=== PATIENT | male | born 1965 | race African-American/Black ===

== ENCOUNTER 2017-07-17 14:55 | Observation (INO) ==
[2017-07-17] MEDS ORDERED: SODIUM CHLORIDE 0.9% 500 ML IV STA (16:18)
--- NOTE | 2017-07-17 16:21 | EKG Report ---
Stationary ECG Study [facility] ER Test Date: 07/17/2017 4:03:47 PM Pat Name: JOSE MANUEL Department: Room: Gender: M Director Presales: : 1965 Requested by: Asa Barth Order Number: [id number] Sean MD: ERASMO HOUSTON Intervals [place] Rate: 116 P: 53 [place]: 154 QRS: 53 QRSD: 82 T: -61 QT: 296 QTc: 365 Interpretive Statements SINUS TACHYCARDIA LEFT ATRIAL ABNORMALITY LEFT VENTRICULAR HYPERTROPHY AND ST-T CHANGE Electronically Signed On 07-19-17 18:07:32 CDT by ERASMO HOUSTON [email or web address]
[2017-07-17 16:26] LABS: Basophils % 0.1 % (0.0-0.8); Eosinophils # 0.1 10*3/uL (0.0-0.87); Hematocrit 23.1 VOL% (42.0-52.0); Hemoglobin 6.9 GM/DL (14.0-18.0); Immature Granulocytes % 0.4 %; Immature Granulocytes Absolute 0.03 #; Lymphocytes # 1.6 10*3/uL (1.4-4.0); Lymphocytes % 20.2 % (21.2-54.2); Mean Corpuscular HGB Conc 29.9 GM/DL (32-36); Mean Corpuscular Hemoglobin 29 PG (27-34); Mean Corpuscular Volume 98.3 FL (87-102); Mean Platelet Volume 9.9 FL (9.6-12.0); Monocytes # 0.5 10*3/uL (0.11-0.8); Monocytes % 5.8 % (1.7-12.7); NRBC # 0.02 10*3/uL; Neutrophils # 5.9 10*3/uL (1.4-7.4); Neutrophils % 72.5 % (38.7-73.9); Platelet Count 436 T/CUMM (130-400); Red Blood Count 2.35 MC/CUMM (3.8-5.5); Red Cell Distribution Width 17.1 % (9.3-17.3); White Blood Count 8.1 T/CUMM (4-12)
--- NOTE | 2017-07-17 16:33 | Emergency Department Note ---
Ezio Caballero Manpreet, am scribing for, and in the presence of, Asa Contreras MD 16:19. Ben Caballero Charles R, MD, personally performed the services described in this documentation, ascribed by Mo Holguin in my presence, and it is both accurate and complete 632 . Arrival - Arrival Chief Complaint: Non-Specific Stated Complaint: Anemia ED Nursing Triage Note: Pt transferred from [facility] due to Low H&H that was drawn on 07-11-17. Significant HX. Mode of Arrival: Stretcher Limitations: Altered Mental Status Source: EMS - History of Present Illness HPI Narrative: Pt is a 52 y/o male who is transferred from [facility] with CC of low H&H that was drawn on 07-11-17. Pt has a PMHx of CVA, HTN, CAD and does not communicate. Pt also has large cubicle ulcers on his back. No other pains/ complaints reported to the ED. Onset (ago): hour(s) Consistency: constant Allergies/Adverse Reactions: Allergies Allergy/AdvReac Type Severity Reaction Status Date / Time No Known Allergies Allergy Verified 07/17/17 15:06 Review of System - Review of System ROS unobtainable: due to mental status (Secondary previous CVA) Medical,Surgical,& Family Hx - Medical History Cardio: History of: Cerebrovascular Disease, CAD, Hypertension Neurology: History of: Cerebrovascular Accident, Seizures Hematology: History of: Anemia - Surgical History Abdominal Surgeries: Surgical HX of: Abdominal Surgery (PEG) - Social History Smoking Status: Unknown if ever smoked Frequency of Alcohol Use: Unknown Type of Drug Use: Unknown Exam Vital Signs: Vital Signs Temperature 98.1 F 07/17/17 15:02 Pulse Rate 116 H 07/17/17 15:02 Respiratory Rate 22 07/17/17 15:31 Blood Pressure 140/87 07/17/17 15:02 O2 Sat by Pulse Oximetry 99 07/17/17 15:02 - General Exam limited due to: ALOC General appearance: other (Blank stare to right) - Eye Eye exam: Present: other (Sunken and pale conjictiva) - Neck Neck exam: Present: other (Torticollis of neck) - Respiratory Respiratory exam: Present: rales, rhonchi - Cardiovascular Cardiovascular exam: Present: normal rhythm, tachycardia - Rectal Exam Rectal exam: Present: heme (+) stool - Extremities Exam Extremities exam: Present: other (Atrophy of muscles) - Back Exam Back exam: Present: other (Large stage 4 cubicle ulcer on lower back) Course - Consultations Consultation #1: Hospitalist will admit patient Time: 16:58 Results - Labs CBC & BMP: 07/17/17 15:57 07/17/17 15:57 Lab Results: I have reviewed the patients labs Labs: Laboratory Tests 07/17/17 07/17/17 07/17/17 15:57 15:57 15:57 WBC 8.1 RBC 2.35 L Hgb 6.9 L Hct 23.1 L MCV 98.3 MCHC 29.9 L Plt Count 436 H Lymph % (Auto) 20.2 L INR 1.1 PT Patient/Control Mix 12.1 Sodium 140 Potassium 4.4 Chloride 105 Carbon Dioxide 28 Anion Gap 11.4 BUN 20 H Creatinine 0.90 GFR Calculation 108 BUN/Creatinine Ratio 22.00 H Glucose 110 H AST 67 H ALT 122 H Albumin 1.6 L Globulin 6.3 H Albumin/Globulin Ratio 0.2 L Disposition Clinical Impression: Debility, unspecified, History of CVA (cerebrovascular accident), Lower extremity weakness, Anemia, Hypoalbuminemia due to protein-calorie malnutrition , Failure to thrive, Sacral decubitus ulcer, stage IV, Chronic anticoagulation Case discussed with: patient Disposition: Still a Patient Condition: Stable Time of Disposition: 17:00
[2017-07-17 16:39] LABS: INR 1.1; PT Patient Result 12.1 SECS
[2017-07-17 16:50] LABS: Alanine Aminotransferase 122 U/L (16-61); Albumin 1.6 G/DL (3.4-5.0); Alkaline Phosphatase 91 U/L (45-117); Aspartate Amino Transferase 67 U/L (0-37); Bilirubin,Total < 0.39 MG/DL (0.2-1.0); Blood Urea Nitrogen 20 MG/DL (7-18); Calcium 8.8 MG/DL (8.5-10.1); Glucose 110 MG/DL (74-106); Magnesium 2.1 MG/DL (1.8-2.4); Osmolality,Calculated 282.4 MOS/KG (273-304); Potassium 4.4 MMOL/L (3.5-5.1); Sodium 140 MMOL/L (136-145); Total Protein 7.9 G/DL (6.4-8.3)
--- NOTE | 2017-07-17 17:01 | XRay Report ---
Single view the chest. Indication: Generalized weakness. The heart is normal in size. There is uncoiling of the thoracic aorta which often indicates chronic hypertension. There is a linear area of atelectasis in the right midlung field. There is mild hypoaeration at the left lung base. No consolidation, pneumothorax, or pleural effusion. Degenerative changes of the spinal column and shoulders. Impression: Right midlung atelectasis. Left basilar hypoaeration. PROCEDURE INTERPRETED AT [facility] DEPARTMENT OF RADIOLOGY Final Report Signed by: Dr. Janey Montenegro
[2017-07-17 17:21] LABS: Troponin I Only < 0.015 NG/ML (0.00-0.045)
[2017-07-17 17:53] LABS: Apearance,Urine CLEAR (Clear); Bilirubin,Urine Negative (Negative); Blood, Urine Negative (Negative); Glucose,Urine (UA) Negative (Negative); Ketones,Urine Negative (Negative); Nitrite,Urine Negative (Negative); Protein,Urine 30 MG/DL; RBC,Urine 1 /HPF (0-4); Squamous Epithelial Cell,Urine Occasional /HPF (0-10); Urine Color Yellow (Yellow); Urine Specific Gravity 1.013 (1.001-1.035); Urine Urobilinogen < 2.0 EU/DL (0.2-1.0); WBC,Urine 1 /HPF (0-6)
--- NOTE | 2017-07-17 18:10 | Hospitalist History & Physical ---
Assessment and Plan (1) Anemia Status: Acute Assessment and plan: The patient is admitted to the hospital for transfusion. We will continue his usual home medications and PEG tube feedings. Current Visit: Yes (2) Chronic anticoagulation Status: Acute Current Visit: Yes (3) History of CVA (cerebrovascular accident) Status: Acute Current Visit: Yes (4) Lower extremity weakness Status: Acute Current Visit: Yes (5) Sacral decubitus ulcer, stage IV Status: Acute Current Visit: Yes History of Present Illness Chief complaint: Anemia History of present illness: Mr. Edge is a 52 year old male who is a resident at [facility]. The patient had recently transferred from [facility] in [place]. The patient has apparently previous neurologic injury perhaps brain hemorrhage. The patient is awake and alert with right gaze preference. The patient has quadriplegia. The patient is noncommunicative. The patient does not appear to be in discomfort. The patient has large decubitus wounds on the sacrum. The patient was sent from [facility] after he was treated for osteomyelitis of the spine on account of the decubitus. The patient was found to be anemic at [facility] and referred to [facility] for transfusion. Home Medications Medication Instructions Recorded Confirmed Type Albuterol/Ipratropium Neb [Duoneb] 3 ml RESP TX RT Q6H 07/17/17 07/17/17 History Atorvastatin [Lipitor] 20 mg PEG DAILY@0900 07/17/17 07/17/17 History Baclofen Tab [Lioresal] 10 mg PEG TID@0900,1300,1700 07/17/17 07/17/17 History Carvedilol [Coreg] 25 mg PEG BID@0900,1700 07/17/17 07/17/17 History Diltiazem Tab [Cardizem Tab] 60 mg PEG QID@09,13,17,21 07/17/17 07/17/17 History Doxycycline Hyclate Cap 100 mg PEG BID@0900,2100 07/17/17 07/17/17 History [Vibramycin Cap] Fluticasone 50 Mcg Nasal [place] 1 spray BOTH NARES BID 07/17/17 07/17/17 History [Flonase Nasal [place]] Pantoprazole Tab [Protonix Tab] 40 mg PEG 0900 07/17/17 07/17/17 History Sennosides [Senna] 17.6 mg PO BEDTIME 07/17/17 07/17/17 History Warfarin [Coumadin] 7.5 mg PEG DAILY@2100 07/17/17 07/17/17 History hydrALAZINE TAB [Apresoline Tab] 100 mg PEG TID 07/17/17 07/17/17 History levETIRAcetam TAB [Keppra Tab] 500 mg PEG BID 07/17/17 07/17/17 History Allergies Allergy/AdvReac Type Severity Reaction Status Date / Time No Known Allergies Allergy Verified 07/17/17 15:06 Medical,Surgical,& Family Hx - Medical History Cardio: History of: Cerebrovascular Disease, CAD, Hypertension Neurology: History of: Cerebrovascular Accident, Seizures Hematology: History of: Anemia - Surgical History Abdominal Surgeries: Surgical HX of: Abdominal Surgery (PEG) - Family History Family History: Reports;: Family Hypertension - Social History Smoking Status: Former smoker Frequency of Alcohol Use: Unknown Type of Drug Use: Unknown Marital Status: Single Lives With:: shelter Functional capacity: bed bound ROS unobtainable: other (Records were reviewed. Patient is noncommunicative due to neurologic injury) Exam - Constitutional Vitals: Period Temp Pulse Resp BP Sys/Mckoy Pulse Ox Last 24 Hr 98.1 F-98.1 F 114-120 18-23 130-140/87-94 97-100 Exam: Constitutional System: No distress. No tremulousness. The patient has right gaze preference and is not communicative. The patient does not move extremities. The patient has muscular wasting of the lower extremities. Head: Normocephalic, atraumatic. Ears, Nose and Throat System: No evidence of Otitis or Mastoiditis. No epistaxis or discharge Eyes System: Pupils equal, round, and reactive. Extraocular muscles intact. Neck: Supple, without adenopathy, No jugular venous distention. No thyromegaly , neck mass, or prior surgery apparent. Respiratory System: Chest clear to auscultation. Cardiovascular System: Heart with regular rate and rhythm. No murmur. GI System: Abdomen soft, nontender. Normo active bowel sounds present. Musculoskeletal System: limbs with 1+ pedal edema. Full distal pulses. Neurological System: Unresponsive and quadriplegic Psychiatric System: Patient is mute Results - Labs CBC & BMP: 07/17/17 15:57 07/17/17 15:57 Lab Results: I have reviewed the past 24 hour labs
[2017-07-17] MEDS ORDERED: ONDANSETRON 4 MG/2 ML VIAL IV PRN (20:08)
[2017-07-17] MEDS ORDERED: SODIUM CHLORIDE 0.9% 250 ML IV PRN (20:08)
[2017-07-17] MEDS ORDERED: GLUCAGON 1 MG VIAL IM PRN (20:08)
[2017-07-17] MEDS ORDERED: MORPHINE 2 MG/1 ML SYRINGE IV PRN (20:08)
[2017-07-17] MEDS ORDERED: DEXTROSE 50% 25 GM/50 ML SYRINGE IV PRN (20:08)
[2017-07-17] MEDS ORDERED: ENOXAPARIN 40 MG/0.4 ML SYRINGE SUBCUT SCH (20:30)
[2017-07-17] MEDS: ALBUTEROL/IPRATROPIUM 3 ML NEB RESP TX SCH (20:39)
[2017-07-17] MEDS ORDERED: WARFARIN 7.5 MG TABLET PEG SCH (21:00)
[2017-07-17] MEDS ORDERED: SENNA 8.6 MG TABLET PO SCH (21:00)
[2017-07-17] MEDS: INSULIN LISPRO 100 UNIT/ML SUBCUT SCH (23:22)
[2017-07-17] MEDS: DILTIAZEM 60 MG TABLET PO SCH (23:31)
[2017-07-18] MEDS: ALBUTEROL/IPRATROPIUM 3 ML NEB RESP TX SCH ×2 (00:07→07:39)
[2017-07-18] MEDS: levETIRAcetam 500 MG TABLET PEG SCH ×2 (00:33→09:56)
[2017-07-18] MEDS: FLUTICASONE 50 MCG NASAL SPRAY 16 GM BOTTLE BOTH NARES SCH ×2 (00:33→10:01)
[2017-07-18] MEDS: DOXYCYCLINE HYCLATE 100 MG CAPSULE PEG SCH ×2 (00:33→09:56)
[2017-07-18] MEDS: INSULIN LISPRO 100 UNIT/ML SUBCUT SCH ×3 (00:37→13:00)
[2017-07-18] MEDS: ACETAMINOPHEN 325 MG TABLET PO PRN ×2 (01:09→09:55)
[2017-07-18] MEDS: SODIUM CHLORIDE 0.9% 1,000 ML IV SCH ×2 (05:31→12:59)
[2017-07-18] MEDS ORDERED: ATORVASTATIN 20 MG TABLET PEG SCH (09:00)
[2017-07-18] MEDS ORDERED: PANTOPRAZOLE 40 MG TABLET PO SCH ×2 (09:00)
[2017-07-18] MEDS ORDERED: CARVEDILOL 25 MG TABLET PEG SCH (09:00)
[2017-07-18] MEDS: DILTIAZEM 60 MG TABLET PO SCH ×2 (09:56→14:38)
[2017-07-18] MEDS: BACLOFEN 10 MG TABLET PEG SCH ×2 (09:56→14:38)
[2017-07-18] MEDS ORDERED: SODIUM HYPOCHLORITE 0.25% IRRIG 473 ML BOTTLE TOP SCH (10:00)
--- NOTE | 2017-07-18 10:15 | Discharge Summary ---
<Jeanette Middleton - Last Filed: 07/18/17 09:47> Hospital Course - Hospital Course Hospital Course: 52-year-old -[place] male who is a resident at [facility] recently transferred from [facility]. He apparently had previous neurologic injury with brain hemorrhage and quadriplegia. Patient is noncommunicative but does not appear appear to be in discomfort. He does have a large decubitus wound on the sacrum that is clean with wound care orders written. Patient was found to be severely anemic and admitted by the hospitalist on 07/17/2017 for blood transfusion. Patient received 3 units of blood and his posttransfusion H&H is improved. He will be transferred back to [facility] today. Care coordination, chart review, and completed discharge paperwork took approximately 30 minutes. - Time spent with patient Time with patient DS: Greater than 30 minutes Diagnosis - Discharge Diagnosis (1) History of CVA (cerebrovascular accident) Status: Chronic (2) Anemia Status: Chronic (3) Sacral decubitus ulcer, stage IV Status: Chronic Specialty Discharge - Follow Up or Referrals Follow up with: your,pcp [Other] - 1 Month Discharge Plan - Discharge Data Disposition: Disch/Xfer to Snf Condition at Discharge: Stable Discharge Diet: advance to your usual diet Activity: resume usual activities as tolerated - Discharge Medications Continue Albuterol/Ipratropium Neb [Duoneb] 3 ml RESP TX RT Q6H Warfarin [Coumadin] 7.5 mg PEG DAILY@2100 levETIRAcetam TAB [Keppra Tab] 500 mg PEG BID Pantoprazole Tab [Protonix Tab] 40 mg PEG 0900 hydrALAZINE TAB [Apresoline Tab] 100 mg PEG TID Fluticasone 50 Mcg Nasal [place] [Flonase Nasal [place]] 1 spray BOTH NARES BID Doxycycline Hyclate Cap [Vibramycin Cap] 100 mg PEG BID@0900,2100 Diltiazem Tab [Cardizem Tab] 60 mg PEG QID@09,13,17,21 Baclofen Tab [Lioresal] 10 mg PEG TID@0900,1300,1700 Atorvastatin [Lipitor] 20 mg PEG DAILY@0900 Sennosides [Senna] 17.6 mg PO BEDTIME Carvedilol [Coreg] 25 mg PEG BID@0900,1700 - Follow Up or Referral Follow Up: your,pcp [Other] - 1 Month - Forms/Instructions Exam - Constitutional Vitals: Period Temp Pulse Resp BP Sys/Mckoy Pulse Ox Last 24 Hr 97.5 F-101.1 F 104-123 16-23 99-141/53-94 95-100 Exam: 52-year-old -[place] male, no acute distress, right gaze preference, not communicative. Chest clear CV regular rate and rhythm Abdomen soft nontender Extremities with 1+ pedal edema Discharge Results Procedures and tests throughout hospitalization: Pending Orders 07/17/17 Blood Culture Stat 07/18/17 11:10 Basic Metabolic Panel w/Mg IN AM Labs on day of discharge: Labs from last 24 hours 07/18/17 07/18/17 07/17/17 11:40 05:38 23:35 WBC RBC Hgb Hct MCV MCH MCHC RDW Plt Count MPV Neut % (Auto) Lymph % (Auto) [place] % (Auto) Eos % (Auto) Baso % (Auto) Neut # (Auto) Lymph # (Auto) [place] # (Auto) Eos # (Auto) Baso # (Auto) Immature Gran % Nucleated RBC % Immature Gran # Nucleated RBCs # Immature Plt Fraction INR PT Patient/Control Mix Sodium Potassium Chloride Carbon Dioxide Anion Gap BUN Creatinine GFR Calculation BUN/Creatinine Ratio Glucose POC Glucose 132 H 131 H 140 H Calculated Osmolality Lactic Acid Calcium Magnesium Total Bilirubin AST ALT Alkaline Phosphatase Total Creatine Kinase CK-MB (CK-2) Troponin I Total Protein Albumin Globulin Albumin/Globulin Ratio Urine Color Urine Appearance Urine pH Ur Specific [place] Urine Protein Urine Glucose (UA) Urine Ketones Urine Blood Urine Nitrate Urine Bilirubin Urine Urobilinogen Urine Leukocytes Urine RBC Urine WBC Ur Squamous Epith Cells Ur Culture Indicated? Blood Type Antibody Screen Crossmatch Blood Bank Comment 07/17/17 07/17/17 07/17/17 22:11 17:50 15:57 WBC RBC Hgb Hct MCV MCH MCHC RDW Plt Count MPV Neut % (Auto) Lymph % (Auto) [place] % (Auto) Eos % (Auto) Baso % (Auto) Neut # (Auto) Lymph # (Auto) [place] # (Auto) Eos # (Auto) Baso # (Auto) Immature Gran % Nucleated RBC % Immature Gran # Nucleated RBCs # Immature Plt Fraction INR PT Patient/Control Mix Sodium Potassium Chloride Carbon Dioxide Anion Gap BUN Creatinine GFR Calculation BUN/Creatinine Ratio Glucose POC Glucose 115 H Calculated Osmolality Lactic Acid Calcium Magnesium Total Bilirubin AST ALT Alkaline Phosphatase Total Creatine Kinase CK-MB (CK-2) Troponin I Total Protein Albumin Globulin Albumin/Globulin Ratio Urine Color Yellow Urine Appearance Clear Urine pH 6.0 Ur Specific [place] 1.013 Urine Protein 30 Urine Glucose (UA) Negative Urine Ketones Negative Urine Blood Negative Urine Nitrate Negative Urine Bilirubin Negative Urine Urobilinogen < 2.0 H Urine Leukocytes Negative Urine RBC 1 Urine WBC 1 Ur Squamous Epith Cells Occasional Ur Culture Indicated? Not indicated Blood Type O POSITIVE Antibody Screen Cancelled Crossmatch See Detail Blood Bank Comment Cancelled 07/17/17 07/17/17 07/17/17 15:57 15:57 15:57 WBC RBC Hgb Hct MCV MCH MCHC RDW Plt Count MPV Neut % (Auto) Lymph % (Auto) [place] % (Auto) Eos % (Auto) Baso % (Auto) Neut # (Auto) Lymph # (Auto) [place] # (Auto) Eos # (Auto) Baso # (Auto) Immature Gran % Nucleated RBC % Immature Gran # Nucleated RBCs # Immature Plt Fraction INR PT Patient/Control Mix Sodium Potassium Chloride Carbon Dioxide Anion Gap BUN Creatinine GFR Calculation BUN/Creatinine Ratio Glucose POC Glucose Calculated Osmolality Lactic Acid 1.3 Calcium Magnesium Total Bilirubin AST ALT Alkaline Phosphatase Total Creatine Kinase 113 CK-MB (CK-2) 1.3 Troponin I < 0.015 Total Protein Albumin Globulin Albumin/Globulin Ratio Urine Color Urine Appearance Urine pH Ur Specific [place] Urine Protein Urine Glucose (UA) Urine Ketones Urine Blood Urine Nitrate Urine Bilirubin Urine Urobilinogen Urine Leukocytes Urine RBC Urine WBC Ur Squamous Epith Cells Ur Culture Indicated? Blood Type O POSITIVE Antibody Screen Negative Crossmatch Blood Bank Comment 07/17/17 07/17/17 07/17/17 15:57 15:57 15:57 WBC 8.1 RBC 2.35 L Hgb 6.9 L Hct 23.1 L MCV 98.3 MCH 29 MCHC 29.9 L RDW 17.1 Plt Count 436 H MPV 9.9 Neut % (Auto) 72.5 Lymph % (Auto) 20.2 L [place] % (Auto) 5.8 Eos % (Auto) 1.0 Baso % (Auto) 0.1 Neut # (Auto) 5.9 Lymph # (Auto) 1.6 [place] # (Auto) 0.5 Eos # (Auto) 0.1 Baso # (Auto) 0.0 Immature Gran % 0.4 Nucleated RBC % 0.2 Immature Gran # 0.03 Nucleated RBCs # 0.02 Immature Plt Fraction 0.0 INR 1.1 PT Patient/Control Mix 12.1 Sodium 140 Potassium 4.4 Chloride 105 Carbon Dioxide 28 Anion Gap 11.4 BUN 20 H Creatinine 0.90 GFR Calculation 108 BUN/Creatinine Ratio 22.00 H Glucose 110 H POC Glucose Calculated Osmolality 282.4 Lactic Acid Calcium 8.8 Magnesium 2.1 Total Bilirubin < 0.39 AST 67 H ALT 122 H Alkaline Phosphatase 91 Total Creatine Kinase CK-MB (CK-2) Troponin I Total Protein 7.9 Albumin 1.6 L Globulin 6.3 H Albumin/Globulin Ratio 0.2 L Urine Color Urine Appearance Urine pH Ur Specific [place] Urine Protein Urine Glucose (UA) Urine Ketones Urine Blood Urine Nitrate Urine Bilirubin Urine Urobilinogen Urine Leukocytes Urine RBC Urine WBC Ur Squamous Epith Cells Ur Culture Indicated? Blood Type Antibody Screen Crossmatch Blood Bank Comment DS: Provider Date of admission: 07/17/17 17:04 Primary care physician: . No PCP Attending physician on admission: Santhosh Mills MD Discharging clinician: DAVID Heath Expected date of discharge: 07/18/17 <Layla Seaman - Last Filed: 07/18/17 11:53> Diagnosis - Discharge Diagnosis (1) Debility, unspecified Status: Acute (2) History of CVA (cerebrovascular accident) Status: Chronic (3) Anemia Status: Chronic (4) Sacral decubitus ulcer, stage IV Status: Chronic Exam - Constitutional General appearance: no acute distress - Respiratory Respiratory exam: Present: clear to auscultation bilaterally - Cardiovascular Cardiovascular exam: Present: regular rate and rhythm - GI/Abdominal GI/Abdominal exam: Present: normal bowel sounds - Extremities Exam Extremities exam: Present: other (decubitus ulcer)
[2017-07-18 11:04] VITALS: BP 117/56
[2017-07-18 12:00] LABS: Calcium 8.4 MG/DL (8.5-10.1); Osmolality,Calculated 284.3 MOS/KG (273-304); Potassium 4.3 MMOL/L (3.5-5.1)
== END 2017-07-18 16:13 ==
LOC: N.ED 14:55 → N.EDINP 14:55 → SUATTDRO 17:04 → N.3E 19:04
PROVIDERS: ADMIT Family Medicine; ATTEND Internal Medicine

== ENCOUNTER 2017-08-25 08:19 | Inpatient (IN) ==
[2017-08-25] MEDS ORDERED: SODIUM CHLORIDE 0.9% 1,650 ML IV ONE (08:29)
[2017-08-25] MEDS ORDERED: SODIUM CHLORIDE 0.9% 1,000 ML IV SCH (08:30)
[2017-08-25] MEDS ORDERED: ETOMIDATE 20 MG/10 ML VIAL IV ONE ×2 (08:30→08:31)
[2017-08-25] MEDS ORDERED: VECURONIUM 10 MG VIAL IV ONE (08:31)
[2017-08-25] MEDS ORDERED: VECURONIUM 10 MG VIAL IV STA (08:56)
[2017-08-25] MEDS ORDERED: PROPOFOL 1,000 MG/100 ML BOTTLE IV ONE (08:56)
[2017-08-25] MEDS ORDERED: PIPERACILLIN/TAZOBACTAM 3,375 MG VIAL IV ONE (08:56)
[2017-08-25] MEDS: PROPOFOL 1,000 MG/100 ML BOTTLE IV SCH ×2 (09:02→20:48)
[2017-08-25 09:09] LABS: Partial Thromboplastin Time 39.4 SECS (0-40)
[2017-08-25 09:11] LABS: Apearance,Urine CLOUDY (Clear); Bacteria,Urine Many /HPF (Few); Bilirubin,Urine Negative (Negative); Blood, Urine Moderate mg/dL (Negative); Glucose,Urine (UA) Negative (Negative); Ketones,Urine Negative (Negative); Mucus,Urine Occasional /LPF (Occasional); Nitrite,Urine Positive (Negative); Protein,Urine 100 MG/DL; RBC,Urine 41 /HPF (0-4); Urine Color Yellow (Yellow); Urine Specific Gravity 1.017 (1.001-1.035); Urine Urobilinogen < 2.0 EU/DL (0.2-1.0); WBC,Urine 130 /HPF (0-6)
[2017-08-25] MEDS: PIPERACILLIN/TAZOBACTAM 3,375 MG in SODIUM CHLORIDE 0.9% 100 ML IV SCH ×2 (09:11→16:28)
[2017-08-25 09:14] LABS: INR 2.5
[2017-08-25 09:15] LABS: PT Patient Result 25.3 SECS
[2017-08-25 09:20] LABS: ABG Base Excess 0.3 MMOL/L (-2.5-2.5); ABG HCO3 24.7 MMOL/L (20-26); ABG Oxygen Saturation 95.6 % (95-100); ABG PCO2 45.2 MM HG (35-48); ABG PH 7.367 (7.35-7.45); ABG PO2 86.8 MM HG (80-95); ABG TCO2 23.6 MMOL/L (23-27)
[2017-08-25 09:22] LABS: Basophils % 0.1 % (0.0-0.8); Eosinophils # 0.1 10*3/uL (0.0-0.87); Eosinophils % 0.6 % (0.00-10.9); Hematocrit 42.4 VOL% (42.0-52.0); Immature Granulocytes % 0.2 %; Immature Granulocytes Absolute 0.02 #; Lymphocytes # 1.8 10*3/uL (1.4-4.0); Lymphocytes % 22.2 % (21.2-54.2); Mean Corpuscular HGB Conc 27.6 GM/DL (32-36); Mean Corpuscular Hemoglobin 30 PG (27-34); Mean Corpuscular Volume 108.4 FL (87-102); Monocytes # 0.2 10*3/uL (0.11-0.8); Monocytes % 2.7 % (1.7-12.7); NRBC # 0.05 10*3/uL; Neutrophils % 74.2 % (38.7-73.9); Platelet Count 284 T/CUMM (130-400); Red Blood Count 3.91 MC/CUMM (3.8-5.5); Red Cell Distribution Width 21.2 % (9.3-17.3); White Blood Count 8.1 T/CUMM (4-12)
[2017-08-25 09:28] LABS: Hemoglobin 11.7 GM/DL (14.0-18.0)
[2017-08-25] MEDS ORDERED: MIDAZOLAM 2 MG/2 ML VIAL ONE (09:28)
[2017-08-25] MEDS ORDERED: MIDAZOLAM 2 MG/2 ML VIAL IV STA (09:30)
[2017-08-25 09:37] LABS: Alanine Aminotransferase 53 U/L (16-61); Albumin 2.1 G/DL (3.4-5.0); Alkaline Phosphatase 116 U/L (45-117); Aspartate Amino Transferase 30 U/L (0-37); Bilirubin,Total < 0.39 MG/DL (0.2-1.0); Blood Urea Nitrogen 66 MG/DL (7-18); Calcium 9.2 MG/DL (8.5-10.1); Glucose 128 MG/DL (74-106); Osmolality,Calculated 351.5 MOS/KG (273-304); Potassium 4.4 MMOL/L (3.5-5.1); Total Protein 9.2 G/DL (6.4-8.3)
[2017-08-25 09:40] LABS: Sodium 168 MMOL/L (136-145)
[2017-08-25 09:50] LABS: Band Neutrophils 4 % (0-10); Giant Platelets Few; Hypochromasia 1+; Lymphocytes 30 % (20-55); Platelet Estimate Adequate; Segmented Neutrophils 65 % (50-85); Total Cells Counted 100
[2017-08-25] MEDS ORDERED: PIPERACILLIN/TAZOBACTAM 3,375 MG in SODIUM CHLORIDE 0.9% 100 ML IV SCH (11:00)
[2017-08-25] MEDS ORDERED: DEXTROSE 5% 1,000 ML IV SCH (11:00)
[2017-08-25] MEDS: SODIUM CHLORIDE 0.45% 1,000 ML IV SCH ×2 (11:34→17:20)
[2017-08-25] MEDS: MIDAZOLAM 100 MG in SODIUM CHLORIDE 0.9% 80 ML IV SCH (11:37)
[2017-08-25] MEDS: PHENYLEPHRINE DRIP 40 MG/250 ML PREMIX IV SCH ×5 (14:35→23:46)
[2017-08-25] MEDS: ACETAMINOPHEN 325 MG TABLET PO PRN ×2 (15:00→23:47)
[2017-08-25 15:51] LABS: ABG Base Excess -0.4 MMOL/L (-2.5-2.5); ABG HCO3 24.1 MMOL/L (20-26); ABG PCO2 30.4 MM HG (35-48); ABG PH 7.478 (7.35-7.45); ABG TCO2 20.8 MMOL/L (23-27); Glucose Heart Surgery 101 MG/DL (74-106); Hematocrit Heart Surgery 27.3 PERCENT (42-52); Hemoglobin Heart Surgery 8.8 G/DL (14.0-18.0); Potassium Heart/CVR 4.3 MMOL/L (3.5-5.1)
[2017-08-25 16:30] LABS: ABG Base Excess -0.2 MMOL/L (-2.5-2.5); ABG HCO3 22.1 MMOL/L (20-26); ABG Oxygen Saturation 98.7 % (95-100); ABG PCO2 28.1 MM HG (35-48); ABG PH 7.514 (7.35-7.45); ABG PO2 153.1 MM HG (80-95)
[2017-08-25] MEDS: levETIRAcetam 500 MG TABLET PEG SCH (20:52)
[2017-08-26 00:15] LABS: Basophils % 0.2 % (0.0-0.8); Hemoglobin 8.4 GM/DL (14.0-18.0); Immature Granulocytes % 1.1 %; Immature Granulocytes Absolute 0.13 #; Lymphocytes # 2.3 10*3/uL (1.4-4.0); Mean Corpuscular HGB Conc 28.1 GM/DL (32-36); Mean Corpuscular Hemoglobin 31 PG (27-34); Mean Corpuscular Volume 108.7 FL (87-102); Mean Platelet Volume 12.7 FL (9.6-12.0); Monocytes # 0.5 10*3/uL (0.11-0.8); Monocytes % 4.3 % (1.7-12.7); NRBC # 0.02 10*3/uL; Neutrophils # 8.7 10*3/uL (1.4-7.4); Neutrophils % 74.4 % (38.7-73.9); Platelet Count 235 T/CUMM (130-400); Red Blood Count 2.75 MC/CUMM (3.8-5.5); Red Cell Distribution Width 20.6 % (9.3-17.3); White Blood Count 11.7 T/CUMM (4-12)
[2017-08-26 00:20] LABS: Hematocrit 29.8 VOL% (42.0-52.0)
[2017-08-26] MEDS: SODIUM CHLORIDE 0.45% 1,000 ML IV SCH ×4 (01:03→22:53)
[2017-08-26] MEDS: PIPERACILLIN/TAZOBACTAM 3,375 MG in SODIUM CHLORIDE 0.9% 100 ML IV SCH ×3 (01:04→16:30)
[2017-08-26 02:05] LABS: INR 3.1
[2017-08-26 02:06] LABS: PT Patient Result 31.8 SECS
[2017-08-26] MEDS: PHENYLEPHRINE DRIP 40 MG/250 ML PREMIX IV SCH ×2 (02:22→10:00)
[2017-08-26 03:00] LABS: Albumin 1.6 G/DL (3.4-5.0); Bilirubin,Total 0.5 MG/DL (0.2-1.0); Calcium 7.4 MG/DL (8.5-10.1); Osmolality,Calculated 341.5 MOS/KG (273-304); Potassium 4.5 MMOL/L (3.5-5.1); Total Protein 6.3 G/DL (6.4-8.3)
[2017-08-26 03:37] LABS: Anisocytosis 1+; Hypochromasia 1+; Platelet Estimate Normal
[2017-08-26 03:45] LABS: ABG HCO3 21.9 MMOL/L (20-26); ABG Oxygen Saturation 99.9 % (95-100); ABG PCO2 33.1 MM HG (35-48); ABG PH 7.413 (7.35-7.45); Allen Test Positive; Pt O2 Delivery Device Ventilator
[2017-08-26] MEDS: levETIRAcetam 500 MG TABLET PEG SCH ×2 (09:00→20:04)
[2017-08-26] MEDS: MIDAZOLAM 100 MG in SODIUM CHLORIDE 0.9% 80 ML IV SCH (09:30)
[2017-08-26] MEDS: MUPIROCIN 2% OINT 22 GM TUBE TOP SCH ×2 (12:05→20:07)
[2017-08-26] MEDS: PROPOFOL 1,000 MG/100 ML BOTTLE IV SCH (16:30)
[2017-08-27] MEDS: PHENYLEPHRINE DRIP 40 MG/250 ML PREMIX IV SCH ×2 (00:07→14:23)
[2017-08-27] MEDS: PIPERACILLIN/TAZOBACTAM 3,375 MG in SODIUM CHLORIDE 0.9% 100 ML IV SCH ×2 (01:09→08:15)
[2017-08-27 03:23] LABS: ABG Base Excess -5.2 MMOL/L (-2.5-2.5); ABG HCO3 20.1 MMOL/L (20-26); ABG Oxygen Saturation 99.9 % (95-100); ABG PCO2 29.3 MM HG (35-48); ABG PH 7.417 (7.35-7.45); ABG TCO2 18.1 MMOL/L (23-27); Allen Test Positive; Pt O2 Delivery Device Ventilator
[2017-08-27] MEDS: SODIUM CHLORIDE 0.45% 1,000 ML IV SCH ×5 (05:53→23:31)
[2017-08-27 06:44] LABS: Basophils % 0.1 % (0.0-0.8); Eosinophils # 0.2 10*3/uL (0.0-0.87); Eosinophils % 2.4 % (0.00-10.9); Hematocrit 22.8 VOL% (42.0-52.0); Immature Granulocytes Absolute 0.07 #; Lymphocytes # 1.2 10*3/uL (1.4-4.0); Lymphocytes % 17.5 % (21.2-54.2); Mean Corpuscular HGB Conc 28.5 GM/DL (32-36); Mean Corpuscular Hemoglobin 30 PG (27-34); Mean Platelet Volume 12.6 FL (9.6-12.0); Monocytes # 0.3 10*3/uL (0.11-0.8); Monocytes % 4.3 % (1.7-12.7); Neutrophils # 5.2 10*3/uL (1.4-7.4); Neutrophils % 74.7 % (38.7-73.9); Red Cell Distribution Width 19.6 % (9.3-17.3)
[2017-08-27 07:42] LABS: Red Blood Count 2.15 MC/CUMM (3.8-5.5)
[2017-08-27 07:43] LABS: Hemoglobin 6.5 GM/DL (14.0-18.0); Platelet Count 170 T/CUMM (130-400)
[2017-08-27 07:54] LABS: Calcium 8.4 MG/DL (8.5-10.1)
[2017-08-27 07:55] LABS: Osmolality,Calculated 321.3 MOS/KG (273-304); Potassium 3.8 MMOL/L (3.5-5.1)
[2017-08-27 07:56] LABS: Band Neutrophils 3 % (0-10); Eosinophils 1 % (0-10); Hypochromasia 1+; Lymphocytes 9 % (20-55); Platelet Estimate Normal; Segmented Neutrophils 85 % (50-85); Total Cells Counted 100
[2017-08-27 07:57] LABS: Giant Platelets Few; Ovalocytes Slight
[2017-08-27] MEDS: PROPOFOL 1,000 MG/100 ML BOTTLE IV SCH ×2 (08:08→16:40)
[2017-08-27] MEDS: levETIRAcetam 500 MG TABLET PEG SCH ×2 (08:15→21:05)
[2017-08-27] MEDS: MIDAZOLAM 100 MG in SODIUM CHLORIDE 0.9% 80 ML IV SCH (08:42)
[2017-08-27] MEDS: MUPIROCIN 2% OINT 22 GM TUBE TOP SCH ×2 (09:01→21:05)
[2017-08-27 09:17] LABS: INR 3.6
[2017-08-27 09:25] LABS: PT Patient Result 36.1 SECS
[2017-08-27] MEDS ORDERED: SODIUM CHLORIDE 0.9% 250 ML IV PRN (10:00)
[2017-08-27 10:34] LABS: % Iron Saturation 35.8 % (18-50)
[2017-08-27] MEDS ORDERED: GLUCAGON 1 MG VIAL IM PRN (13:24)
[2017-08-27] MEDS: MEROPENEM 500 MG in SODIUM CHLORIDE 0.9% 50 ML IV SCH ×2 (14:28→21:05)
[2017-08-27] MEDS: INSULIN REGULAR 100 UNIT/ML SUBCUT SCH (17:48)
[2017-08-27 19:05] LABS: Hematocrit 28.9 VOL% (42.0-52.0)
[2017-08-27 19:08] LABS: Hemoglobin 9.1 GM/DL (14.0-18.0)
[2017-08-28] MEDS: INSULIN REGULAR 100 UNIT/ML SUBCUT SCH ×4 (01:03→18:29)
[2017-08-28] MEDS: SODIUM CHLORIDE 0.45% 1,000 ML IV SCH ×6 (01:03→20:17)
[2017-08-28 02:33] LABS: ABG Base Excess -4.1 MMOL/L (-2.5-2.5); ABG PCO2 28.8 MM HG (35-48); ABG PH 7.433 (7.35-7.45); ABG TCO2 17.6 MMOL/L (23-27)
[2017-08-28] MEDS: MEROPENEM 500 MG in SODIUM CHLORIDE 0.9% 50 ML IV SCH ×3 (05:49→20:45)
[2017-08-28 06:31] LABS: Basophils % 0.2 % (0.0-0.8); Eosinophils # 0.2 10*3/uL (0.0-0.87); Eosinophils % 2.7 % (0.00-10.9); Hematocrit 28.5 VOL% (42.0-52.0); Hemoglobin 8.6 GM/DL (14.0-18.0); Immature Granulocytes % 0.3 %; Immature Granulocytes Absolute 0.02 #; Lymphocytes # 1.1 10*3/uL (1.4-4.0); Mean Corpuscular HGB Conc 30.2 GM/DL (32-36); Mean Corpuscular Hemoglobin 30 PG (27-34); Mean Corpuscular Volume 98.6 FL (87-102); Monocytes # 0.3 10*3/uL (0.11-0.8); Monocytes % 4.4 % (1.7-12.7); Neutrophils # 4.4 10*3/uL (1.4-7.4); Neutrophils % 73.4 % (38.7-73.9); Platelet Count 182 T/CUMM (130-400); Red Blood Count 2.89 MC/CUMM (3.8-5.5); Red Cell Distribution Width 20.2 % (9.3-17.3)
[2017-08-28 06:37] LABS: INR 3.2
[2017-08-28 06:42] LABS: PT Patient Result 32.8 SECS
[2017-08-28 07:09] LABS: Magnesium 2.4 MG/DL (1.8-2.4); Prealbumin 11.5 MG/DL (20-40)
[2017-08-28 07:18] LABS: Eosinophils 3 % (0-10); Giant Platelets Few; Hypochromasia 1+; Lymphocytes 12 % (20-55); Ovalocytes Slight; Platelet Estimate Normal; Segmented Neutrophils 80 % (50-85); Total Cells Counted 100
[2017-08-28 07:40] LABS: Albumin 1.4 G/DL (3.4-5.0); Bilirubin,Total 0.4 MG/DL (0.2-1.0); Osmolality,Calculated 316.6 MOS/KG (273-304); Potassium 3.6 MMOL/L (3.5-5.1); Total Protein 5.8 G/DL (6.4-8.3)
[2017-08-28] MEDS: levETIRAcetam 500 MG TABLET PEG SCH ×2 (10:11→21:16)
[2017-08-28] MEDS: MUPIROCIN 2% OINT 22 GM TUBE TOP SCH ×2 (10:11→21:16)
[2017-08-28] MEDS: PROPOFOL 1,000 MG/100 ML BOTTLE IV SCH (10:13)
[2017-08-28] MEDS: hydrALAZINE 20 MG/1 ML VIAL IV PRN (18:35)
[2017-08-29] MEDS: INSULIN REGULAR 100 UNIT/ML SUBCUT SCH ×4 (00:16→18:15)
[2017-08-29 03:57] LABS: ABG Base Excess -1.7 MMOL/L (-2.5-2.5); ABG Oxygen Saturation 99.8 % (95-100); ABG PCO2 34.9 MM HG (35-48); ABG PH 7.417 (7.35-7.45); Allen Test Positive; Pt O2 Delivery Device Ventilator
[2017-08-29] MEDS: SODIUM CHLORIDE 0.45% 1,000 ML IV SCH ×2 (05:09→09:39)
[2017-08-29] MEDS: MEROPENEM 500 MG in SODIUM CHLORIDE 0.9% 50 ML IV SCH (05:32)
[2017-08-29 05:39] LABS: Basophils % 0.2 % (0.0-0.8); Eosinophils # 0.1 10*3/uL (0.0-0.87); Eosinophils % 2.3 % (0.00-10.9); Hematocrit 26.4 VOL% (42.0-52.0); Hemoglobin 8.1 GM/DL (14.0-18.0); Immature Granulocytes % 0.4 %; Immature Granulocytes Absolute 0.02 #; Lymphocytes # 1.2 10*3/uL (1.4-4.0); Lymphocytes % 23.2 % (21.2-54.2); Mean Corpuscular HGB Conc 30.7 GM/DL (32-36); Mean Corpuscular Hemoglobin 30 PG (27-34); Mean Corpuscular Volume 98.5 FL (87-102); Mean Platelet Volume 12.5 FL (9.6-12.0); Monocytes # 0.2 10*3/uL (0.11-0.8); Monocytes % 4.4 % (1.7-12.7); NRBC # 0.02 10*3/uL; Neutrophils # 3.6 10*3/uL (1.4-7.4); Neutrophils % 69.5 % (38.7-73.9); Platelet Count 173 T/CUMM (130-400); Red Blood Count 2.68 MC/CUMM (3.8-5.5); Red Cell Distribution Width 19.6 % (9.3-17.3); White Blood Count 5.2 T/CUMM (4-12)
[2017-08-29 05:46] LABS: INR 1.5; PT Patient Result 16.1 SECS
[2017-08-29 06:04] LABS: Band Neutrophils 1 % (0-10); Eosinophils 2 % (0-10); Giant Platelets Few; Hypochromasia 1+; Lymphocytes 22 % (20-55); Ovalocytes Slight; Platelet Estimate Normal; Segmented Neutrophils 73 % (50-85); Total Cells Counted 100
[2017-08-29 06:16] LABS: Calcium 7.8 MG/DL (8.5-10.1); Osmolality,Calculated 312.4 MOS/KG (273-304); Potassium 3.5 MMOL/L (3.5-5.1)
[2017-08-29] MEDS ORDERED: DEXTROSE 5% 1,000 ML IV SCH (08:30)
[2017-08-29] MEDS: SODIUM CHLORIDE 23.4% CONC INJ 38.5 MEQ in STERILE WATER INJ 1,000 ML IV SCH ×3 (09:29→23:54)
[2017-08-29] MEDS: levETIRAcetam 500 MG TABLET PEG SCH ×2 (09:32→22:03)
[2017-08-29] MEDS: MUPIROCIN 2% OINT 22 GM TUBE TOP SCH ×2 (09:32→22:03)
[2017-08-29] MEDS: PHENYLEPHRINE DRIP 40 MG/250 ML PREMIX IV SCH (09:39)
[2017-08-29] MEDS: hydrALAZINE 20 MG/1 ML VIAL IV PRN (09:47)
[2017-08-29] MEDS: cefTRIAXone 1,000 MG in SYRINGE 1 EACH IV SCH (10:11)
[2017-08-29] MEDS: MEROPENEM 500 MG in SYRINGE 1 EACH IV SCH ×2 (13:30→22:00)
[2017-08-29] MEDS: PROPOFOL 1,000 MG/100 ML BOTTLE IV SCH (18:15)
[2017-08-30] MEDS: INSULIN REGULAR 100 UNIT/ML SUBCUT SCH ×4 (01:11→17:30)
[2017-08-30] MEDS: hydrALAZINE 20 MG/1 ML VIAL IV PRN ×2 (01:40→20:21)
[2017-08-30 04:32] LABS: Pt O2 Delivery Device Ventilator
[2017-08-30 04:33] LABS: ABG Base Excess 0.5 MMOL/L (-2.5-2.5); ABG HCO3 24.9 MMOL/L (20-26); ABG PCO2 31.2 MM HG (35-48); ABG PH 7.484 (7.35-7.45); ABG TCO2 21.8 MMOL/L (23-27)
[2017-08-30] MEDS: SODIUM CHLORIDE 23.4% CONC INJ 38.5 MEQ in STERILE WATER INJ 1,000 ML IV SCH ×3 (05:08→15:34)
[2017-08-30 06:02] LABS: INR 1.1; PT Patient Result 11.9 SECS
[2017-08-30] MEDS: MEROPENEM 500 MG in SYRINGE 1 EACH IV SCH ×3 (06:10→20:30)
[2017-08-30] MEDS: MUPIROCIN 2% OINT 22 GM TUBE TOP SCH ×2 (09:29→20:21)
[2017-08-30] MEDS: levETIRAcetam 500 MG TABLET PEG SCH ×2 (09:29→20:21)
[2017-08-30] MEDS: PROPOFOL 1,000 MG/100 ML BOTTLE IV SCH ×2 (09:30→20:35)
[2017-08-30 10:05] LABS: Basophils % 0.2 % (0.0-0.8); Eosinophils # 0.1 10*3/uL (0.0-0.87); Eosinophils % 2.2 % (0.00-10.9); Hematocrit 25.5 VOL% (42.0-52.0); Immature Granulocytes % 0.7 %; Immature Granulocytes Absolute 0.04 #; Lymphocytes # 1.3 10*3/uL (1.4-4.0); Lymphocytes % 24.3 % (21.2-54.2); Mean Corpuscular HGB Conc 31.4 GM/DL (32-36); Mean Corpuscular Hemoglobin 31 PG (27-34); Mean Corpuscular Volume 97.7 FL (87-102); Monocytes # 0.4 10*3/uL (0.11-0.8); Monocytes % 6.5 % (1.7-12.7); Neutrophils # 3.6 10*3/uL (1.4-7.4); Neutrophils % 66.1 % (38.7-73.9); Platelet Count 166 T/CUMM (130-400); Red Blood Count 2.61 MC/CUMM (3.8-5.5); Red Cell Distribution Width 18.9 % (9.3-17.3); White Blood Count 5.4 T/CUMM (4-12)
[2017-08-30 10:26] LABS: Albumin 1.3 G/DL (3.4-5.0); Bilirubin,Total 0.4 MG/DL (0.2-1.0); Calcium 7.7 MG/DL (8.5-10.1); Osmolality,Calculated 295.6 MOS/KG (273-304); Potassium 3.7 MMOL/L (3.5-5.1); Total Protein 5.7 G/DL (6.4-8.3)
[2017-08-30] MEDS: cefTRIAXone 1,000 MG in SYRINGE 1 EACH IV SCH (11:10)
[2017-08-31] MEDS: INSULIN REGULAR 100 UNIT/ML SUBCUT SCH ×4 (00:32→18:03)
[2017-08-31] MEDS: SODIUM CHLORIDE 23.4% CONC INJ 38.5 MEQ in STERILE WATER INJ 1,000 ML IV SCH ×2 (01:41→02:08)
[2017-08-31 03:39] LABS: ABG Base Excess 1.3 MMOL/L (-2.5-2.5); ABG HCO3 25.6 MMOL/L (20-26); ABG Oxygen Saturation 99.7 % (95-100); ABG PCO2 37.2 MM HG (35-48); ABG PH 7.441 (7.35-7.45); ABG TCO2 23.4 MMOL/L (23-27); Pt O2 Delivery Device Ventilator
[2017-08-31 04:23] LABS: Basophils % 0.2 % (0.0-0.8); Eosinophils # 0.2 10*3/uL (0.0-0.87); Eosinophils % 3.6 % (0.00-10.9); Hemoglobin 8.3 GM/DL (14.0-18.0); Immature Granulocytes % 0.5 %; Immature Granulocytes Absolute 0.02 #; Lymphocytes # 1.3 10*3/uL (1.4-4.0); Lymphocytes % 30.2 % (21.2-54.2); Mean Corpuscular HGB Conc 31.9 GM/DL (32-36); Mean Corpuscular Hemoglobin 31 PG (27-34); Mean Corpuscular Volume 96.7 FL (87-102); Mean Platelet Volume 12.6 FL (9.6-12.0); Monocytes # 0.3 10*3/uL (0.11-0.8); Monocytes % 6.8 % (1.7-12.7); Neutrophils # 2.6 10*3/uL (1.4-7.4); Neutrophils % 58.7 % (38.7-73.9); Platelet Count 174 T/CUMM (130-400); Red Blood Count 2.69 MC/CUMM (3.8-5.5); Red Cell Distribution Width 18.6 % (9.3-17.3); White Blood Count 4.4 T/CUMM (4-12)
[2017-08-31 04:28] LABS: PT Patient Result 10.9 SECS
[2017-08-31 04:53] LABS: Albumin 1.4 G/DL (3.4-5.0); Bilirubin,Total 0.8 MG/DL (0.2-1.0); Calcium 8.1 MG/DL (8.5-10.1); Osmolality,Calculated 298.3 MOS/KG (273-304); Potassium 3.8 MMOL/L (3.5-5.1); Total Protein 6.1 G/DL (6.4-8.3)
[2017-08-31] MEDS: MEROPENEM 500 MG in SYRINGE 1 EACH IV SCH (06:00)
[2017-08-31] MEDS: LINEZOLID INJ 600 MG in PREMIX 1 EACH IV SCH ×2 (07:34→19:45)
[2017-08-31] MEDS: PROPOFOL 1,000 MG/100 ML BOTTLE IV SCH ×2 (07:35→17:36)
[2017-08-31] MEDS: DEXTROSE 5% 1,000 ML IV SCH ×3 (09:17→22:12)
[2017-08-31] MEDS: GENTAMICIN INJ 120 MG in PREMIX 1 EACH IV SCH ×2 (09:17→21:51)
[2017-08-31] MEDS: levETIRAcetam 500 MG TABLET PEG SCH ×2 (09:17→21:51)
[2017-08-31] MEDS: MUPIROCIN 2% OINT 22 GM TUBE TOP SCH ×2 (09:18→21:52)
[2017-09-01] MEDS: PROPOFOL 1,000 MG/100 ML BOTTLE IV SCH ×3 (03:37→21:29)
[2017-09-01 03:45] LABS: ABG Base Excess 3.7 MMOL/L (-2.5-2.5); ABG HCO3 27.4 MMOL/L (20-26); ABG Oxygen Saturation 98.9 % (95-100); ABG PCO2 37.6 MM HG (35-48); ABG PO2 210.2 MM HG (80-95); ABG TCO2 28.5 MMOL/L (23-27)
[2017-09-01 04:03] LABS: Eosinophils # 0.1 10*3/uL (0.0-0.87); Eosinophils % 2.3 % (0.00-10.9); Hematocrit 25.4 VOL% (42.0-52.0); Hemoglobin 7.9 GM/DL (14.0-18.0); Immature Granulocytes % 0.5 %; Immature Granulocytes Absolute 0.02 #; Lymphocytes # 1.3 10*3/uL (1.4-4.0); Lymphocytes % 31.5 % (21.2-54.2); Mean Corpuscular HGB Conc 31.1 GM/DL (32-36); Mean Corpuscular Hemoglobin 31 PG (27-34); Mean Corpuscular Volume 98.1 FL (87-102); Mean Platelet Volume 12.7 FL (9.6-12.0); Monocytes # 0.3 10*3/uL (0.11-0.8); Monocytes % 7.3 % (1.7-12.7); Neutrophils # 2.3 10*3/uL (1.4-7.4); Neutrophils % 58.4 % (38.7-73.9); Platelet Count 211 T/CUMM (130-400); Red Blood Count 2.59 MC/CUMM (3.8-5.5); Red Cell Distribution Width 17.8 % (9.3-17.3)
[2017-09-01 04:15] LABS: PT Patient Result 10.8 SECS
[2017-09-01] MEDS: DEXTROSE 5% 1,000 ML IV SCH ×3 (04:30→14:11)
[2017-09-01 04:44] LABS: Hypochromasia 1+
[2017-09-01 04:45] LABS: Microcytosis 1+; Platelet Estimate Normal
[2017-09-01 04:46] LABS: Albumin 1.4 G/DL (3.4-5.0); Bilirubin,Total 0.9 MG/DL (0.2-1.0); Calcium 8.1 MG/DL (8.5-10.1); Osmolality,Calculated 298.3 MOS/KG (273-304); Potassium 4.1 MMOL/L (3.5-5.1); Total Protein 5.9 G/DL (6.4-8.3)
[2017-09-01] MEDS: INSULIN REGULAR 100 UNIT/ML SUBCUT SCH ×4 (05:55→18:01)
[2017-09-01] MEDS: LINEZOLID INJ 600 MG in PREMIX 1 EACH IV SCH ×2 (08:04→22:17)
[2017-09-01] MEDS ORDERED: GENTAMICIN INJ 280 MG in SODIUM CHLORIDE 0.9% 100 ML IV SCH (09:00)
[2017-09-01] MEDS: levETIRAcetam 500 MG TABLET PEG SCH ×2 (09:08→22:16)
[2017-09-01] MEDS: MUPIROCIN 2% OINT 22 GM TUBE TOP SCH ×2 (09:09→22:17)
[2017-09-02] MEDS: INSULIN REGULAR 100 UNIT/ML SUBCUT SCH ×4 (01:02→19:30)
[2017-09-02] MEDS: DEXTROSE 5% 1,000 ML IV SCH ×3 (01:03→12:14)
[2017-09-02] MEDS: LINEZOLID INJ 600 MG in PREMIX 1 EACH IV SCH (08:05)
[2017-09-02] MEDS: PROPOFOL 1,000 MG/100 ML BOTTLE IV SCH (09:05)
[2017-09-02] MEDS: MUPIROCIN 2% OINT 22 GM TUBE TOP SCH ×2 (09:30→22:50)
[2017-09-02] MEDS: levETIRAcetam 500 MG TABLET PEG SCH ×2 (09:30→22:00)
[2017-09-02 09:55] LABS: Calcium 8.1 MG/DL (8.5-10.1); Magnesium 1.9 MG/DL (1.8-2.4); Osmolality,Calculated 295.4 MOS/KG (273-304); Prealbumin 19.5 MG/DL (20-40)
[2017-09-02 10:02] LABS: Basophils % 0.2 % (0.0-0.8); Eosinophils # 0.1 10*3/uL (0.0-0.87); Eosinophils % 1.5 % (0.00-10.9); Hematocrit 28.8 VOL% (42.0-52.0); Hemoglobin 8.8 GM/DL (14.0-18.0); Immature Granulocytes % 0.7 %; Immature Granulocytes Absolute 0.03 #; Lymphocytes % 24.8 % (21.2-54.2); Mean Corpuscular HGB Conc 30.6 GM/DL (32-36); Mean Corpuscular Hemoglobin 30 PG (27-34); Mean Platelet Volume 12.4 FL (9.6-12.0); Monocytes # 0.3 10*3/uL (0.11-0.8); Monocytes % 6.7 % (1.7-12.7); NRBC # 0.02 10*3/uL; Neutrophils # 2.7 10*3/uL (1.4-7.4); Neutrophils % 66.1 % (38.7-73.9); Platelet Count 179 T/CUMM (130-400); Red Blood Count 2.94 MC/CUMM (3.8-5.5); Red Cell Distribution Width 18.2 % (9.3-17.3)
[2017-09-02] MEDS: DEXTROSE 5% IV SCH (10:02)
[2017-09-02] MEDS: GENTAMICIN IV SCH (10:02)
[2017-09-02 10:15] LABS: PT Patient Result 10.9 SECS
[2017-09-02 10:24] LABS: ABG Base Excess 3.8 MMOL/L (-2.5-2.5); ABG HCO3 27.8 MMOL/L (20-26); ABG Oxygen Saturation 99.8 % (95-100); ABG PCO2 41.8 MM HG (35-48); ABG PH 7.438 (7.35-7.45); ABG TCO2 26.7 MMOL/L (23-27)
[2017-09-02] MEDS: LINEZOLID 600 MG TABLET PO SCH (22:00)
[2017-09-03] MEDS: PROPOFOL 1,000 MG/100 ML BOTTLE IV SCH ×2 (01:33→09:08)
[2017-09-03] MEDS: INSULIN REGULAR 100 UNIT/ML SUBCUT SCH ×4 (01:37→18:22)
[2017-09-03] MEDS: DEXTROSE 5% 1,000 ML IV SCH ×4 (01:38→18:21)
[2017-09-03 03:34] LABS: Allen Test Positive; Pt O2 Delivery Device Ventilator
[2017-09-03 03:36] LABS: ABG Base Excess 2.9 MMOL/L (-2.5-2.5); ABG Oxygen Saturation 97.4 % (95-100); ABG PCO2 39.9 MM HG (35-48); ABG PH 7.441 (7.35-7.45); ABG PO2 86.8 MM HG (80-95); ABG TCO2 25.5 MMOL/L (23-27)
[2017-09-03 03:52] LABS: Basophils % 0.2 % (0.0-0.8); Eosinophils # 0.1 10*3/uL (0.0-0.87); Eosinophils % 2.5 % (0.00-10.9); Hematocrit 26.9 VOL% (42.0-52.0); Hemoglobin 8.2 GM/DL (14.0-18.0); Immature Granulocytes % 0.4 %; Immature Granulocytes Absolute 0.02 #; Lymphocytes # 1.8 10*3/uL (1.4-4.0); Mean Corpuscular HGB Conc 30.5 GM/DL (32-36); Mean Corpuscular Hemoglobin 31 PG (27-34); Mean Platelet Volume 11.6 FL (9.6-12.0); Monocytes # 0.3 10*3/uL (0.11-0.8); Monocytes % 6.5 % (1.7-12.7); Neutrophils # 2.9 10*3/uL (1.4-7.4); Neutrophils % 55.4 % (38.7-73.9); Platelet Count 267 T/CUMM (130-400); Red Blood Count 2.69 MC/CUMM (3.8-5.5); Red Cell Distribution Width 18.7 % (9.3-17.3); White Blood Count 5.2 T/CUMM (4-12)
[2017-09-03 04:12] LABS: PT Patient Result 10.9 SECS
[2017-09-03 04:20] LABS: Calcium 7.7 MG/DL (8.5-10.1); Magnesium 1.8 MG/DL (1.8-2.4); Osmolality,Calculated 292.1 MOS/KG (273-304); Potassium 4.1 MMOL/L (3.5-5.1)
[2017-09-03] MEDS: levETIRAcetam 500 MG TABLET PEG SCH ×2 (09:26→20:35)
[2017-09-03] MEDS: DEXTROSE 5% IV SCH (09:26)
[2017-09-03] MEDS: LINEZOLID 600 MG TABLET PO SCH ×2 (09:26→20:35)
[2017-09-03] MEDS: GENTAMICIN IV SCH (09:26)
[2017-09-03] MEDS: fentaNYL INJ 1,250 MCG in SODIUM CHLORIDE 0.45% 225 ML IV SCH (09:30)
[2017-09-03] MEDS ORDERED: fentaNYL INJ 1,250 MCG in SODIUM CHLORIDE 0.9% 225 ML IV SCH (09:30)
[2017-09-03] MEDS: MUPIROCIN 2% OINT 22 GM TUBE TOP SCH ×2 (09:37→20:35)
[2017-09-03 12:55] LABS: ABG HCO3 27.1 MMOL/L (20-26); ABG Oxygen Saturation 99.5 % (95-100); ABG PCO2 41.1 MM HG (35-48); ABG PH 7.433 (7.35-7.45); ABG TCO2 25.9 MMOL/L (23-27)
[2017-09-04] MEDS: DEXTROSE 5% 1,000 ML IV SCH ×4 (00:22→21:47)
[2017-09-04] MEDS: INSULIN REGULAR 100 UNIT/ML SUBCUT SCH ×4 (00:22→18:51)
[2017-09-04] MEDS: hydrALAZINE 20 MG/1 ML VIAL IV PRN (02:26)
[2017-09-04] MEDS: fentaNYL INJ 1,250 MCG in SODIUM CHLORIDE 0.45% 225 ML IV SCH ×2 (03:15→15:09)
[2017-09-04] MEDS: ACETAMINOPHEN 325 MG TABLET PO PRN (03:34)
[2017-09-04 03:43] LABS: ABG Base Excess 3.8 MMOL/L (-2.5-2.5); ABG HCO3 27.9 MMOL/L (20-26); ABG Oxygen Saturation 99.4 % (95-100); ABG PCO2 38.6 MM HG (35-48); ABG PH 7.465 (7.35-7.45); ABG TCO2 25.5 MMOL/L (23-27)
[2017-09-04 05:45] LABS: Basophils % 0.3 % (0.0-0.8); Eosinophils # 0.1 10*3/uL (0.0-0.87); Eosinophils % 1.4 % (0.00-10.9); Hematocrit 27.5 VOL% (42.0-52.0); Hemoglobin 8.4 GM/DL (14.0-18.0); Immature Granulocytes Absolute 0.08 #; Lymphocytes # 2.2 10*3/uL (1.4-4.0); Lymphocytes % 27.3 % (21.2-54.2); Mean Corpuscular HGB Conc 30.5 GM/DL (32-36); Mean Corpuscular Hemoglobin 30 PG (27-34); Mean Corpuscular Volume 97.5 FL (87-102); Mean Platelet Volume 10.9 FL (9.6-12.0); Monocytes # 0.4 10*3/uL (0.11-0.8); Monocytes % 4.5 % (1.7-12.7); NRBC # 0.02 10*3/uL; Neutrophils # 5.3 10*3/uL (1.4-7.4); Neutrophils % 65.5 % (38.7-73.9); Platelet Count 325 T/CUMM (130-400); Red Blood Count 2.82 MC/CUMM (3.8-5.5); Red Cell Distribution Width 17.9 % (9.3-17.3)
[2017-09-04 06:13] LABS: Calcium 7.9 MG/DL (8.5-10.1); Magnesium 1.7 MG/DL (1.8-2.4); Osmolality,Calculated 288.3 MOS/KG (273-304); Potassium 4.3 MMOL/L (3.5-5.1)
[2017-09-04 08:20] LABS: ABG Base Excess 4.5 MMOL/L (-2.5-2.5); ABG HCO3 28.5 MMOL/L (20-26); ABG Oxygen Saturation 99.4 % (95-100); ABG PCO2 41.3 MM HG (35-48); ABG PH 7.453 (7.35-7.45); ABG TCO2 26.8 MMOL/L (23-27)
[2017-09-04] MEDS: GENTAMICIN IV SCH (10:16)
[2017-09-04] MEDS: DEXTROSE 5% IV SCH (10:16)
[2017-09-04] MEDS: levETIRAcetam 500 MG TABLET PEG SCH ×2 (10:18→20:31)
[2017-09-04] MEDS: LINEZOLID 600 MG TABLET PO SCH ×2 (10:18→20:31)
[2017-09-04] MEDS: MUPIROCIN 2% OINT 22 GM TUBE TOP SCH ×2 (10:33→21:10)
[2017-09-04] MEDS: PROPOFOL 1,000 MG/100 ML BOTTLE IV SCH (10:33)
[2017-09-05] MEDS: INSULIN REGULAR 100 UNIT/ML SUBCUT SCH ×5 (00:36→23:32)
[2017-09-05] MEDS: fentaNYL INJ 1,250 MCG in SODIUM CHLORIDE 0.45% 225 ML IV SCH ×3 (02:20→23:14)
[2017-09-05 04:46] LABS: Basophils % 0.2 % (0.0-0.8); Eosinophils # 0.2 10*3/uL (0.0-0.87); Eosinophils % 3.4 % (0.00-10.9); Hematocrit 23.3 VOL% (42.0-52.0); Hemoglobin 7.3 GM/DL (14.0-18.0); Immature Granulocytes % 0.4 %; Immature Granulocytes Absolute 0.02 #; Lymphocytes # 1.5 10*3/uL (1.4-4.0); Lymphocytes % 30.7 % (21.2-54.2); Mean Corpuscular HGB Conc 31.3 GM/DL (32-36); Mean Corpuscular Hemoglobin 31 PG (27-34); Mean Corpuscular Volume 98.7 FL (87-102); Mean Platelet Volume 10.7 FL (9.6-12.0); Monocytes # 0.4 10*3/uL (0.11-0.8); Monocytes % 7.2 % (1.7-12.7); Neutrophils # 2.9 10*3/uL (1.4-7.4); Neutrophils % 58.1 % (38.7-73.9); Platelet Count 288 T/CUMM (130-400); Red Blood Count 2.36 MC/CUMM (3.8-5.5); Red Cell Distribution Width 17.9 % (9.3-17.3)
[2017-09-05 05:04] LABS: Calcium 7.9 MG/DL (8.5-10.1); Magnesium 1.9 MG/DL (1.8-2.4); Osmolality,Calculated 286.4 MOS/KG (273-304); Potassium 4.3 MMOL/L (3.5-5.1)
[2017-09-05 07:36] LABS: ABG Base Excess 6.1 MMOL/L (-2.5-2.5); ABG Oxygen Saturation 99.7 % (95-100); ABG PCO2 41.9 MM HG (35-48); ABG PH 7.469 (7.35-7.45); ABG TCO2 28.2 MMOL/L (23-27); Allen Test Positive
[2017-09-05] MEDS: DEXTROSE 5% 1,000 ML IV SCH ×2 (08:29→18:11)
[2017-09-05] MEDS: levETIRAcetam 500 MG TABLET PEG SCH ×2 (08:40→20:41)
[2017-09-05] MEDS: MUPIROCIN 2% OINT 22 GM TUBE TOP SCH ×2 (08:40→20:41)
[2017-09-05] MEDS: LINEZOLID 600 MG TABLET PO SCH ×2 (08:40→20:41)
[2017-09-05] MEDS: PROPOFOL 1,000 MG/100 ML BOTTLE IV SCH (09:00)
[2017-09-05] MEDS: DEXTROSE 5% IV SCH (09:17)
[2017-09-05] MEDS: GENTAMICIN IV SCH (09:17)
[2017-09-05] MEDS ORDERED: SODIUM CHLORIDE 0.9% 1,000 ML IV PRN (10:37)
[2017-09-05] MEDS: CARVEDILOL 6.25 MG TABLET PO SCH ×2 (11:20→20:41)
[2017-09-05 18:51] LABS: Hematocrit 31.9 VOL% (42.0-52.0)
[2017-09-05 18:52] LABS: Hemoglobin 10.2 GM/DL (14.0-18.0)
[2017-09-06 03:15] LABS: ABG Base Excess 5.6 MMOL/L (-2.5-2.5); ABG HCO3 29.5 MMOL/L (20-26); ABG Oxygen Saturation 99.1 % (95-100); ABG PCO2 45.9 MM HG (35-48); ABG PH 7.433 (7.35-7.45); ABG TCO2 28.1 MMOL/L (23-27); Allen Test Positive; Pt O2 Delivery Device Ventilator
[2017-09-06] MEDS: PROPOFOL 1,000 MG/100 ML BOTTLE IV SCH ×2 (03:19→13:24)
[2017-09-06] MEDS: DEXTROSE 5% 1,000 ML IV SCH ×2 (03:54→15:00)
[2017-09-06 04:59] LABS: Basophils % 0.4 % (0.0-0.8); Eosinophils # 0.2 10*3/uL (0.0-0.87); Eosinophils % 3.3 % (0.00-10.9); Hematocrit 29.5 VOL% (42.0-52.0); Hemoglobin 9.5 GM/DL (14.0-18.0); Immature Granulocytes % 0.4 %; Immature Granulocytes Absolute 0.02 #; Lymphocytes # 1.5 10*3/uL (1.4-4.0); Lymphocytes % 26.9 % (21.2-54.2); Mean Corpuscular HGB Conc 32.2 GM/DL (32-36); Mean Corpuscular Hemoglobin 31 PG (27-34); Mean Corpuscular Volume 96.1 FL (87-102); Mean Platelet Volume 11.3 FL (9.6-12.0); Monocytes # 0.4 10*3/uL (0.11-0.8); Neutrophils # 3.4 10*3/uL (1.4-7.4); Platelet Count 187 T/CUMM (130-400); Red Blood Count 3.07 MC/CUMM (3.8-5.5); Red Cell Distribution Width 16.5 % (9.3-17.3); White Blood Count 5.5 T/CUMM (4-12)
[2017-09-06 05:26] LABS: Calcium 8.3 MG/DL (8.5-10.1); Osmolality,Calculated 280.7 MOS/KG (273-304); Potassium 4.2 MMOL/L (3.5-5.1)
[2017-09-06 05:40] LABS: Band Neutrophils 2 % (0-10); Eosinophils 4 % (0-10); Lymphocytes 23 % (20-55); Segmented Neutrophils 66 % (50-85); Total Cells Counted 100
[2017-09-06 05:41] LABS: Hypochromasia 1+; Macrocytosis Slight
[2017-09-06 05:43] LABS: Polychromasia Slight
[2017-09-06] MEDS: INSULIN REGULAR 100 UNIT/ML SUBCUT SCH ×4 (06:08→23:37)
[2017-09-06] MEDS: MUPIROCIN 2% OINT 22 GM TUBE TOP SCH ×2 (08:13→21:06)
[2017-09-06] MEDS: CARVEDILOL 6.25 MG TABLET PO SCH ×2 (08:13→21:05)
[2017-09-06] MEDS: GENTAMICIN IV SCH (08:13)
[2017-09-06] MEDS: levETIRAcetam 500 MG TABLET PEG SCH ×2 (08:13→21:05)
[2017-09-06] MEDS: LINEZOLID 600 MG TABLET PO SCH ×2 (08:13→21:05)
[2017-09-06] MEDS: DEXTROSE 5% IV SCH (08:13)
[2017-09-06] MEDS: fentaNYL INJ 1,250 MCG in SODIUM CHLORIDE 0.45% 225 ML IV SCH ×2 (08:47→20:09)
[2017-09-06] MEDS: hydrALAZINE 20 MG/1 ML VIAL IV PRN (14:10)
[2017-09-06] MEDS: ENOXAPARIN 30 MG/0.3 ML SYRINGE SUBCUT SCH (16:55)
[2017-09-07] MEDS: DEXTROSE 5% 1,000 ML IV SCH (03:30)
[2017-09-07 03:31] LABS: ABG Base Excess 5.2 MMOL/L (-2.5-2.5); ABG HCO3 29.2 MMOL/L (20-26); ABG Oxygen Saturation 98.9 % (95-100); ABG PCO2 46.6 MM HG (35-48); ABG PH 7.423 (7.35-7.45); ABG TCO2 27.6 MMOL/L (23-27); Allen Test Positive; Pt O2 Delivery Device Ventilator
[2017-09-07 03:51] LABS: Basophils % 0.4 % (0.0-0.8); Eosinophils # 0.1 10*3/uL (0.0-0.87); Eosinophils % 2.6 % (0.00-10.9); Hematocrit 34.1 VOL% (42.0-52.0); Hemoglobin 10.7 GM/DL (14.0-18.0); Immature Granulocytes % 0.2 %; Immature Granulocytes Absolute 0.01 #; Lymphocytes # 1.5 10*3/uL (1.4-4.0); Lymphocytes % 27.8 % (21.2-54.2); Mean Corpuscular HGB Conc 31.4 GM/DL (32-36); Mean Corpuscular Hemoglobin 31 PG (27-34); Mean Corpuscular Volume 98.6 FL (87-102); Mean Platelet Volume 10.2 FL (9.6-12.0); Monocytes # 0.6 10*3/uL (0.11-0.8); Monocytes % 10.6 % (1.7-12.7); Neutrophils # 3.2 10*3/uL (1.4-7.4); Neutrophils % 58.4 % (38.7-73.9); Platelet Count 269 T/CUMM (130-400); Red Blood Count 3.46 MC/CUMM (3.8-5.5); Red Cell Distribution Width 16.7 % (9.3-17.3); White Blood Count 5.5 T/CUMM (4-12)
[2017-09-07] MEDS: INSULIN REGULAR 100 UNIT/ML SUBCUT SCH ×3 (07:23→18:34)
[2017-09-07] MEDS: PROPOFOL 1,000 MG/100 ML BOTTLE IV SCH ×2 (07:24→18:28)
[2017-09-07] MEDS: SODIUM CHLOR 0.45% KCL 20 MEQ 20 MEQ/1,000 ML BAG IV SCH (09:23)
[2017-09-07] MEDS: DEXTROSE 5% IV SCH (09:31)
[2017-09-07] MEDS: GENTAMICIN IV SCH (09:31)
[2017-09-07] MEDS: MUPIROCIN 2% OINT 22 GM TUBE TOP SCH ×2 (09:36→21:23)
[2017-09-07] MEDS: levETIRAcetam 500 MG TABLET PEG SCH ×2 (09:37→21:23)
[2017-09-07] MEDS: LINEZOLID 600 MG TABLET PO SCH ×2 (09:37→21:23)
[2017-09-07] MEDS: CARVEDILOL 6.25 MG TABLET PO SCH ×2 (09:37→21:23)
[2017-09-07] MEDS: fentaNYL INJ 1,250 MCG in SODIUM CHLORIDE 0.45% 225 ML IV SCH ×2 (13:49→23:54)
[2017-09-07] MEDS: ENOXAPARIN 30 MG/0.3 ML SYRINGE SUBCUT SCH (16:17)
[2017-09-08 02:48] LABS: ABG Base Excess 6.4 MMOL/L (-2.5-2.5); ABG HCO3 30.2 MMOL/L (20-26); ABG Oxygen Saturation 98.7 % (95-100); ABG PCO2 46.2 MM HG (35-48); ABG TCO2 28.7 MMOL/L (23-27); Allen Test Positive; Pt O2 Delivery Device Ventilator
[2017-09-08 04:42] LABS: Basophils % 0.4 % (0.0-0.8); Eosinophils # 0.1 10*3/uL (0.0-0.87); Eosinophils % 2.8 % (0.00-10.9); Hematocrit 34.3 VOL% (42.0-52.0); Hemoglobin 10.8 GM/DL (14.0-18.0); Immature Granulocytes % 0.6 %; Immature Granulocytes Absolute 0.03 #; Lymphocytes # 1.6 10*3/uL (1.4-4.0); Lymphocytes % 33.3 % (21.2-54.2); Mean Corpuscular HGB Conc 31.5 GM/DL (32-36); Mean Corpuscular Hemoglobin 31 PG (27-34); Mean Corpuscular Volume 98.8 FL (87-102); Mean Platelet Volume 10.3 FL (9.6-12.0); Monocytes # 0.4 10*3/uL (0.11-0.8); Neutrophils # 2.5 10*3/uL (1.4-7.4); Neutrophils % 53.9 % (38.7-73.9); Platelet Count 278 T/CUMM (130-400); Red Blood Count 3.47 MC/CUMM (3.8-5.5); Red Cell Distribution Width 16.6 % (9.3-17.3); White Blood Count 4.7 T/CUMM (4-12)
[2017-09-08 05:03] LABS: Prealbumin 18.9 MG/DL (20-40)
[2017-09-08 05:05] LABS: Albumin 1.6 G/DL (3.4-5.0); Calcium 8.5 MG/DL (8.5-10.1); Osmolality,Calculated 286.5 MOS/KG (273-304); Potassium 4.7 MMOL/L (3.5-5.1)
[2017-09-08] MEDS: SODIUM CHLOR 0.45% KCL 20 MEQ 20 MEQ/1,000 ML BAG IV SCH (05:17)
[2017-09-08] MEDS: INSULIN REGULAR 100 UNIT/ML SUBCUT SCH ×4 (05:58→17:31)
[2017-09-08] MEDS: PROPOFOL 1,000 MG/100 ML BOTTLE IV SCH ×2 (05:59→09:46)
[2017-09-08] MEDS: LINEZOLID 600 MG TABLET PO SCH (08:25)
[2017-09-08] MEDS: CARVEDILOL 6.25 MG TABLET PO SCH ×2 (08:25→21:22)
[2017-09-08] MEDS: levETIRAcetam 500 MG TABLET PEG SCH ×2 (08:25→21:22)
[2017-09-08] MEDS: DEXTROSE 5% IV SCH (08:26)
[2017-09-08] MEDS: GENTAMICIN IV SCH (08:26)
[2017-09-08] MEDS: MUPIROCIN 2% OINT 22 GM TUBE TOP SCH ×2 (08:34→21:22)
[2017-09-08] MEDS: fentaNYL INJ 1,250 MCG in SODIUM CHLORIDE 0.45% 225 ML IV SCH ×2 (10:33→13:04)
[2017-09-08] MEDS: TOBRAMYCIN 80 MG/2 ML VIAL RESP TX SCH ×2 (11:53→19:41)
[2017-09-08] MEDS: ENOXAPARIN 30 MG/0.3 ML SYRINGE SUBCUT SCH (15:34)
[2017-09-09] MEDS: SODIUM CHLOR 0.45% KCL 20 MEQ 20 MEQ/1,000 ML BAG IV SCH ×2 (02:24→20:35)
[2017-09-09] MEDS: INSULIN REGULAR 100 UNIT/ML SUBCUT SCH ×5 (02:26→23:42)
[2017-09-09] MEDS: fentaNYL INJ 1,250 MCG in SODIUM CHLORIDE 0.45% 225 ML IV SCH ×4 (02:28→21:59)
[2017-09-09 04:47] LABS: ABG HCO3 28.9 MMOL/L (20-26); ABG Oxygen Saturation 97.9 % (95-100); ABG PCO2 50.1 MM HG (35-48); ABG PH 7.397 (7.35-7.45); Pt O2 Delivery Device Ventilator
[2017-09-09] MEDS: PROPOFOL 1,000 MG/100 ML BOTTLE IV SCH ×2 (05:56→11:05)
[2017-09-09 06:00] LABS: Basophils % 0.4 % (0.0-0.8); Eosinophils # 0.2 10*3/uL (0.0-0.87); Eosinophils % 2.5 % (0.00-10.9); Hematocrit 30.8 VOL% (42.0-52.0); Hemoglobin 9.8 GM/DL (14.0-18.0); Immature Granulocytes % 0.4 %; Immature Granulocytes Absolute 0.03 #; Lymphocytes # 1.9 10*3/uL (1.4-4.0); Lymphocytes % 23.6 % (21.2-54.2); Mean Corpuscular HGB Conc 31.8 GM/DL (32-36); Mean Corpuscular Hemoglobin 31 PG (27-34); Mean Corpuscular Volume 98.4 FL (87-102); Mean Platelet Volume 9.6 FL (9.6-12.0); Monocytes # 0.6 10*3/uL (0.11-0.8); Monocytes % 7.7 % (1.7-12.7); Neutrophils # 5.3 10*3/uL (1.4-7.4); Neutrophils % 65.4 % (38.7-73.9); Platelet Count 260 T/CUMM (130-400); Red Blood Count 3.13 MC/CUMM (3.8-5.5); Red Cell Distribution Width 16.6 % (9.3-17.3)
[2017-09-09 06:11] LABS: Partial Thromboplastin Time 31.1 SECS (0-40)
[2017-09-09] MEDS: TOBRAMYCIN 80 MG/2 ML VIAL RESP TX SCH ×2 (07:30→19:57)
[2017-09-09] MEDS: levETIRAcetam 500 MG TABLET PEG SCH ×2 (09:06→22:17)
[2017-09-09] MEDS: CARVEDILOL 6.25 MG TABLET PO SCH ×2 (09:06→22:17)
[2017-09-09] MEDS: DEXTROSE 5% IV SCH (09:06)
[2017-09-09] MEDS: GENTAMICIN IV SCH (09:06)
[2017-09-09] MEDS: MUPIROCIN 2% OINT 22 GM TUBE TOP SCH ×2 (10:15→22:17)
[2017-09-09] MEDS: ENOXAPARIN 40 MG/0.4 ML SYRINGE SUBCUT SCH (15:25)
[2017-09-10 04:30] LABS: ABG Base Excess 5.1 MMOL/L (-2.5-2.5); ABG HCO3 29.1 MMOL/L (20-26); ABG Oxygen Saturation 99.7 % (95-100); ABG PCO2 39.4 MM HG (35-48); ABG PH 7.476 (7.35-7.45); ABG TCO2 26.7 MMOL/L (23-27); Allen Test Positive; Pt O2 Delivery Device Ventilator
[2017-09-10] MEDS: INSULIN REGULAR 100 UNIT/ML SUBCUT SCH ×4 (06:19→23:22)
[2017-09-10] MEDS: PROPOFOL 1,000 MG/100 ML BOTTLE IV SCH ×3 (06:24→18:39)
[2017-09-10 06:52] LABS: Basophils % 0.2 % (0.0-0.8); Eosinophils # 0.2 10*3/uL (0.0-0.87); Eosinophils % 4.1 % (0.00-10.9); Hematocrit 29.8 VOL% (42.0-52.0); Hemoglobin 9.4 GM/DL (14.0-18.0); Immature Granulocytes % 0.2 %; Immature Granulocytes Absolute 0.01 #; Lymphocytes # 1.7 10*3/uL (1.4-4.0); Lymphocytes % 29.9 % (21.2-54.2); Mean Corpuscular HGB Conc 31.5 GM/DL (32-36); Mean Corpuscular Hemoglobin 31 PG (27-34); Mean Corpuscular Volume 99.7 FL (87-102); Mean Platelet Volume 10.2 FL (9.6-12.0); Monocytes # 0.6 10*3/uL (0.11-0.8); Monocytes % 9.5 % (1.7-12.7); Neutrophils # 3.3 10*3/uL (1.4-7.4); Neutrophils % 56.1 % (38.7-73.9); Platelet Count 243 T/CUMM (130-400); Red Blood Count 2.99 MC/CUMM (3.8-5.5); Red Cell Distribution Width 16.3 % (9.3-17.3); White Blood Count 5.8 T/CUMM (4-12)
[2017-09-10 07:23] LABS: Calcium 8.2 MG/DL (8.5-10.1); Magnesium 2.1 MG/DL (1.8-2.4); Osmolality,Calculated 285.5 MOS/KG (273-304); Potassium 4.6 MMOL/L (3.5-5.1)
[2017-09-10] MEDS: TOBRAMYCIN 80 MG/2 ML VIAL RESP TX SCH ×2 (07:54→19:17)
[2017-09-10] MEDS: levETIRAcetam 500 MG TABLET PEG SCH ×2 (09:08→20:41)
[2017-09-10] MEDS: DEXTROSE 5% IV SCH (09:09)
[2017-09-10] MEDS: fentaNYL INJ 1,250 MCG in SODIUM CHLORIDE 0.45% 225 ML IV SCH (09:09)
[2017-09-10] MEDS: CARVEDILOL 6.25 MG TABLET PO SCH ×2 (09:09→20:41)
[2017-09-10] MEDS: GENTAMICIN IV SCH (09:09)
[2017-09-10] MEDS: MUPIROCIN 2% OINT 22 GM TUBE TOP SCH ×2 (09:10→20:42)
[2017-09-10] MEDS: ENOXAPARIN 40 MG/0.4 ML SYRINGE SUBCUT SCH (16:15)
[2017-09-10] MEDS: SODIUM CHLOR 0.45% KCL 20 MEQ 20 MEQ/1,000 ML BAG IV SCH (16:15)
[2017-09-11] MEDS: fentaNYL INJ 1,250 MCG in SODIUM CHLORIDE 0.45% 225 ML IV SCH ×3 (04:20→15:47)
[2017-09-11] MEDS: PROPOFOL 1,000 MG/100 ML BOTTLE IV SCH ×3 (04:20→17:23)
[2017-09-11 05:25] LABS: Basophils % 0.4 % (0.0-0.8); Eosinophils # 0.2 10*3/uL (0.0-0.87); Eosinophils % 3.2 % (0.00-10.9); Hematocrit 30.9 VOL% (42.0-52.0); Hemoglobin 9.6 GM/DL (14.0-18.0); Immature Granulocytes % 0.5 %; Immature Granulocytes Absolute 0.03 #; Lymphocytes # 1.7 10*3/uL (1.4-4.0); Lymphocytes % 30.8 % (21.2-54.2); Mean Corpuscular HGB Conc 31.1 GM/DL (32-36); Mean Corpuscular Hemoglobin 31 PG (27-34); Mean Platelet Volume 10.2 FL (9.6-12.0); Monocytes # 0.5 10*3/uL (0.11-0.8); Monocytes % 8.8 % (1.7-12.7); Neutrophils # 3.1 10*3/uL (1.4-7.4); Neutrophils % 56.3 % (38.7-73.9); Platelet Count 214 T/CUMM (130-400); Red Blood Count 3.09 MC/CUMM (3.8-5.5); Red Cell Distribution Width 16.1 % (9.3-17.3); White Blood Count 5.6 T/CUMM (4-12)
[2017-09-11 05:52] LABS: Calcium 8.8 MG/DL (8.5-10.1); Osmolality,Calculated 289.4 MOS/KG (273-304); Potassium 4.3 MMOL/L (3.5-5.1)
[2017-09-11 05:59] LABS: Magnesium 2.1 MG/DL (1.8-2.4); Prealbumin 15.7 MG/DL (20-40)
[2017-09-11] MEDS: INSULIN REGULAR 100 UNIT/ML SUBCUT SCH ×3 (05:59→17:53)
[2017-09-11 06:06] LABS: ABG Base Excess 3.5 MMOL/L (-2.5-2.5); ABG HCO3 27.6 MMOL/L (20-26); ABG Oxygen Saturation 99.4 % (95-100); ABG PCO2 39.4 MM HG (35-48); ABG PH 7.454 (7.35-7.45); ABG TCO2 24.6 MMOL/L (23-27); Allen Test Positive; Pt O2 Delivery Device CPAP
[2017-09-11] MEDS: TOBRAMYCIN 80 MG/2 ML VIAL RESP TX SCH (07:11)
[2017-09-11] MEDS: CARVEDILOL 6.25 MG TABLET PO SCH ×2 (09:37→20:22)
[2017-09-11] MEDS: levETIRAcetam 500 MG TABLET PEG SCH ×2 (09:37→20:22)
[2017-09-11] MEDS: MUPIROCIN 2% OINT 22 GM TUBE TOP SCH ×2 (09:38→20:22)
[2017-09-11] MEDS: methylPREDNISolone SOD SUC 40 MG/1 ML VIAL IV SCH ×2 (09:38→20:23)
[2017-09-11] MEDS: DEXTROSE 5% IV SCH (10:03)
[2017-09-11] MEDS: GENTAMICIN IV SCH (10:03)
[2017-09-11] MEDS ORDERED: AMINOPHYLLINE 250 MG in SODIUM CHLORIDE 0.9% 100 ML IV ONE (11:00)
[2017-09-11] MEDS: SODIUM CHLOR 0.45% KCL 20 MEQ 20 MEQ/1,000 ML BAG IV SCH (12:11)
[2017-09-11] MEDS: ENOXAPARIN 40 MG/0.4 ML SYRINGE SUBCUT SCH (15:09)
[2017-09-11] MEDS: AMINOPHYLLINE 500 MG in SODIUM CHLORIDE 0.9% 480 ML IV SCH (15:49)
[2017-09-12] MEDS: INSULIN REGULAR 100 UNIT/ML SUBCUT SCH ×4 (02:15→17:15)
[2017-09-12 03:20] LABS: ABG Base Excess 2.8 MMOL/L (-2.5-2.5); ABG HCO3 26.9 MMOL/L (20-26); ABG Oxygen Saturation 99.9 % (95-100); ABG PCO2 36.2 MM HG (35-48); ABG TCO2 24.3 MMOL/L (23-27); Allen Test Positive; Pt O2 Delivery Device Ventilator
[2017-09-12] MEDS: PROPOFOL 1,000 MG/100 ML BOTTLE IV SCH ×2 (03:39→17:15)
[2017-09-12 04:03] LABS: Basophils % 0.2 % (0.0-0.8); Hematocrit 32.5 VOL% (42.0-52.0); Hemoglobin 10.3 GM/DL (14.0-18.0); Immature Granulocytes % 0.3 %; Immature Granulocytes Absolute 0.02 #; Lymphocytes # 0.8 10*3/uL (1.4-4.0); Lymphocytes % 13.6 % (21.2-54.2); Mean Corpuscular HGB Conc 31.7 GM/DL (32-36); Mean Corpuscular Hemoglobin 31 PG (27-34); Mean Corpuscular Volume 98.2 FL (87-102); Mean Platelet Volume 9.8 FL (9.6-12.0); Monocytes # 0.1 10*3/uL (0.11-0.8); Monocytes % 1.7 % (1.7-12.7); Neutrophils # 5.1 10*3/uL (1.4-7.4); Neutrophils % 84.2 % (38.7-73.9); Platelet Count 222 T/CUMM (130-400); Red Blood Count 3.31 MC/CUMM (3.8-5.5); Red Cell Distribution Width 15.7 % (9.3-17.3); White Blood Count 6.1 T/CUMM (4-12)
[2017-09-12 04:49] LABS: Calcium 8.5 MG/DL (8.5-10.1); Osmolality,Calculated 289.7 MOS/KG (273-304); Potassium 4.7 MMOL/L (3.5-5.1)
[2017-09-12] MEDS: fentaNYL INJ 1,250 MCG in SODIUM CHLORIDE 0.45% 225 ML IV SCH ×3 (05:11→19:11)
[2017-09-12] MEDS: methylPREDNISolone SOD SUC 40 MG/1 ML VIAL IV SCH ×2 (08:00→20:20)
[2017-09-12] MEDS: SODIUM CHLOR 0.45% KCL 20 MEQ 20 MEQ/1,000 ML BAG IV SCH (08:00)
[2017-09-12] MEDS: MUPIROCIN 2% OINT 22 GM TUBE TOP SCH ×2 (09:30→20:20)
[2017-09-12] MEDS: CARVEDILOL 6.25 MG TABLET PO SCH ×2 (09:30→20:20)
[2017-09-12] MEDS: levETIRAcetam 500 MG TABLET PEG SCH ×2 (09:30→20:20)
[2017-09-12] MEDS: hydrALAZINE 20 MG/1 ML VIAL IV PRN ×2 (11:20→18:05)
[2017-09-12] MEDS: AMINOPHYLLINE 500 MG in SODIUM CHLORIDE 0.9% 480 ML IV SCH (14:50)
[2017-09-12] MEDS: ENOXAPARIN 40 MG/0.4 ML SYRINGE SUBCUT SCH (16:00)
[2017-09-13] MEDS: INSULIN REGULAR 100 UNIT/ML SUBCUT SCH ×5 (00:10→23:24)
[2017-09-13 03:41] LABS: ABG HCO3 26.2 MMOL/L (20-26); ABG Oxygen Saturation 99.9 % (95-100); ABG PCO2 35.1 MM HG (35-48); ABG TCO2 23.7 MMOL/L (23-27); Pt O2 Delivery Device Ventilator
[2017-09-13] MEDS: SODIUM CHLOR 0.45% KCL 20 MEQ 20 MEQ/1,000 ML BAG IV SCH (04:21)
[2017-09-13] MEDS: AMINOPHYLLINE 500 MG in SODIUM CHLORIDE 0.9% 480 ML IV SCH ×2 (04:46→14:50)
[2017-09-13 05:51] LABS: Basophils % 0.1 % (0.0-0.8); Hematocrit 29.3 VOL% (42.0-52.0); Hemoglobin 9.3 GM/DL (14.0-18.0); Immature Granulocytes % 0.5 %; Immature Granulocytes Absolute 0.04 #; Lymphocytes # 1.3 10*3/uL (1.4-4.0); Lymphocytes % 16.2 % (21.2-54.2); Mean Corpuscular HGB Conc 31.7 GM/DL (32-36); Mean Corpuscular Hemoglobin 32 PG (27-34); Mean Corpuscular Volume 99.7 FL (87-102); Mean Platelet Volume 10.7 FL (9.6-12.0); Monocytes # 0.4 10*3/uL (0.11-0.8); Monocytes % 4.8 % (1.7-12.7); Neutrophils # 6.5 10*3/uL (1.4-7.4); Neutrophils % 78.4 % (38.7-73.9); Platelet Count 236 T/CUMM (130-400); Red Blood Count 2.94 MC/CUMM (3.8-5.5); White Blood Count 8.3 T/CUMM (4-12)
[2017-09-13 06:28] LABS: Calcium 8.1 MG/DL (8.5-10.1); Magnesium 2.2 MG/DL (1.8-2.4); Osmolality,Calculated 291.3 MOS/KG (273-304); Potassium 4.4 MMOL/L (3.5-5.1)
[2017-09-13] MEDS: methylPREDNISolone SOD SUC 40 MG/1 ML VIAL IV SCH ×2 (07:50→20:09)
[2017-09-13] MEDS: PROPOFOL 1,000 MG/100 ML BOTTLE IV SCH ×2 (08:30→17:15)
[2017-09-13] MEDS: CARVEDILOL 6.25 MG TABLET PO SCH (08:50)
[2017-09-13] MEDS: levETIRAcetam 500 MG TABLET PEG SCH ×2 (08:50→20:09)
[2017-09-13] MEDS: MUPIROCIN 2% OINT 22 GM TUBE TOP SCH ×2 (09:00→20:13)
[2017-09-13] MEDS: fentaNYL INJ 1,250 MCG in SODIUM CHLORIDE 0.45% 225 ML IV SCH ×2 (09:30→23:54)
[2017-09-13] MEDS: amLODIPine 5 MG TABLET PO SCH (12:30)
[2017-09-13] MEDS: hydrALAZINE 20 MG/1 ML VIAL IV PRN (14:05)
[2017-09-13] MEDS: ENOXAPARIN 40 MG/0.4 ML SYRINGE SUBCUT SCH (16:00)
[2017-09-13] MEDS: CARVEDILOL 12.5 MG TABLET PO SCH (20:09)
[2017-09-14] MEDS: SODIUM CHLOR 0.45% KCL 20 MEQ 20 MEQ/1,000 ML BAG IV SCH ×2 (00:33→20:54)
[2017-09-14] MEDS: hydrALAZINE 20 MG/1 ML VIAL IV PRN (01:10)
[2017-09-14 01:52] LABS: Apearance,Urine CLEAR (Clear); Bacteria,Urine Occasional /HPF (Few); Bilirubin,Urine Negative (Negative); Blood, Urine Small mg/dL (Negative); Glucose,Urine (UA) Negative (Negative); Ketones,Urine Negative (Negative); Mucus,Urine Occasional /LPF (Occasional); Nitrite,Urine Negative (Negative); Protein,Urine Negative; RBC,Urine 6 /HPF (0-4); Squamous Epithelial Cell,Urine Occasional /HPF (0-10); Urine Color Yellow (Yellow); Urine Urobilinogen < 2.0 EU/DL (0.2-1.0); WBC,Urine 2 /HPF (0-6)
[2017-09-14 03:43] LABS: Pt O2 Delivery Device Ventilator
[2017-09-14 03:45] LABS: ABG Base Excess 0.6 MMOL/L (-2.5-2.5); ABG HCO3 24.4 MMOL/L (20-26); ABG Oxygen Saturation 98.8 % (95-100); ABG PCO2 36.1 MM HG (35-48); ABG PH 7.448 (7.35-7.45); ABG PO2 157.8 MM HG (80-95); ABG TCO2 25.5 MMOL/L (23-27)
[2017-09-14 04:05] LABS: Basophils % 0.1 % (0.0-0.8); Hematocrit 28.5 VOL% (42.0-52.0); Hemoglobin 8.9 GM/DL (14.0-18.0); Immature Granulocytes % 1.2 %; Immature Granulocytes Absolute 0.12 #; Lymphocytes # 1.3 10*3/uL (1.4-4.0); Mean Corpuscular HGB Conc 31.2 GM/DL (32-36); Mean Corpuscular Hemoglobin 31 PG (27-34); Mean Corpuscular Volume 99.3 FL (87-102); Mean Platelet Volume 10.4 FL (9.6-12.0); Monocytes # 0.3 10*3/uL (0.11-0.8); Monocytes % 3.4 % (1.7-12.7); Neutrophils # 8.1 10*3/uL (1.4-7.4); Neutrophils % 82.3 % (38.7-73.9); Platelet Count 264 T/CUMM (130-400); Red Blood Count 2.87 MC/CUMM (3.8-5.5); Red Cell Distribution Width 16.2 % (9.3-17.3); White Blood Count 9.8 T/CUMM (4-12)
[2017-09-14 04:31] LABS: Calcium 8.2 MG/DL (8.5-10.1); Magnesium 2.1 MG/DL (1.8-2.4); Osmolality,Calculated 288.4 MOS/KG (273-304); Potassium 4.5 MMOL/L (3.5-5.1)
[2017-09-14] MEDS: PROPOFOL 1,000 MG/100 ML BOTTLE IV SCH ×2 (05:06→20:53)
[2017-09-14] MEDS: AMINOPHYLLINE 500 MG in SODIUM CHLORIDE 0.9% 480 ML IV SCH ×2 (05:07→20:09)
[2017-09-14] MEDS: INSULIN REGULAR 100 UNIT/ML SUBCUT SCH ×3 (05:56→19:40)
[2017-09-14] MEDS: CARVEDILOL 12.5 MG TABLET PO SCH ×2 (09:11→21:54)
[2017-09-14] MEDS: amLODIPine 5 MG TABLET PO SCH (09:11)
[2017-09-14] MEDS: levETIRAcetam 500 MG TABLET PEG SCH ×2 (09:11→21:54)
[2017-09-14] MEDS: methylPREDNISolone SOD SUC 40 MG/1 ML VIAL IV SCH ×2 (09:12→21:54)
[2017-09-14] MEDS: MUPIROCIN 2% OINT 22 GM TUBE TOP SCH ×2 (09:12→21:55)
[2017-09-14] MEDS ORDERED: CHLORHEXIDINE 4% SOLN 118 ML BOTTLE TOP ONE (11:00)
[2017-09-14] MEDS: fentaNYL INJ 1,250 MCG in SODIUM CHLORIDE 0.45% 225 ML IV SCH (13:42)
[2017-09-14] MEDS: SODIUM HYPOCHLORITE 0.25% IRRIG 473 ML BOTTLE TOP SCH (13:43)
[2017-09-14] MEDS: SKIN HEALING OINT (AQUAPHOR) 50 GM TUBE TOP PRN (16:38)
[2017-09-14] MEDS: ENOXAPARIN 40 MG/0.4 ML SYRINGE SUBCUT SCH (16:38)
[2017-09-15] MEDS: INSULIN REGULAR 100 UNIT/ML SUBCUT SCH ×5 (01:52→23:45)
[2017-09-15 03:42] LABS: ABG Base Excess 0.6 MMOL/L (-2.5-2.5); ABG HCO3 24.2 MMOL/L (20-26); ABG Oxygen Saturation 98.8 % (95-100); ABG PCO2 35.2 MM HG (35-48); ABG PH 7.456 (7.35-7.45); ABG PO2 140.7 MM HG (80-95); ABG TCO2 25.3 MMOL/L (23-27); Allen Test Positive; Pt O2 Delivery Device Ventilator
[2017-09-15 05:22] LABS: Hematocrit 31.2 VOL% (42.0-52.0); Hemoglobin 9.9 GM/DL (14.0-18.0); Immature Granulocytes % 0.5 %; Immature Granulocytes Absolute 0.04 #; Lymphocytes % 12.4 % (21.2-54.2); Mean Corpuscular HGB Conc 31.7 GM/DL (32-36); Mean Corpuscular Hemoglobin 32 PG (27-34); Mean Corpuscular Volume 99.4 FL (87-102); Mean Platelet Volume 10.3 FL (9.6-12.0); Monocytes # 0.3 10*3/uL (0.11-0.8); Monocytes % 3.4 % (1.7-12.7); Neutrophils # 6.9 10*3/uL (1.4-7.4); Neutrophils % 83.7 % (38.7-73.9); Platelet Count 275 T/CUMM (130-400); Red Blood Count 3.14 MC/CUMM (3.8-5.5); Red Cell Distribution Width 16.4 % (9.3-17.3); White Blood Count 8.2 T/CUMM (4-12)
[2017-09-15 05:54] LABS: Osmolality,Calculated 284.7 MOS/KG (273-304)
[2017-09-15 06:06] LABS: Magnesium 2.1 MG/DL (1.8-2.4); Prealbumin 27.2 MG/DL (20-40)
[2017-09-15] MEDS: PROPOFOL 1,000 MG/100 ML BOTTLE IV SCH ×2 (06:09→18:16)
[2017-09-15 06:56] LABS: ABG Base Excess 1.2 MMOL/L (-2.5-2.5); ABG HCO3 24.4 MMOL/L (20-26); ABG PCO2 33.1 MM HG (35-48); ABG PH 7.485 (7.35-7.45); ABG PO2 183.8 MM HG (80-95); ABG TCO2 25.4 MMOL/L (23-27)
[2017-09-15] MEDS: methylPREDNISolone SOD SUC 40 MG/1 ML VIAL IV SCH ×2 (08:46→20:51)
[2017-09-15] MEDS: CARVEDILOL 12.5 MG TABLET PO SCH ×2 (08:46→20:50)
[2017-09-15] MEDS: amLODIPine 5 MG TABLET PO SCH (08:46)
[2017-09-15] MEDS: levETIRAcetam 500 MG TABLET PEG SCH ×2 (08:46→20:50)
[2017-09-15] MEDS: MUPIROCIN 2% OINT 22 GM TUBE TOP SCH ×2 (08:47→20:51)
[2017-09-15] MEDS: SODIUM HYPOCHLORITE 0.25% IRRIG 473 ML BOTTLE TOP SCH (08:47)
[2017-09-15] MEDS: fentaNYL INJ 1,250 MCG in SODIUM CHLORIDE 0.45% 225 ML IV SCH (10:24)
[2017-09-15] MEDS: SODIUM CHLORIDE 0.45% 1,000 ML IV SCH (10:27)
[2017-09-15] MEDS: SKIN HEALING OINT (AQUAPHOR) 50 GM TUBE TOP PRN (15:51)
[2017-09-15] MEDS: ENOXAPARIN 40 MG/0.4 ML SYRINGE SUBCUT SCH (16:47)
[2017-09-15] MEDS: AMINOPHYLLINE 500 MG in SODIUM CHLORIDE 0.9% 480 ML IV SCH (19:00)
[2017-09-16] MEDS: AMINOPHYLLINE 500 MG in SODIUM CHLORIDE 0.9% 480 ML IV SCH ×2 (04:00→19:52)
[2017-09-16 04:17] LABS: ABG Base Excess 0.8 MMOL/L (-2.5-2.5); ABG HCO3 24.4 MMOL/L (20-26); ABG Oxygen Saturation 98.8 % (95-100); ABG PCO2 34.8 MM HG (35-48); ABG PH 7.463 (7.35-7.45); ABG PO2 163.3 MM HG (80-95); ABG TCO2 25.4 MMOL/L (23-27)
[2017-09-16] MEDS: INSULIN REGULAR 100 UNIT/ML SUBCUT SCH ×3 (05:50→18:59)
[2017-09-16] MEDS: SODIUM CHLORIDE 0.45% 1,000 ML IV SCH (05:50)
[2017-09-16 05:54] LABS: Calcium 8.2 MG/DL (8.5-10.1); Magnesium 2.2 MG/DL (1.8-2.4); Osmolality,Calculated 283.7 MOS/KG (273-304); Potassium 5.3 MMOL/L (3.5-5.1)
[2017-09-16] MEDS: PROPOFOL 1,000 MG/100 ML BOTTLE IV SCH ×2 (05:56→18:59)
[2017-09-16 07:23] LABS: Basophils % 0.1 % (0.0-0.8); Hematocrit 28.5 VOL% (42.0-52.0); Hemoglobin 9.1 GM/DL (14.0-18.0); Immature Granulocytes % 0.6 %; Immature Granulocytes Absolute 0.05 #; Lymphocytes # 1.7 10*3/uL (1.4-4.0); Mean Corpuscular HGB Conc 31.9 GM/DL (32-36); Mean Corpuscular Hemoglobin 32 PG (27-34); Mean Corpuscular Volume 99.7 FL (87-102); Mean Platelet Volume 9.6 FL (9.6-12.0); Monocytes # 0.6 10*3/uL (0.11-0.8); Monocytes % 8.2 % (1.7-12.7); Neutrophils # 5.4 10*3/uL (1.4-7.4); Neutrophils % 69.1 % (38.7-73.9); Platelet Count 236 T/CUMM (130-400); Red Blood Count 2.86 MC/CUMM (3.8-5.5); Red Cell Distribution Width 16.7 % (9.3-17.3); White Blood Count 7.8 T/CUMM (4-12)
[2017-09-16] MEDS: methylPREDNISolone SOD SUC 40 MG/1 ML VIAL IV SCH ×2 (08:49→20:43)
[2017-09-16] MEDS: levETIRAcetam 500 MG TABLET PEG SCH ×2 (08:50→20:36)
[2017-09-16] MEDS: MUPIROCIN 2% OINT 22 GM TUBE TOP SCH ×2 (08:50→20:37)
[2017-09-16] MEDS: CARVEDILOL 12.5 MG TABLET PO SCH ×2 (08:50→20:36)
[2017-09-16] MEDS: SODIUM HYPOCHLORITE 0.25% IRRIG 473 ML BOTTLE TOP SCH (08:50)
[2017-09-16] MEDS: amLODIPine 5 MG TABLET PO SCH (08:50)
[2017-09-16] MEDS: fentaNYL INJ 1,250 MCG in SODIUM CHLORIDE 0.45% 225 ML IV SCH (10:25)
[2017-09-16] MEDS: CEFEPIME 2,000 MG in SYRINGE 1 EACH IV SCH ×2 (11:25→20:37)
[2017-09-16 14:07] LABS: INR 1.1; PT Patient Result 11.2 SECS; Partial Thromboplastin Time 27.8 SECS (0-40)
[2017-09-17] MEDS: INSULIN REGULAR 100 UNIT/ML SUBCUT SCH ×5 (01:51→23:32)
[2017-09-17] MEDS: SODIUM CHLORIDE 0.45% 1,000 ML IV SCH ×2 (01:51→22:59)
[2017-09-17 02:20] LABS: Basophils % 0.1 % (0.0-0.8); Hematocrit 30.3 VOL% (42.0-52.0); Hemoglobin 9.6 GM/DL (14.0-18.0); Immature Granulocytes % 0.7 %; Immature Granulocytes Absolute 0.06 #; Lymphocytes % 12.2 % (21.2-54.2); Mean Corpuscular HGB Conc 31.7 GM/DL (32-36); Mean Corpuscular Hemoglobin 32 PG (27-34); Mean Corpuscular Volume 100.3 FL (87-102); Monocytes # 0.3 10*3/uL (0.11-0.8); Monocytes % 4.1 % (1.7-12.7); Neutrophils # 6.8 10*3/uL (1.4-7.4); Neutrophils % 82.9 % (38.7-73.9); Platelet Count 255 T/CUMM (130-400); Red Blood Count 3.02 MC/CUMM (3.8-5.5); Red Cell Distribution Width 17.1 % (9.3-17.3); White Blood Count 8.2 T/CUMM (4-12)
[2017-09-17 02:43] LABS: Magnesium 2.1 MG/DL (1.8-2.4); Osmolality,Calculated 286.5 MOS/KG (273-304); Potassium 4.6 MMOL/L (3.5-5.1)
[2017-09-17] MEDS: PROPOFOL 1,000 MG/100 ML BOTTLE IV SCH ×3 (03:32→21:14)
[2017-09-17] MEDS: CEFEPIME 2,000 MG in SYRINGE 1 EACH IV SCH ×3 (04:24→18:00)
[2017-09-17 04:30] LABS: ABG Base Excess 0.9 MMOL/L (-2.5-2.5); ABG HCO3 24.8 MMOL/L (20-26); ABG Oxygen Saturation 98.7 % (95-100); ABG PCO2 36.5 MM HG (35-48); ABG PO2 158.2 MM HG (80-95); ABG TCO2 25.9 MMOL/L (23-27)
[2017-09-17] MEDS: hydrALAZINE 20 MG/1 ML VIAL IV PRN ×2 (05:10→08:30)
[2017-09-17] MEDS: methylPREDNISolone SOD SUC 40 MG/1 ML VIAL IV SCH ×2 (08:30→20:37)
[2017-09-17] MEDS: MUPIROCIN 2% OINT 22 GM TUBE TOP SCH ×2 (09:00→20:37)
[2017-09-17] MEDS: THEOPHYLLINE 5.33 MG/ML 30 ML/BOTTLE PO SCH ×3 (09:00→20:37)
[2017-09-17] MEDS: CARVEDILOL 12.5 MG TABLET PO SCH ×2 (09:00→20:37)
[2017-09-17] MEDS: levETIRAcetam 500 MG TABLET PEG SCH ×2 (09:00→20:37)
[2017-09-17] MEDS: amLODIPine 5 MG TABLET PO SCH (09:00)
[2017-09-17] MEDS ORDERED: MIDAZOLAM 10 MG/2 ML VIAL ONE (09:40)
[2017-09-17 09:41] LABS: Basophils % 0.1 % (0.0-0.8); Eosinophils % 0.1 % (0.00-10.9); Hematocrit 30.8 VOL% (42.0-52.0); Immature Granulocytes % 0.7 %; Immature Granulocytes Absolute 0.06 #; Lymphocytes # 1.8 10*3/uL (1.4-4.0); Lymphocytes % 20.4 % (21.2-54.2); Mean Corpuscular HGB Conc 32.5 GM/DL (32-36); Mean Corpuscular Hemoglobin 32 PG (27-34); Mean Platelet Volume 9.7 FL (9.6-12.0); Monocytes # 0.7 10*3/uL (0.11-0.8); Monocytes % 7.8 % (1.7-12.7); Neutrophils # 6.3 10*3/uL (1.4-7.4); Neutrophils % 70.9 % (38.7-73.9); Platelet Count 236 T/CUMM (130-400); Red Blood Count 3.11 MC/CUMM (3.8-5.5); Red Cell Distribution Width 17.1 % (9.3-17.3); White Blood Count 8.9 T/CUMM (4-12)
[2017-09-17] MEDS ORDERED: LABETALOL 100 MG/20 ML VIAL IV ONE ×3 (10:25→10:45)
[2017-09-17] MEDS ORDERED: VECURONIUM 10 MG VIAL IV ONE ×4 (10:28→10:45)
[2017-09-17] MEDS ORDERED: fentaNYL 100 MCG/2 ML VIAL IV ONE (10:30)
[2017-09-17] MEDS ORDERED: hydrALAZINE 20 MG/1 ML VIAL IV ONE (10:30)
[2017-09-17] MEDS ORDERED: MIDAZOLAM 2 MG/2 ML VIAL IV ONE (10:30)
[2017-09-17] MEDS: fentaNYL INJ 1,250 MCG in SODIUM CHLORIDE 0.45% 225 ML IV SCH (11:00)
[2017-09-17] MEDS ORDERED: LIDOCAINE 2% 20 ML VIAL RESP TX ONE (11:09)
[2017-09-17] MEDS ORDERED: LIDOCAINE 1% 20 ML VIAL MISC INJ ONE (11:09)
[2017-09-17] MEDS: SODIUM HYPOCHLORITE 0.25% IRRIG 473 ML BOTTLE TOP SCH (14:00)
[2017-09-18] MEDS: CEFEPIME 2,000 MG in SYRINGE 1 EACH IV SCH ×3 (02:43→18:30)
[2017-09-18] MEDS: THEOPHYLLINE 5.33 MG/ML 30 ML/BOTTLE PO SCH ×4 (02:47→21:49)
[2017-09-18 03:40] LABS: ABG Base Excess -0.4 MMOL/L (-2.5-2.5); ABG HCO3 24.1 MMOL/L (20-26); ABG PCO2 38.2 MM HG (35-48); ABG PH 7.407 (7.35-7.45); Allen Test Positive; Pt O2 Delivery Device Ventilator
[2017-09-18] MEDS: INSULIN REGULAR 100 UNIT/ML SUBCUT SCH ×3 (05:25→18:15)
[2017-09-18 05:32] LABS: Calcium 7.9 MG/DL (8.5-10.1); Magnesium 1.9 MG/DL (1.8-2.4); Osmolality,Calculated 287.7 MOS/KG (273-304); Potassium 4.1 MMOL/L (3.5-5.1)
[2017-09-18] MEDS: PROPOFOL 1,000 MG/100 ML BOTTLE IV SCH ×2 (07:00→18:00)
[2017-09-18] MEDS: methylPREDNISolone SOD SUC 40 MG/1 ML VIAL IV SCH ×2 (07:45→21:47)
[2017-09-18] MEDS: amLODIPine 5 MG TABLET PO SCH (08:40)
[2017-09-18] MEDS: CARVEDILOL 12.5 MG TABLET PO SCH ×2 (08:40→21:49)
[2017-09-18] MEDS: MUPIROCIN 2% OINT 22 GM TUBE TOP SCH ×2 (08:40→21:49)
[2017-09-18] MEDS: levETIRAcetam 500 MG TABLET PEG SCH ×2 (08:40→21:49)
[2017-09-18] MEDS: fentaNYL INJ 1,250 MCG in SODIUM CHLORIDE 0.45% 225 ML IV SCH (10:00)
[2017-09-18] MEDS: SODIUM HYPOCHLORITE 0.25% IRRIG 473 ML BOTTLE TOP SCH (13:30)
[2017-09-18] MEDS: SODIUM CHLORIDE 0.45% 1,000 ML IV SCH (19:00)
[2017-09-18] MEDS: hydrALAZINE 20 MG/1 ML VIAL IV PRN (20:50)
[2017-09-19] MEDS: INSULIN REGULAR 100 UNIT/ML SUBCUT SCH ×5 (00:29→23:55)
[2017-09-19] MEDS: fentaNYL INJ 1,250 MCG in SODIUM CHLORIDE 0.45% 225 ML IV SCH (01:22)
[2017-09-19 03:16] LABS: ABG Base Excess 1.8 MMOL/L (-2.5-2.5); ABG Oxygen Saturation 99.7 % (95-100); ABG PCO2 37.1 MM HG (35-48); ABG PH 7.449 (7.35-7.45); ABG TCO2 23.6 MMOL/L (23-27)
[2017-09-19] MEDS: THEOPHYLLINE 5.33 MG/ML 30 ML/BOTTLE PO SCH ×4 (03:36→20:21)
[2017-09-19] MEDS: CEFEPIME 2,000 MG in SYRINGE 1 EACH IV SCH ×3 (03:36→18:20)
[2017-09-19] MEDS: PROPOFOL 1,000 MG/100 ML BOTTLE IV SCH ×2 (04:51→13:14)
[2017-09-19 06:30] LABS: Hematocrit 29.7 VOL% (42.0-52.0); Hemoglobin 9.5 GM/DL (14.0-18.0); Immature Granulocytes % 0.6 %; Immature Granulocytes Absolute 0.06 #; Lymphocytes % 9.3 % (21.2-54.2); Mean Corpuscular Hemoglobin 32 PG (27-34); Mean Corpuscular Volume 100.3 FL (87-102); Mean Platelet Volume 10.3 FL (9.6-12.0); Monocytes # 0.6 10*3/uL (0.11-0.8); Monocytes % 5.5 % (1.7-12.7); NRBC # 0.02 10*3/uL; Neutrophils # 8.8 10*3/uL (1.4-7.4); Neutrophils % 84.6 % (38.7-73.9); Platelet Count 252 T/CUMM (130-400); Red Blood Count 2.96 MC/CUMM (3.8-5.5); Red Cell Distribution Width 18.1 % (9.3-17.3); White Blood Count 10.4 T/CUMM (4-12)
[2017-09-19 06:48] LABS: Calcium 8.1 MG/DL (8.5-10.1); Magnesium 2.1 MG/DL (1.8-2.4); Osmolality,Calculated 290.4 MOS/KG (273-304); Potassium 4.1 MMOL/L (3.5-5.1)
[2017-09-19 06:51] LABS: Prealbumin 30.7 MG/DL (20-40)
[2017-09-19] MEDS: methylPREDNISolone SOD SUC 40 MG/1 ML VIAL IV SCH ×2 (09:35→20:17)
[2017-09-19] MEDS: levETIRAcetam 500 MG TABLET PEG SCH ×2 (09:36→20:16)
[2017-09-19] MEDS: amLODIPine 5 MG TABLET PO SCH ×2 (09:36→20:17)
[2017-09-19] MEDS: MUPIROCIN 2% OINT 22 GM TUBE TOP SCH ×2 (09:36→20:17)
[2017-09-19] MEDS: CARVEDILOL 12.5 MG TABLET PO SCH ×2 (09:36→20:16)
[2017-09-19] MEDS: hydrALAZINE 20 MG/1 ML VIAL IV PRN (12:21)
[2017-09-19] MEDS: SODIUM CHLORIDE 0.45% 1,000 ML IV SCH (14:12)
[2017-09-19] MEDS: SODIUM HYPOCHLORITE 0.25% IRRIG 473 ML BOTTLE TOP SCH (14:30)
[2017-09-19] MEDS: ACETAMINOPHEN 325 MG TABLET PO PRN (14:34)
[2017-09-19] MEDS: METOPROLOL TARTRATE 5 MG/5 ML VIAL IV PRN (17:05)
[2017-09-20] MEDS: PROPOFOL 1,000 MG/100 ML BOTTLE IV SCH ×2 (00:52→08:34)
[2017-09-20 02:29] LABS: ABG Base Excess 1.4 MMOL/L (-2.5-2.5); ABG HCO3 24.6 MMOL/L (20-26); ABG Oxygen Saturation 98.6 % (95-100); ABG PCO2 33.7 MM HG (35-48); ABG PH 7.481 (7.35-7.45); ABG PO2 142.6 MM HG (80-95); ABG TCO2 25.6 MMOL/L (23-27); Allen Test Positive; Pt O2 Delivery Device Ventilator
[2017-09-20] MEDS: THEOPHYLLINE 5.33 MG/ML 30 ML/BOTTLE PO SCH ×4 (03:41→20:09)
[2017-09-20] MEDS: CEFEPIME 2,000 MG in SYRINGE 1 EACH IV SCH ×3 (03:44→18:00)
[2017-09-20] MEDS: INSULIN REGULAR 100 UNIT/ML SUBCUT SCH ×3 (05:44→17:45)
[2017-09-20 06:22] LABS: Basophils % 0.1 % (0.0-0.8); Hematocrit 29.1 VOL% (42.0-52.0); Hemoglobin 9.5 GM/DL (14.0-18.0); Immature Granulocytes % 0.6 %; Immature Granulocytes Absolute 0.08 #; Lymphocytes # 1.3 10*3/uL (1.4-4.0); Lymphocytes % 9.8 % (21.2-54.2); Mean Corpuscular HGB Conc 32.6 GM/DL (32-36); Mean Corpuscular Hemoglobin 33 PG (27-34); Mean Platelet Volume 10.2 FL (9.6-12.0); Monocytes # 0.8 10*3/uL (0.11-0.8); Monocytes % 5.9 % (1.7-12.7); Neutrophils # 10.7 10*3/uL (1.4-7.4); Neutrophils % 83.6 % (38.7-73.9); Platelet Count 300 T/CUMM (130-400); Red Blood Count 2.91 MC/CUMM (3.8-5.5); Red Cell Distribution Width 18.6 % (9.3-17.3); White Blood Count 12.8 T/CUMM (4-12)
[2017-09-20 06:32] LABS: Calcium 8.4 MG/DL (8.5-10.1); Calcium 8.6 MG/DL (8.5-10.1); Magnesium 2.2 MG/DL (1.8-2.4); Osmolality,Calculated 286.7 MOS/KG (273-304); Osmolality,Calculated 287.5 MOS/KG (273-304); Potassium 3.6 MMOL/L (3.5-5.1); Potassium 3.7 MMOL/L (3.5-5.1)
[2017-09-20] MEDS: levETIRAcetam 500 MG TABLET PEG SCH ×2 (08:25→20:08)
[2017-09-20] MEDS: CARVEDILOL 12.5 MG TABLET PO SCH ×2 (08:25→20:08)
[2017-09-20] MEDS: amLODIPine 5 MG TABLET PO SCH ×2 (08:25→20:08)
[2017-09-20] MEDS: methylPREDNISolone SOD SUC 40 MG/1 ML VIAL IV SCH ×2 (08:25→20:09)
[2017-09-20] MEDS: SODIUM CHLORIDE 0.45% 1,000 ML IV SCH (08:30)
[2017-09-20] MEDS: MUPIROCIN 2% OINT 22 GM TUBE TOP SCH ×2 (08:34→20:08)
[2017-09-20] MEDS: PANTOPRAZOLE 40 MG TABLET PO SCH (12:20)
[2017-09-20] MEDS: hydrALAZINE 20 MG/1 ML VIAL IV PRN (12:21)
[2017-09-20] MEDS: SODIUM HYPOCHLORITE 0.25% IRRIG 473 ML BOTTLE TOP SCH (12:30)
[2017-09-20] MEDS: METOPROLOL TARTRATE 5 MG/5 ML VIAL IV PRN (16:50)
[2017-09-21] MEDS: INSULIN REGULAR 100 UNIT/ML SUBCUT SCH ×4 (01:37→18:31)
[2017-09-21] MEDS: CEFEPIME 2,000 MG in SYRINGE 1 EACH IV SCH ×3 (03:25→18:00)
[2017-09-21] MEDS: THEOPHYLLINE 5.33 MG/ML 30 ML/BOTTLE PO SCH ×4 (03:25→20:37)
[2017-09-21] MEDS: SODIUM CHLORIDE 0.45% 1,000 ML IV SCH ×2 (03:42→06:28)
[2017-09-21 03:43] LABS: ABG Base Excess 1.3 MMOL/L (-2.5-2.5); ABG HCO3 25.6 MMOL/L (20-26); ABG PCO2 27.5 MM HG (35-48); ABG PH 7.526 (7.35-7.45); ABG TCO2 19.6 MMOL/L (23-27); Allen Test Positive; Pt O2 Delivery Device Ventilator
[2017-09-21 05:45] LABS: Hematocrit 32.6 VOL% (42.0-52.0); Hemoglobin 10.2 GM/DL (14.0-18.0); Immature Granulocytes % 0.4 %; Immature Granulocytes Absolute 0.05 #; Lymphocytes # 1.8 10*3/uL (1.4-4.0); Mean Corpuscular HGB Conc 31.3 GM/DL (32-36); Mean Corpuscular Hemoglobin 32 PG (27-34); Mean Corpuscular Volume 102.2 FL (87-102); Mean Platelet Volume 11.2 FL (9.6-12.0); Monocytes # 0.8 10*3/uL (0.11-0.8); Monocytes % 7.1 % (1.7-12.7); Neutrophils # 8.8 10*3/uL (1.4-7.4); Neutrophils % 76.5 % (38.7-73.9); Platelet Count 194 T/CUMM (130-400); Red Blood Count 3.19 MC/CUMM (3.8-5.5); Red Cell Distribution Width 18.7 % (9.3-17.3); White Blood Count 11.4 T/CUMM (4-12)
[2017-09-21 06:00] LABS: Calcium 8.5 MG/DL (8.5-10.1); Potassium 4.3 MMOL/L (3.5-5.1)
[2017-09-21] MEDS: methylPREDNISolone SOD SUC 40 MG/1 ML VIAL IV SCH ×2 (08:44→20:27)
[2017-09-21] MEDS: PROPOFOL 1,000 MG/100 ML BOTTLE IV SCH (08:45)
[2017-09-21] MEDS: MUPIROCIN 2% OINT 22 GM TUBE TOP SCH ×2 (08:45→20:31)
[2017-09-21] MEDS: levETIRAcetam 500 MG TABLET PEG SCH ×2 (08:45→20:27)
[2017-09-21] MEDS: PANTOPRAZOLE 40 MG TABLET PO SCH (08:45)
[2017-09-21] MEDS: CARVEDILOL 12.5 MG TABLET PO SCH ×2 (08:45→20:29)
[2017-09-21] MEDS: amLODIPine 5 MG TABLET PO SCH ×2 (08:45→20:28)
[2017-09-21] MEDS: SODIUM HYPOCHLORITE 0.25% IRRIG 473 ML BOTTLE TOP SCH (09:00)
[2017-09-21] MEDS: hydroCHLOROthiazide 12.5 MG CAPSULE PO SCH (09:24)
[2017-09-21] MEDS ORDERED: PHENYLEPHRINE DRIP 40 MG/250 ML PREMIX IV ONE (11:51)
[2017-09-21] MEDS ORDERED: DOBUTamine 500 MG/250 ML PREMIX IV ONE (11:51)
[2017-09-21] MEDS: hydrALAZINE 20 MG/1 ML VIAL IV PRN (16:31)
[2017-09-22] MEDS: INSULIN REGULAR 100 UNIT/ML SUBCUT SCH ×4 (00:10→18:19)
[2017-09-22] MEDS: SODIUM CHLORIDE 0.45% 1,000 ML IV SCH ×4 (00:11→23:55)
[2017-09-22] MEDS: THEOPHYLLINE 5.33 MG/ML 30 ML/BOTTLE PO SCH ×4 (03:05→20:45)
[2017-09-22] MEDS: CEFEPIME 2,000 MG in SYRINGE 1 EACH IV SCH ×3 (03:09→18:20)
[2017-09-22 04:05] LABS: ABG Base Excess 1.9 MMOL/L (-2.5-2.5); ABG HCO3 26.2 MMOL/L (20-26); ABG Oxygen Saturation 99.7 % (95-100); ABG PCO2 35.6 MM HG (35-48); ABG PH 7.463 (7.35-7.45); ABG TCO2 22.9 MMOL/L (23-27); Allen Test Positive
[2017-09-22 06:15] LABS: Basophils % 0.1 % (0.0-0.8); Hematocrit 38.2 VOL% (42.0-52.0); Hemoglobin 12.1 GM/DL (14.0-18.0); Immature Granulocytes % 0.4 %; Immature Granulocytes Absolute 0.05 #; Lymphocytes # 1.6 10*3/uL (1.4-4.0); Mean Corpuscular HGB Conc 31.7 GM/DL (32-36); Mean Corpuscular Hemoglobin 32 PG (27-34); Mean Corpuscular Volume 100.8 FL (87-102); Monocytes # 0.6 10*3/uL (0.11-0.8); Monocytes % 4.8 % (1.7-12.7); Neutrophils # 9.5 10*3/uL (1.4-7.4); Neutrophils % 80.7 % (38.7-73.9); Platelet Count 274 T/CUMM (130-400); Red Blood Count 3.79 MC/CUMM (3.8-5.5); Red Cell Distribution Width 18.8 % (9.3-17.3); White Blood Count 11.7 T/CUMM (4-12)
[2017-09-22 06:54] LABS: Calcium 8.9 MG/DL (8.5-10.1); Osmolality,Calculated 273.4 MOS/KG (273-304); Potassium 4.8 MMOL/L (3.5-5.1)
[2017-09-22] MEDS: methylPREDNISolone SOD SUC 40 MG/1 ML VIAL IV SCH ×2 (08:11→20:34)
[2017-09-22] MEDS: MUPIROCIN 2% OINT 22 GM TUBE TOP SCH ×2 (08:12→20:35)
[2017-09-22] MEDS: CARVEDILOL 12.5 MG TABLET PO SCH ×2 (08:12→20:35)
[2017-09-22] MEDS: hydroCHLOROthiazide 12.5 MG CAPSULE PO SCH (08:12)
[2017-09-22] MEDS: SODIUM HYPOCHLORITE 0.25% IRRIG 473 ML BOTTLE TOP SCH (08:12)
[2017-09-22] MEDS: amLODIPine 5 MG TABLET PO SCH ×2 (08:12→20:35)
[2017-09-22] MEDS: PANTOPRAZOLE 40 MG TABLET PO SCH (08:12)
[2017-09-22] MEDS: levETIRAcetam 500 MG TABLET PEG SCH ×2 (08:12→20:35)
[2017-09-22 08:13] LABS: Prealbumin 32.9 MG/DL (20-40)
[2017-09-22] MEDS: PROPOFOL 1,000 MG/100 ML BOTTLE IV SCH (08:13)
[2017-09-22] MEDS: LISINOPRIL 20 MG TABLET PO SCH ×2 (10:19→20:35)
[2017-09-23] MEDS: INSULIN REGULAR 100 UNIT/ML SUBCUT SCH ×4 (00:30→17:51)
[2017-09-23 03:21] LABS: ABG Base Excess 1.2 MMOL/L (-2.5-2.5); ABG HCO3 25.4 MMOL/L (20-26); ABG Oxygen Saturation 96.7 % (95-100); ABG PCO2 34.3 MM HG (35-48); ABG PH 7.463 (7.35-7.45); ABG PO2 79.3 MM HG (80-95); ABG TCO2 21.9 MMOL/L (23-27)
[2017-09-23] MEDS: THEOPHYLLINE 5.33 MG/ML 30 ML/BOTTLE PO SCH ×4 (04:03→22:36)
[2017-09-23] MEDS: CEFEPIME 2,000 MG in SYRINGE 1 EACH IV SCH ×2 (04:03→11:00)
[2017-09-23 07:48] LABS: Basophils % 0.1 % (0.0-0.8); Hematocrit 33.5 VOL% (42.0-52.0); Hemoglobin 11.2 GM/DL (14.0-18.0); Immature Granulocytes % 0.5 %; Immature Granulocytes Absolute 0.07 #; Lymphocytes # 1.6 10*3/uL (1.4-4.0); Lymphocytes % 12.7 % (21.2-54.2); Mean Corpuscular HGB Conc 33.4 GM/DL (32-36); Mean Corpuscular Hemoglobin 33 PG (27-34); Mean Platelet Volume 9.9 FL (9.6-12.0); Monocytes # 0.7 10*3/uL (0.11-0.8); Monocytes % 5.8 % (1.7-12.7); Neutrophils # 10.4 10*3/uL (1.4-7.4); Neutrophils % 80.9 % (38.7-73.9); Platelet Count 296 T/CUMM (130-400); Red Blood Count 3.42 MC/CUMM (3.8-5.5); Red Cell Distribution Width 18.7 % (9.3-17.3); White Blood Count 12.8 T/CUMM (4-12)
[2017-09-23 08:25] LABS: Calcium 8.3 MG/DL (8.5-10.1); Osmolality,Calculated 279.2 MOS/KG (273-304); Potassium 3.9 MMOL/L (3.5-5.1)
[2017-09-23] MEDS: PANTOPRAZOLE 40 MG TABLET PO SCH (09:10)
[2017-09-23] MEDS: LISINOPRIL 20 MG TABLET PO SCH ×2 (09:10→22:40)
[2017-09-23] MEDS: amLODIPine 5 MG TABLET PO SCH ×2 (09:10→22:40)
[2017-09-23] MEDS: levETIRAcetam 500 MG TABLET PEG SCH ×2 (09:10→22:40)
[2017-09-23] MEDS: CARVEDILOL 12.5 MG TABLET PO SCH ×2 (09:10→22:40)
[2017-09-23] MEDS: methylPREDNISolone SOD SUC 40 MG/1 ML VIAL IV SCH ×2 (09:11→22:35)
[2017-09-23] MEDS: hydrALAZINE 20 MG/1 ML VIAL IV PRN (09:11)
[2017-09-23] MEDS: hydroCHLOROthiazide 12.5 MG CAPSULE PO SCH (09:17)
[2017-09-23] MEDS: MUPIROCIN 2% OINT 22 GM TUBE TOP SCH ×2 (09:18→22:40)
[2017-09-23] MEDS: SODIUM HYPOCHLORITE 0.25% IRRIG 473 ML BOTTLE TOP SCH (14:27)
[2017-09-23] MEDS: BACLOFEN 10 MG TABLET PEG SCH ×2 (14:28→16:58)
[2017-09-24] MEDS: INSULIN REGULAR 100 UNIT/ML SUBCUT SCH ×4 (02:11→18:42)
[2017-09-24 03:30] LABS: ABG HCO3 24.1 MMOL/L (20-26); ABG PCO2 33.4 MM HG (35-48); ABG PH 7.476 (7.35-7.45); ABG PO2 142.8 MM HG (80-95); ABG TCO2 25.1 MMOL/L (23-27); Allen Test Positive
[2017-09-24] MEDS: THEOPHYLLINE 5.33 MG/ML 30 ML/BOTTLE PO SCH ×4 (04:06→21:33)
[2017-09-24] MEDS: methylPREDNISolone SOD SUC 40 MG/1 ML VIAL IV SCH ×2 (09:23→21:34)
[2017-09-24] MEDS: BACLOFEN 10 MG TABLET PEG SCH ×3 (09:24→18:30)
[2017-09-24] MEDS: hydroCHLOROthiazide 12.5 MG CAPSULE PO SCH (09:24)
[2017-09-24] MEDS: LISINOPRIL 20 MG TABLET PO SCH ×2 (09:24→21:35)
[2017-09-24] MEDS: PANTOPRAZOLE 40 MG TABLET PO SCH (09:25)
[2017-09-24] MEDS: levETIRAcetam 500 MG TABLET PEG SCH ×2 (09:25→21:34)
[2017-09-24] MEDS: amLODIPine 5 MG TABLET PO SCH ×2 (09:25→21:34)
[2017-09-24] MEDS: CARVEDILOL 12.5 MG TABLET PO SCH ×2 (09:25→21:34)
[2017-09-24] MEDS: SODIUM HYPOCHLORITE 0.25% IRRIG 473 ML BOTTLE TOP SCH (09:27)
[2017-09-24] MEDS: MUPIROCIN 2% OINT 22 GM TUBE TOP SCH ×2 (09:28→21:35)
[2017-09-25] MEDS: INSULIN REGULAR 100 UNIT/ML SUBCUT SCH ×5 (01:56→23:48)
[2017-09-25] MEDS: THEOPHYLLINE 5.33 MG/ML 30 ML/BOTTLE PO SCH ×4 (03:53→22:12)
[2017-09-25 06:06] LABS: Basophils % 0.1 % (0.0-0.8); Hematocrit 34.6 VOL% (42.0-52.0); Hemoglobin 11.6 GM/DL (14.0-18.0); Immature Granulocytes % 0.4 %; Immature Granulocytes Absolute 0.05 #; Lymphocytes # 1.2 10*3/uL (1.4-4.0); Lymphocytes % 10.2 % (21.2-54.2); Mean Corpuscular HGB Conc 33.5 GM/DL (32-36); Mean Corpuscular Hemoglobin 33 PG (27-34); Mean Corpuscular Volume 97.7 FL (87-102); Mean Platelet Volume 10.4 FL (9.6-12.0); Monocytes # 0.4 10*3/uL (0.11-0.8); Monocytes % 3.6 % (1.7-12.7); Neutrophils # 9.7 10*3/uL (1.4-7.4); Neutrophils % 85.7 % (38.7-73.9); Platelet Count 185 T/CUMM (130-400); Red Blood Count 3.54 MC/CUMM (3.8-5.5); Red Cell Distribution Width 18.4 % (9.3-17.3); White Blood Count 11.3 T/CUMM (4-12)
[2017-09-25 06:39] LABS: Calcium 8.6 MG/DL (8.5-10.1); Osmolality,Calculated 285.2 MOS/KG (273-304); Potassium 4.2 MMOL/L (3.5-5.1)
[2017-09-25] MEDS: ACETYLCYSTEINE 20% 800 MG/4 ML VIAL RESP TX SCH ×3 (09:20→19:39)
[2017-09-25] MEDS: methylPREDNISolone SOD SUC 40 MG/1 ML VIAL IV SCH ×2 (09:31→22:09)
[2017-09-25] MEDS: hydroCHLOROthiazide 12.5 MG CAPSULE PO SCH (09:31)
[2017-09-25] MEDS: CARVEDILOL 12.5 MG TABLET PO SCH ×2 (09:31→22:11)
[2017-09-25] MEDS: BACLOFEN 10 MG TABLET PEG SCH ×3 (09:31→18:45)
[2017-09-25] MEDS: amLODIPine 5 MG TABLET PO SCH ×2 (09:31→22:10)
[2017-09-25] MEDS: PANTOPRAZOLE 40 MG TABLET PO SCH (09:31)
[2017-09-25] MEDS: LISINOPRIL 20 MG TABLET PO SCH ×2 (09:31→22:10)
[2017-09-25] MEDS: MUPIROCIN 2% OINT 22 GM TUBE TOP SCH ×2 (09:39→22:12)
[2017-09-25] MEDS: SODIUM HYPOCHLORITE 0.25% IRRIG 473 ML BOTTLE TOP SCH (09:39)
[2017-09-25] MEDS: levETIRAcetam LIQUID 100 MG/ML 30 ML/BOTTLE PER TUBE SCH ×2 (09:39→22:11)
[2017-09-26] MEDS: ACETYLCYSTEINE 20% 800 MG/4 ML VIAL RESP TX SCH ×4 (00:59→20:31)
[2017-09-26] MEDS: THEOPHYLLINE 5.33 MG/ML 30 ML/BOTTLE PO SCH ×4 (03:08→22:52)
[2017-09-26 05:43] LABS: Hematocrit 35.7 VOL% (42.0-52.0); Hemoglobin 11.6 GM/DL (14.0-18.0); Immature Granulocytes % 0.5 %; Immature Granulocytes Absolute 0.06 #; Lymphocytes # 1.1 10*3/uL (1.4-4.0); Lymphocytes % 8.5 % (21.2-54.2); Mean Corpuscular HGB Conc 32.5 GM/DL (32-36); Mean Corpuscular Hemoglobin 33 PG (27-34); Mean Corpuscular Volume 100.6 FL (87-102); Mean Platelet Volume 10.6 FL (9.6-12.0); Monocytes # 0.2 10*3/uL (0.11-0.8); Monocytes % 1.5 % (1.7-12.7); Neutrophils # 11.1 10*3/uL (1.4-7.4); Neutrophils % 89.5 % (38.7-73.9); Platelet Count 233 T/CUMM (130-400); Red Blood Count 3.55 MC/CUMM (3.8-5.5); Red Cell Distribution Width 18.4 % (9.3-17.3); White Blood Count 12.4 T/CUMM (4-12)
[2017-09-26] MEDS: INSULIN REGULAR 100 UNIT/ML SUBCUT SCH ×3 (06:05→19:20)
[2017-09-26 06:21] LABS: Albumin 2.4 G/DL (3.4-5.0); Bilirubin,Total 0.9 MG/DL (0.2-1.0); Magnesium 2.5 MG/DL (1.8-2.4); Osmolality,Calculated 289.1 MOS/KG (273-304); Potassium 4.3 MMOL/L (3.5-5.1); Total Protein 7.6 G/DL (6.4-8.3)
[2017-09-26] MEDS: CARVEDILOL 12.5 MG TABLET PO SCH ×2 (12:01→22:53)
[2017-09-26] MEDS: hydroCHLOROthiazide 12.5 MG CAPSULE PO SCH (12:02)
[2017-09-26] MEDS: BACLOFEN 10 MG TABLET PEG SCH ×3 (12:02→19:14)
[2017-09-26] MEDS: PANTOPRAZOLE 40 MG TABLET PO SCH ×2 (12:03→12:40)
[2017-09-26] MEDS: LISINOPRIL 20 MG TABLET PO SCH ×2 (12:03→22:53)
[2017-09-26] MEDS: levETIRAcetam LIQUID 100 MG/ML 30 ML/BOTTLE PER TUBE SCH ×2 (12:03→23:17)
[2017-09-26] MEDS: amLODIPine 5 MG TABLET PO SCH ×2 (12:03→22:53)
[2017-09-26] MEDS: MUPIROCIN 2% OINT 22 GM TUBE TOP SCH ×2 (12:19→22:52)
[2017-09-26] MEDS: SODIUM HYPOCHLORITE 0.25% IRRIG 473 ML BOTTLE TOP SCH (12:21)
[2017-09-26] MEDS: methylPREDNISolone SOD SUC 40 MG/1 ML VIAL IV SCH ×2 (12:26→22:45)
[2017-09-26] MEDS: LANSOPRAZOLE ODT 30 MG TABLET PO SCH (12:50)
[2017-09-27] MEDS: INSULIN REGULAR 100 UNIT/ML SUBCUT SCH ×4 (00:29→18:30)
[2017-09-27] MEDS: ACETYLCYSTEINE 20% 800 MG/4 ML VIAL RESP TX SCH ×4 (00:48→21:40)
[2017-09-27 03:20] LABS: Basophils % 0.1 % (0.0-0.8); Hematocrit 34.1 VOL% (42.0-52.0); Hemoglobin 11.2 GM/DL (14.0-18.0); Immature Granulocytes % 0.6 %; Immature Granulocytes Absolute 0.06 #; Lymphocytes # 0.8 10*3/uL (1.4-4.0); Lymphocytes % 7.8 % (21.2-54.2); Mean Corpuscular HGB Conc 32.8 GM/DL (32-36); Mean Corpuscular Hemoglobin 32 PG (27-34); Mean Corpuscular Volume 98.3 FL (87-102); Mean Platelet Volume 10.5 FL (9.6-12.0); Monocytes # 0.2 10*3/uL (0.11-0.8); Monocytes % 1.9 % (1.7-12.7); Neutrophils # 9.2 10*3/uL (1.4-7.4); Neutrophils % 89.6 % (38.7-73.9); Platelet Count 242 T/CUMM (130-400); Red Blood Count 3.47 MC/CUMM (3.8-5.5); Red Cell Distribution Width 17.9 % (9.3-17.3); White Blood Count 10.2 T/CUMM (4-12)
[2017-09-27] MEDS: THEOPHYLLINE 5.33 MG/ML 30 ML/BOTTLE PO SCH ×4 (03:45→21:33)
[2017-09-27 03:54] LABS: Calcium 8.7 MG/DL (8.5-10.1); Potassium 4.4 MMOL/L (3.5-5.1)
[2017-09-27] MEDS: SODIUM HYPOCHLORITE 0.25% IRRIG 473 ML BOTTLE TOP SCH (08:05)
[2017-09-27] MEDS: amLODIPine 5 MG TABLET PO SCH ×2 (11:30→21:32)
[2017-09-27] MEDS: levETIRAcetam LIQUID 100 MG/ML 30 ML/BOTTLE PER TUBE SCH ×2 (11:30→21:33)
[2017-09-27] MEDS: hydroCHLOROthiazide 12.5 MG CAPSULE PO SCH (11:30)
[2017-09-27] MEDS: LISINOPRIL 20 MG TABLET PO SCH ×2 (11:30→21:31)
[2017-09-27] MEDS: MUPIROCIN 2% OINT 22 GM TUBE TOP SCH ×2 (11:33→21:33)
[2017-09-27] MEDS: CARVEDILOL 12.5 MG TABLET PO SCH ×2 (11:33→21:32)
[2017-09-27] MEDS: LANSOPRAZOLE ODT 30 MG TABLET PO SCH (11:33)
[2017-09-27] MEDS: methylPREDNISolone SOD SUC 40 MG/1 ML VIAL IV SCH ×2 (11:34→21:27)
[2017-09-27] MEDS: BACLOFEN 10 MG TABLET PEG SCH ×3 (11:34→18:30)
[2017-09-27] MEDS ORDERED: ACETYLCYSTEINE 20% 6,000 MG/30 ML VIAL ONE (19:23)
[2017-09-28] MEDS ORDERED: ACETYLCYSTEINE 20% 6,000 MG/30 ML VIAL ONE (00:11)
[2017-09-28] MEDS: ACETYLCYSTEINE 20% 800 MG/4 ML VIAL RESP TX SCH ×4 (00:20→18:45)
[2017-09-28] MEDS: INSULIN REGULAR 100 UNIT/ML SUBCUT SCH ×4 (01:36→18:30)
[2017-09-28] MEDS: THEOPHYLLINE 5.33 MG/ML 30 ML/BOTTLE PO SCH ×4 (03:13→21:40)
[2017-09-28 05:28] LABS: Hematocrit 35.2 VOL% (42.0-52.0); Hemoglobin 11.4 GM/DL (14.0-18.0); Immature Granulocytes % 0.4 %; Immature Granulocytes Absolute 0.04 #; Lymphocytes # 0.8 10*3/uL (1.4-4.0); Lymphocytes % 7.9 % (21.2-54.2); Mean Corpuscular HGB Conc 32.4 GM/DL (32-36); Mean Corpuscular Hemoglobin 33 PG (27-34); Mean Corpuscular Volume 100.3 FL (87-102); Mean Platelet Volume 10.7 FL (9.6-12.0); Monocytes # 0.2 10*3/uL (0.11-0.8); Monocytes % 2.1 % (1.7-12.7); Neutrophils # 9.3 10*3/uL (1.4-7.4); Neutrophils % 89.6 % (38.7-73.9); Platelet Count 212 T/CUMM (130-400); Red Blood Count 3.51 MC/CUMM (3.8-5.5); Red Cell Distribution Width 18.1 % (9.3-17.3); White Blood Count 10.4 T/CUMM (4-12)
[2017-09-28 05:34] LABS: Albumin 2.3 G/DL (3.4-5.0); Bilirubin,Total 0.7 MG/DL (0.2-1.0); Calcium 8.6 MG/DL (8.5-10.1); Osmolality,Calculated 299.5 MOS/KG (273-304); Potassium 4.5 MMOL/L (3.5-5.1); Total Protein 7.1 G/DL (6.4-8.3)
[2017-09-28] MEDS: levETIRAcetam LIQUID 100 MG/ML 30 ML/BOTTLE PER TUBE SCH ×2 (10:28→21:40)
[2017-09-28] MEDS: methylPREDNISolone SOD SUC 40 MG/1 ML VIAL IV SCH ×2 (10:29→21:34)
[2017-09-28] MEDS: BACLOFEN 10 MG TABLET PEG SCH ×3 (10:30→18:30)
[2017-09-28] MEDS: amLODIPine 5 MG TABLET PO SCH ×2 (10:30→21:39)
[2017-09-28] MEDS: CARVEDILOL 12.5 MG TABLET PO SCH ×2 (10:31→21:37)
[2017-09-28] MEDS: hydroCHLOROthiazide 12.5 MG CAPSULE PO SCH (10:31)
[2017-09-28] MEDS: LISINOPRIL 20 MG TABLET PO SCH ×2 (10:31→21:37)
[2017-09-28] MEDS: LANSOPRAZOLE ODT 30 MG TABLET PO SCH (10:32)
[2017-09-28] MEDS: MUPIROCIN 2% OINT 22 GM TUBE TOP SCH ×2 (10:32→21:48)
[2017-09-28] MEDS: SODIUM HYPOCHLORITE 0.25% IRRIG 473 ML BOTTLE TOP SCH (10:32)
[2017-09-28] MEDS: ACETAMINOPHEN 325 MG TABLET PO PRN (21:39)
[2017-09-29] MEDS: ACETYLCYSTEINE 20% 800 MG/4 ML VIAL RESP TX SCH ×4 (00:23→20:25)
[2017-09-29] MEDS: INSULIN REGULAR 100 UNIT/ML SUBCUT SCH ×4 (00:34→18:13)
[2017-09-29] MEDS: THEOPHYLLINE 5.33 MG/ML 30 ML/BOTTLE PO SCH ×4 (03:45→22:17)
[2017-09-29] MEDS: ACETAMINOPHEN 325 MG TABLET PO PRN ×3 (04:35→22:16)
[2017-09-29 06:46] LABS: Apearance,Urine CLEAR (Clear); Bilirubin,Urine Negative (Negative); Blood, Urine Negative (Negative); Glucose,Urine (UA) 50 mg/dL (Negative); Ketones,Urine Negative (Negative); Mucus,Urine Occasional /LPF (Occasional); Nitrite,Urine Negative (Negative); Protein,Urine Negative; RBC,Urine <1 /HPF (0-4); Urine Color Yellow (Yellow); Urine Specific Gravity 1.012 (1.001-1.035); Urine Urobilinogen < 2.0 EU/DL (0.2-1.0); WBC,Urine 1 /HPF (0-6)
[2017-09-29] MEDS ORDERED: SODIUM CHLORIDE 0.9% 500 ML IV ONE (06:58)
[2017-09-29] MEDS: levETIRAcetam LIQUID 100 MG/ML 30 ML/BOTTLE PER TUBE SCH ×2 (10:37→22:18)
[2017-09-29] MEDS: methylPREDNISolone SOD SUC 40 MG/1 ML VIAL IV SCH ×2 (10:37→22:18)
[2017-09-29] MEDS: LANSOPRAZOLE ODT 30 MG TABLET PO SCH (10:38)
[2017-09-29] MEDS: CARVEDILOL 12.5 MG TABLET PO SCH ×2 (10:38→22:17)
[2017-09-29] MEDS: BACLOFEN 10 MG TABLET PEG SCH ×3 (10:38→17:18)
[2017-09-29] MEDS: hydroCHLOROthiazide 12.5 MG CAPSULE PO SCH (10:38)
[2017-09-29] MEDS: amLODIPine 5 MG TABLET PO SCH ×2 (10:38→22:17)
[2017-09-29] MEDS: LISINOPRIL 20 MG TABLET PO SCH ×2 (10:39→22:17)
[2017-09-29] MEDS: SODIUM HYPOCHLORITE 0.25% IRRIG 473 ML BOTTLE TOP SCH (10:39)
[2017-09-29] MEDS: MUPIROCIN 2% OINT 22 GM TUBE TOP SCH ×2 (10:39→22:18)
[2017-09-29 12:02] LABS: Hematocrit 34.4 VOL% (42.0-52.0); Immature Granulocytes % 0.4 %; Immature Granulocytes Absolute 0.04 #; Lymphocytes # 0.7 10*3/uL (1.4-4.0); Lymphocytes % 7.5 % (21.2-54.2); Mean Corpuscular Hemoglobin 33 PG (27-34); Mean Corpuscular Volume 101.8 FL (87-102); Mean Platelet Volume 10.8 FL (9.6-12.0); Monocytes # 0.4 10*3/uL (0.11-0.8); Monocytes % 4.5 % (1.7-12.7); Neutrophils # 8.3 10*3/uL (1.4-7.4); Neutrophils % 87.6 % (38.7-73.9); Platelet Count 160 T/CUMM (130-400); Red Blood Count 3.38 MC/CUMM (3.8-5.5); Red Cell Distribution Width 18.2 % (9.3-17.3); White Blood Count 9.5 T/CUMM (4-12)
[2017-09-29] MEDS: VANCOMYCIN INJ 750 MG in SODIUM CHLORIDE 0.9% 150 ML IV SCH (15:27)
[2017-09-29] MEDS: MEROPENEM 1,000 MG in SYRINGE 1 EACH IV SCH ×2 (15:27→23:00)
[2017-09-30] MEDS: ACETYLCYSTEINE 20% 800 MG/4 ML VIAL RESP TX SCH ×4 (00:30→19:18)
[2017-09-30] MEDS: INSULIN REGULAR 100 UNIT/ML SUBCUT SCH ×4 (00:45→17:29)
[2017-09-30] MEDS: VANCOMYCIN INJ 750 MG in SODIUM CHLORIDE 0.9% 150 ML IV SCH ×2 (03:00→16:13)
[2017-09-30] MEDS: THEOPHYLLINE 5.33 MG/ML 30 ML/BOTTLE PO SCH ×4 (03:00→21:55)
[2017-09-30] MEDS: MEROPENEM 1,000 MG in SYRINGE 1 EACH IV SCH ×2 (06:00→16:13)
[2017-09-30] MEDS: BACLOFEN 10 MG TABLET PEG SCH ×3 (10:00→16:13)
[2017-09-30] MEDS: methylPREDNISolone SOD SUC 40 MG/1 ML VIAL IV SCH ×2 (10:00→21:55)
[2017-09-30] MEDS: LANSOPRAZOLE ODT 30 MG TABLET PO SCH (10:00)
[2017-09-30] MEDS: levETIRAcetam LIQUID 100 MG/ML 30 ML/BOTTLE PER TUBE SCH ×2 (10:00→21:54)
[2017-09-30] MEDS: CARVEDILOL 12.5 MG TABLET PO SCH ×2 (10:00→21:53)
[2017-09-30] MEDS: MUPIROCIN 2% OINT 22 GM TUBE TOP SCH ×2 (10:01→21:54)
[2017-09-30] MEDS: SODIUM HYPOCHLORITE 0.25% IRRIG 473 ML BOTTLE TOP SCH (10:01)
[2017-09-30] MEDS: amLODIPine 5 MG TABLET PO SCH ×2 (10:02→21:54)
[2017-09-30] MEDS: LISINOPRIL 20 MG TABLET PO SCH ×2 (10:02→21:54)
[2017-09-30] MEDS: hydroCHLOROthiazide 12.5 MG CAPSULE PO SCH (10:02)
[2017-10-01] MEDS: MEROPENEM 1,000 MG in SYRINGE 1 EACH IV SCH ×2 (03:09→11:30)
[2017-10-01] MEDS: THEOPHYLLINE 5.33 MG/ML 30 ML/BOTTLE PO SCH ×4 (03:10→21:37)
[2017-10-01] MEDS: INSULIN REGULAR 100 UNIT/ML SUBCUT SCH ×4 (03:10→18:46)
[2017-10-01] MEDS: VANCOMYCIN INJ 750 MG in SODIUM CHLORIDE 0.9% 150 ML IV SCH (03:14)
[2017-10-01 06:37] LABS: Hematocrit 32.6 VOL% (42.0-52.0); Hemoglobin 10.3 GM/DL (14.0-18.0); Immature Granulocytes % 0.4 %; Immature Granulocytes Absolute 0.04 #; Lymphocytes # 0.8 10*3/uL (1.4-4.0); Mean Corpuscular HGB Conc 31.6 GM/DL (32-36); Mean Corpuscular Hemoglobin 33 PG (27-34); Mean Corpuscular Volume 102.8 FL (87-102); Mean Platelet Volume 11.6 FL (9.6-12.0); Monocytes # 0.2 10*3/uL (0.11-0.8); Monocytes % 1.5 % (1.7-12.7); Neutrophils # 10.2 10*3/uL (1.4-7.4); Neutrophils % 91.1 % (38.7-73.9); Platelet Count 147 T/CUMM (130-400); Red Blood Count 3.17 MC/CUMM (3.8-5.5); Red Cell Distribution Width 17.9 % (9.3-17.3); White Blood Count 11.2 T/CUMM (4-12)
[2017-10-01 07:02] LABS: Calcium 8.8 MG/DL (8.5-10.1); Osmolality,Calculated 303.1 MOS/KG (273-304); Potassium 4.6 MMOL/L (3.5-5.1)
[2017-10-01 07:03] LABS: Hypochromasia 1+; Lymphocytes 4 % (20-55); Segmented Neutrophils 93 % (50-85); Total Cells Counted 100
[2017-10-01 07:05] LABS: Macrocytosis Slight
[2017-10-01] MEDS: MUPIROCIN 2% OINT 22 GM TUBE TOP SCH ×2 (07:55→21:47)
[2017-10-01] MEDS: SODIUM HYPOCHLORITE 0.25% IRRIG 473 ML BOTTLE TOP SCH (08:00)
[2017-10-01] MEDS: ACETYLCYSTEINE 20% 800 MG/4 ML VIAL RESP TX SCH ×4 (08:10→20:09)
[2017-10-01] MEDS: SKIN HEALING OINT (AQUAPHOR) 50 GM TUBE TOP PRN (08:35)
[2017-10-01] MEDS: CARVEDILOL 12.5 MG TABLET PO SCH ×2 (11:32→21:37)
[2017-10-01] MEDS: BACLOFEN 10 MG TABLET PEG SCH ×3 (11:32→16:47)
[2017-10-01] MEDS: hydroCHLOROthiazide 12.5 MG CAPSULE PO SCH (11:32)
[2017-10-01] MEDS: LANSOPRAZOLE ODT 30 MG TABLET PO SCH (11:32)
[2017-10-01] MEDS: LISINOPRIL 20 MG TABLET PO SCH ×2 (11:32→21:37)
[2017-10-01] MEDS: amLODIPine 5 MG TABLET PO SCH ×2 (11:32→21:37)
[2017-10-01] MEDS: levETIRAcetam LIQUID 100 MG/ML 30 ML/BOTTLE PER TUBE SCH ×2 (11:35→21:33)
[2017-10-01] MEDS: methylPREDNISolone SOD SUC 40 MG/1 ML VIAL IV SCH ×2 (11:40→21:44)
[2017-10-01] MEDS: LEVOFLOXACIN 750 MG TABLET PEG SCH (13:34)
[2017-10-01] MEDS: CEFEPIME 1,000 MG in SYRINGE 1 EACH IV SCH ×2 (14:16→21:27)
[2017-10-02] MEDS: INSULIN REGULAR 100 UNIT/ML SUBCUT SCH ×4 (01:16→19:14)
[2017-10-02] MEDS: ACETYLCYSTEINE 20% 800 MG/4 ML VIAL RESP TX SCH ×4 (01:21→21:00)
[2017-10-02] MEDS: THEOPHYLLINE 5.33 MG/ML 30 ML/BOTTLE PO SCH ×4 (03:47→23:21)
[2017-10-02] MEDS: CEFEPIME 1,000 MG in SYRINGE 1 EACH IV SCH ×3 (05:55→21:30)
[2017-10-02 09:35] LABS: Calcium 8.9 MG/DL (8.5-10.1); Magnesium 2.4 MG/DL (1.8-2.4); Osmolality,Calculated 304.3 MOS/KG (273-304); Potassium 4.2 MMOL/L (3.5-5.1); Prealbumin 23.6 MG/DL (20-40)
[2017-10-02] MEDS: methylPREDNISolone SOD SUC 40 MG/1 ML VIAL IV SCH ×2 (09:48→21:25)
[2017-10-02] MEDS: MUPIROCIN 2% OINT 22 GM TUBE TOP SCH ×2 (09:49→23:22)
[2017-10-02] MEDS: SKIN HEALING OINT (AQUAPHOR) 50 GM TUBE TOP PRN (09:49)
[2017-10-02] MEDS: BACLOFEN 10 MG TABLET PEG SCH ×3 (09:50→16:24)
[2017-10-02] MEDS: CARVEDILOL 12.5 MG TABLET PO SCH ×2 (09:50→23:21)
[2017-10-02] MEDS: amLODIPine 5 MG TABLET PO SCH ×2 (09:51→23:21)
[2017-10-02] MEDS: LANSOPRAZOLE ODT 30 MG TABLET PO SCH (09:51)
[2017-10-02] MEDS: levETIRAcetam LIQUID 100 MG/ML 30 ML/BOTTLE PER TUBE SCH ×2 (09:51→23:21)
[2017-10-02] MEDS: LEVOFLOXACIN 750 MG TABLET PEG SCH (09:51)
[2017-10-02] MEDS: hydroCHLOROthiazide 12.5 MG CAPSULE PO SCH (09:51)
[2017-10-02] MEDS: LISINOPRIL 20 MG TABLET PO SCH ×2 (09:51→23:20)
[2017-10-02] MEDS: SODIUM HYPOCHLORITE 0.25% IRRIG 473 ML BOTTLE TOP SCH (09:51)
[2017-10-03] MEDS: ACETAMINOPHEN 325 MG TABLET PO PRN (00:24)
[2017-10-03] MEDS: INSULIN REGULAR 100 UNIT/ML SUBCUT SCH ×5 (00:24→23:44)
[2017-10-03] MEDS: ACETYLCYSTEINE 20% 800 MG/4 ML VIAL RESP TX SCH ×4 (01:00→19:02)
[2017-10-03] MEDS: THEOPHYLLINE 5.33 MG/ML 30 ML/BOTTLE PO SCH ×4 (03:51→20:53)
[2017-10-03] MEDS: CEFEPIME 1,000 MG in SYRINGE 1 EACH IV SCH ×3 (05:12→20:59)
[2017-10-03 06:43] LABS: Basophils % 0.1 % (0.0-0.8); Hematocrit 33.4 VOL% (42.0-52.0); Hemoglobin 10.8 GM/DL (14.0-18.0); Immature Granulocytes % 0.5 %; Immature Granulocytes Absolute 0.04 #; Lymphocytes # 0.7 10*3/uL (1.4-4.0); Lymphocytes % 9.7 % (21.2-54.2); Mean Corpuscular HGB Conc 32.3 GM/DL (32-36); Mean Corpuscular Hemoglobin 33 PG (27-34); Mean Corpuscular Volume 102.5 FL (87-102); Monocytes # 0.1 10*3/uL (0.11-0.8); Monocytes % 1.5 % (1.7-12.7); Neutrophils # 6.6 10*3/uL (1.4-7.4); Neutrophils % 88.2 % (38.7-73.9); Platelet Count 139 T/CUMM (130-400); Red Blood Count 3.26 MC/CUMM (3.8-5.5); Red Cell Distribution Width 17.5 % (9.3-17.3); White Blood Count 7.4 T/CUMM (4-12)
[2017-10-03 07:19] LABS: Calcium 8.5 MG/DL (8.5-10.1); Potassium 4.3 MMOL/L (3.5-5.1)
[2017-10-03] MEDS: methylPREDNISolone SOD SUC 40 MG/1 ML VIAL IV SCH ×2 (10:32→20:54)
[2017-10-03] MEDS: CARVEDILOL 12.5 MG TABLET PO SCH ×2 (10:33→20:54)
[2017-10-03] MEDS: hydroCHLOROthiazide 12.5 MG CAPSULE PO SCH (10:33)
[2017-10-03] MEDS: LISINOPRIL 20 MG TABLET PO SCH ×2 (10:33→20:54)
[2017-10-03] MEDS: LEVOFLOXACIN 750 MG TABLET PEG SCH (10:34)
[2017-10-03] MEDS: levETIRAcetam LIQUID 100 MG/ML 30 ML/BOTTLE PER TUBE SCH ×2 (10:35→20:53)
[2017-10-03] MEDS: SODIUM HYPOCHLORITE 0.25% IRRIG 473 ML BOTTLE TOP SCH (10:36)
[2017-10-03] MEDS: MUPIROCIN 2% OINT 22 GM TUBE TOP SCH ×2 (10:36→21:03)
[2017-10-03] MEDS: LANSOPRAZOLE ODT 30 MG TABLET PO SCH (10:44)
[2017-10-03] MEDS: BACLOFEN 10 MG TABLET PEG SCH ×3 (10:44→18:33)
[2017-10-03] MEDS: amLODIPine 5 MG TABLET PO SCH ×2 (10:44→20:54)
[2017-10-04] MEDS: ACETYLCYSTEINE 20% 800 MG/4 ML VIAL RESP TX SCH ×4 (00:17→19:26)
[2017-10-04] MEDS: THEOPHYLLINE 5.33 MG/ML 30 ML/BOTTLE PO SCH ×4 (02:37→20:23)
[2017-10-04] MEDS: CEFEPIME 1,000 MG in SYRINGE 1 EACH IV SCH (05:02)
[2017-10-04] MEDS: INSULIN REGULAR 100 UNIT/ML SUBCUT SCH ×3 (06:33→18:05)
[2017-10-04] MEDS: CARVEDILOL 12.5 MG TABLET PO SCH ×2 (11:35→20:21)
[2017-10-04] MEDS: BACLOFEN 10 MG TABLET PEG SCH ×3 (11:35→18:05)
[2017-10-04] MEDS: methylPREDNISolone SOD SUC 40 MG/1 ML VIAL IV SCH ×2 (11:35→20:21)
[2017-10-04] MEDS: levETIRAcetam LIQUID 100 MG/ML 30 ML/BOTTLE PER TUBE SCH ×2 (11:36→20:23)
[2017-10-04] MEDS: hydroCHLOROthiazide 12.5 MG CAPSULE PO SCH (11:36)
[2017-10-04] MEDS: amLODIPine 5 MG TABLET PO SCH ×2 (11:36→20:21)
[2017-10-04] MEDS: LANSOPRAZOLE ODT 30 MG TABLET PO SCH (11:36)
[2017-10-04] MEDS: LISINOPRIL 20 MG TABLET PO SCH ×2 (11:36→20:21)
[2017-10-04] MEDS: SODIUM HYPOCHLORITE 0.25% IRRIG 473 ML BOTTLE TOP SCH (11:37)
[2017-10-04] MEDS: MUPIROCIN 2% OINT 22 GM TUBE TOP SCH ×2 (11:37→20:26)
[2017-10-04] MEDS: MEROPENEM 1,000 MG in SYRINGE 1 EACH IV SCH ×2 (13:06→22:54)
[2017-10-04] MEDS: ACETAMINOPHEN 325 MG TABLET PO PRN (15:53)
[2017-10-05] MEDS: ACETYLCYSTEINE 20% 800 MG/4 ML VIAL RESP TX SCH ×4 (00:31→19:18)
[2017-10-05] MEDS: INSULIN REGULAR 100 UNIT/ML SUBCUT SCH ×4 (00:48→19:32)
[2017-10-05] MEDS: THEOPHYLLINE 5.33 MG/ML 30 ML/BOTTLE PO SCH ×4 (02:49→22:48)
[2017-10-05 05:20] LABS: Calcium 8.8 MG/DL (8.5-10.1); Magnesium 2.7 MG/DL (1.8-2.4); Osmolality,Calculated 326.7 MOS/KG (273-304); Potassium 3.9 MMOL/L (3.5-5.1)
[2017-10-05 06:15] LABS: Hematocrit 32.5 VOL% (42.0-52.0); Hemoglobin 10.6 GM/DL (14.0-18.0); Immature Granulocytes % 0.6 %; Immature Granulocytes Absolute 0.05 #; Lymphocytes # 0.5 10*3/uL (1.4-4.0); Lymphocytes % 6.9 % (21.2-54.2); Mean Corpuscular HGB Conc 32.6 GM/DL (32-36); Mean Corpuscular Hemoglobin 33 PG (27-34); Mean Corpuscular Volume 100.3 FL (87-102); Mean Platelet Volume 12.5 FL (9.6-12.0); Monocytes # 0.1 10*3/uL (0.11-0.8); Monocytes % 1.3 % (1.7-12.7); Neutrophils % 91.2 % (38.7-73.9); Platelet Count 156 T/CUMM (130-400); Red Blood Count 3.24 MC/CUMM (3.8-5.5); Red Cell Distribution Width 17.9 % (9.3-17.3); White Blood Count 7.7 T/CUMM (4-12)
[2017-10-05 07:36] LABS: Atypical Lymphocytes Few; Band Neutrophils 1 % (0-10); Hypochromasia 1+; Lymphocytes 8 % (20-55); Platelet Estimate Adequate; Segmented Neutrophils 87 % (50-85); Total Cells Counted 100
[2017-10-05] MEDS: SODIUM HYPOCHLORITE 0.25% IRRIG 473 ML BOTTLE TOP SCH (10:42)
[2017-10-05] MEDS: MUPIROCIN 2% OINT 22 GM TUBE TOP SCH ×2 (10:42→22:48)
[2017-10-05] MEDS: levETIRAcetam LIQUID 100 MG/ML 30 ML/BOTTLE PER TUBE SCH ×2 (10:43→22:48)
[2017-10-05] MEDS: methylPREDNISolone SOD SUC 40 MG/1 ML VIAL IV SCH ×2 (10:43→22:46)
[2017-10-05] MEDS: CARVEDILOL 12.5 MG TABLET PO SCH ×2 (10:44→22:46)
[2017-10-05] MEDS: BACLOFEN 10 MG TABLET PEG SCH ×3 (10:44→16:30)
[2017-10-05] MEDS: hydroCHLOROthiazide 12.5 MG CAPSULE PO SCH (10:44)
[2017-10-05] MEDS: LISINOPRIL 20 MG TABLET PO SCH ×2 (10:44→22:45)
[2017-10-05] MEDS: LANSOPRAZOLE ODT 30 MG TABLET PO SCH (10:44)
[2017-10-05] MEDS: amLODIPine 5 MG TABLET PO SCH ×2 (10:44→22:45)
[2017-10-05] MEDS: MEROPENEM 1,000 MG in SYRINGE 1 EACH IV SCH ×2 (12:02→22:47)
[2017-10-05] MEDS ORDERED: FUROSEMIDE 40 MG/4 ML VIAL ONE (18:46)
[2017-10-06] MEDS: ACETYLCYSTEINE 20% 800 MG/4 ML VIAL RESP TX SCH ×4 (00:48→20:56)
[2017-10-06] MEDS: INSULIN REGULAR 100 UNIT/ML SUBCUT SCH ×5 (01:26→18:00)
[2017-10-06] MEDS: THEOPHYLLINE 5.33 MG/ML 30 ML/BOTTLE PO SCH ×4 (06:46→23:25)
[2017-10-06 07:42] LABS: Prealbumin 24.3 MG/DL (20-40)
[2017-10-06] MEDS: MUPIROCIN 2% OINT 22 GM TUBE TOP SCH ×2 (08:20→23:03)
[2017-10-06] MEDS: hydroCHLOROthiazide 12.5 MG CAPSULE PO SCH (08:21)
[2017-10-06] MEDS: BACLOFEN 10 MG TABLET PEG SCH ×3 (08:21→17:48)
[2017-10-06] MEDS: LANSOPRAZOLE ODT 30 MG TABLET PO SCH (08:21)
[2017-10-06] MEDS: methylPREDNISolone SOD SUC 40 MG/1 ML VIAL IV SCH ×2 (08:21→21:45)
[2017-10-06] MEDS: amLODIPine 5 MG TABLET PO SCH ×2 (08:21→23:26)
[2017-10-06] MEDS: SODIUM HYPOCHLORITE 0.25% IRRIG 473 ML BOTTLE TOP SCH (08:22)
[2017-10-06] MEDS: levETIRAcetam LIQUID 100 MG/ML 30 ML/BOTTLE PER TUBE SCH ×2 (08:22→23:25)
[2017-10-06] MEDS: CARVEDILOL 12.5 MG TABLET PO SCH ×2 (08:22→23:26)
[2017-10-06] MEDS: LISINOPRIL 20 MG TABLET PO SCH ×2 (08:23→23:26)
[2017-10-06] MEDS: MEROPENEM 1,000 MG in SYRINGE 1 EACH IV SCH ×2 (08:23→21:55)
[2017-10-06] MEDS: SODIUM CHLORIDE 0.45% 1,000 ML IV SCH (11:45)
[2017-10-07] MEDS: INSULIN REGULAR 100 UNIT/ML SUBCUT SCH ×4 (01:07→17:27)
[2017-10-07] MEDS: ACETYLCYSTEINE 20% 800 MG/4 ML VIAL RESP TX SCH ×4 (02:47→21:00)
[2017-10-07] MEDS: THEOPHYLLINE 5.33 MG/ML 30 ML/BOTTLE PO SCH ×4 (03:45→21:33)
[2017-10-07] MEDS: SODIUM CHLORIDE 0.45% 1,000 ML IV SCH (06:44)
[2017-10-07] MEDS: MUPIROCIN 2% OINT 22 GM TUBE TOP SCH (08:40)
[2017-10-07] MEDS: SODIUM HYPOCHLORITE 0.25% IRRIG 473 ML BOTTLE TOP SCH (08:41)
[2017-10-07] MEDS: CARVEDILOL 12.5 MG TABLET PO SCH ×2 (08:41→21:34)
[2017-10-07] MEDS: BACLOFEN 10 MG TABLET PEG SCH ×3 (08:41→17:27)
[2017-10-07] MEDS: amLODIPine 5 MG TABLET PO SCH ×2 (08:42→21:35)
[2017-10-07] MEDS: hydroCHLOROthiazide 12.5 MG CAPSULE PO SCH (08:42)
[2017-10-07] MEDS: LANSOPRAZOLE ODT 30 MG TABLET PO SCH (08:42)
[2017-10-07] MEDS: methylPREDNISolone SOD SUC 40 MG/1 ML VIAL IV SCH ×2 (08:43→21:30)
[2017-10-07] MEDS: MEROPENEM 1,000 MG in SYRINGE 1 EACH IV SCH ×2 (08:43→21:39)
[2017-10-07] MEDS: LISINOPRIL 20 MG TABLET PO SCH ×2 (08:44→21:34)
[2017-10-07] MEDS: levETIRAcetam LIQUID 100 MG/ML 30 ML/BOTTLE PER TUBE SCH ×2 (08:44→21:33)
[2017-10-07 09:02] LABS: Calcium 8.8 MG/DL (8.5-10.1); Osmolality,Calculated 349.3 MOS/KG (273-304); Potassium 4.3 MMOL/L (3.5-5.1)
[2017-10-08] MEDS: MUPIROCIN 2% OINT 22 GM TUBE TOP SCH ×3 (00:02→22:23)
[2017-10-08] MEDS: INSULIN REGULAR 100 UNIT/ML SUBCUT SCH ×4 (01:44→18:13)
[2017-10-08] MEDS: SODIUM CHLORIDE 0.45% 1,000 ML IV SCH ×2 (01:52→14:23)
[2017-10-08] MEDS: THEOPHYLLINE 5.33 MG/ML 30 ML/BOTTLE PO SCH ×4 (03:14→22:12)
[2017-10-08 06:29] LABS: Hematocrit 33.1 VOL% (42.0-52.0); Hemoglobin 10.4 GM/DL (14.0-18.0); Immature Granulocytes % 0.4 %; Immature Granulocytes Absolute 0.03 #; Lymphocytes # 0.6 10*3/uL (1.4-4.0); Lymphocytes % 8.3 % (21.2-54.2); Mean Corpuscular HGB Conc 31.4 GM/DL (32-36); Mean Corpuscular Hemoglobin 33 PG (27-34); Mean Corpuscular Volume 103.4 FL (87-102); Mean Platelet Volume 11.7 FL (9.6-12.0); Monocytes # 0.2 10*3/uL (0.11-0.8); Monocytes % 2.6 % (1.7-12.7); Neutrophils # 6.1 10*3/uL (1.4-7.4); Neutrophils % 88.7 % (38.7-73.9); Platelet Count 179 T/CUMM (130-400); Red Cell Distribution Width 17.7 % (9.3-17.3); White Blood Count 6.9 T/CUMM (4-12)
[2017-10-08 06:54] LABS: Calcium 8.7 MG/DL (8.5-10.1); Magnesium 3.1 MG/DL (1.8-2.4); Osmolality,Calculated 348.4 MOS/KG (273-304); Potassium 4.4 MMOL/L (3.5-5.1)
[2017-10-08] MEDS: ACETYLCYSTEINE 20% 800 MG/4 ML VIAL RESP TX SCH ×4 (08:25→20:40)
[2017-10-08] MEDS: levETIRAcetam LIQUID 100 MG/ML 30 ML/BOTTLE PER TUBE SCH (11:04)
[2017-10-08] MEDS: MEROPENEM 1,000 MG in SYRINGE 1 EACH IV SCH ×2 (11:04→22:16)
[2017-10-08] MEDS: BACLOFEN 10 MG TABLET PEG SCH ×3 (11:05→16:09)
[2017-10-08] MEDS: INSULIN GLARGINE 100 UNIT/ML SUBCUT SCH (11:05)
[2017-10-08] MEDS: LANSOPRAZOLE ODT 30 MG TABLET PO SCH (11:06)
[2017-10-08] MEDS: LISINOPRIL 20 MG TABLET PO SCH ×2 (11:06→22:07)
[2017-10-08] MEDS: CARVEDILOL 12.5 MG TABLET PO SCH ×2 (11:06→22:09)
[2017-10-08] MEDS: SODIUM HYPOCHLORITE 0.25% IRRIG 473 ML BOTTLE TOP SCH (11:07)
[2017-10-08] MEDS: methylPREDNISolone SOD SUC 40 MG/1 ML VIAL IV SCH ×2 (11:08→22:12)
[2017-10-08] MEDS: amLODIPine 5 MG TABLET PO SCH ×2 (11:09→22:09)
[2017-10-08] MEDS: hydroCHLOROthiazide 12.5 MG CAPSULE PO SCH (11:09)
[2017-10-08] MEDS: ACETAMINOPHEN 325 MG TABLET PO PRN (22:08)
[2017-10-09] MEDS: ACETYLCYSTEINE 20% 800 MG/4 ML VIAL RESP TX SCH ×4 (00:20→20:22)
[2017-10-09] MEDS: levETIRAcetam LIQUID 100 MG/ML 30 ML/BOTTLE PER TUBE SCH ×3 (00:46→21:42)
[2017-10-09] MEDS: INSULIN REGULAR 100 UNIT/ML SUBCUT SCH ×4 (00:52→18:34)
[2017-10-09] MEDS: THEOPHYLLINE 5.33 MG/ML 30 ML/BOTTLE PO SCH ×4 (03:07→21:42)
[2017-10-09 06:46] LABS: Hematocrit 32.6 VOL% (42.0-52.0); Hemoglobin 10.7 GM/DL (14.0-18.0); Immature Granulocytes % 0.3 %; Immature Granulocytes Absolute 0.02 #; Lymphocytes # 0.5 10*3/uL (1.4-4.0); Lymphocytes % 8.1 % (21.2-54.2); Mean Corpuscular HGB Conc 32.8 GM/DL (32-36); Mean Corpuscular Hemoglobin 33 PG (27-34); Mean Corpuscular Volume 101.6 FL (87-102); Mean Platelet Volume 11.9 FL (9.6-12.0); Monocytes # 0.2 10*3/uL (0.11-0.8); Monocytes % 2.3 % (1.7-12.7); Neutrophils # 5.9 10*3/uL (1.4-7.4); Neutrophils % 89.3 % (38.7-73.9); Platelet Count 189 T/CUMM (130-400); Red Blood Count 3.21 MC/CUMM (3.8-5.5); Red Cell Distribution Width 17.1 % (9.3-17.3); White Blood Count 6.6 T/CUMM (4-12)
[2017-10-09 07:18] LABS: Calcium 8.7 MG/DL (8.5-10.1); Osmolality,Calculated 338.6 MOS/KG (273-304); Potassium 4.4 MMOL/L (3.5-5.1)
[2017-10-09 07:20] LABS: Albumin 1.8 G/DL (3.4-5.0); Bilirubin,Total 0.5 MG/DL (0.2-1.0); Calcium 8.7 MG/DL (8.5-10.1); Osmolality,Calculated 338.6 MOS/KG (273-304); Potassium 4.5 MMOL/L (3.5-5.1); Total Protein 6.5 G/DL (6.4-8.3)
[2017-10-09] MEDS: BACLOFEN 10 MG TABLET PEG SCH ×3 (10:52→18:34)
[2017-10-09] MEDS: LANSOPRAZOLE ODT 30 MG TABLET PO SCH (10:52)
[2017-10-09] MEDS: hydroCHLOROthiazide 12.5 MG CAPSULE PO SCH (10:52)
[2017-10-09] MEDS: CARVEDILOL 12.5 MG TABLET PO SCH ×2 (10:52→21:47)
[2017-10-09] MEDS: amLODIPine 5 MG TABLET PO SCH ×2 (10:52→22:06)
[2017-10-09] MEDS: INSULIN GLARGINE 100 UNIT/ML SUBCUT SCH (10:54)
[2017-10-09] MEDS: methylPREDNISolone SOD SUC 40 MG/1 ML VIAL IV SCH ×2 (10:55→21:49)
[2017-10-09] MEDS: SODIUM HYPOCHLORITE 0.25% IRRIG 473 ML BOTTLE TOP SCH (11:00)
[2017-10-09] MEDS: LISINOPRIL 20 MG TABLET PO SCH ×2 (11:01→22:06)
[2017-10-09] MEDS: MUPIROCIN 2% OINT 22 GM TUBE TOP SCH ×2 (11:01→21:44)
[2017-10-09] MEDS: SODIUM CHLORIDE 0.45% 1,000 ML IV SCH (13:10)
[2017-10-10] MEDS: ACETYLCYSTEINE 20% 800 MG/4 ML VIAL RESP TX SCH ×4 (00:21→19:03)
[2017-10-10] MEDS: INSULIN REGULAR 100 UNIT/ML SUBCUT SCH ×4 (00:33→18:54)
[2017-10-10] MEDS: SODIUM CHLORIDE 0.45% 1,000 ML IV SCH ×2 (02:30→16:08)
[2017-10-10] MEDS: THEOPHYLLINE 5.33 MG/ML 30 ML/BOTTLE PO SCH ×4 (02:52→22:28)
[2017-10-10 06:03] LABS: Basophils % 0.1 % (0.0-0.8); Hematocrit 31.4 VOL% (42.0-52.0); Immature Granulocytes % 0.7 %; Immature Granulocytes Absolute 0.05 #; Lymphocytes # 0.7 10*3/uL (1.4-4.0); Lymphocytes % 8.5 % (21.2-54.2); Mean Corpuscular HGB Conc 31.8 GM/DL (32-36); Mean Corpuscular Hemoglobin 32 PG (27-34); Mean Corpuscular Volume 101.3 FL (87-102); Mean Platelet Volume 12.2 FL (9.6-12.0); Monocytes # 0.2 10*3/uL (0.11-0.8); Monocytes % 2.1 % (1.7-12.7); Neutrophils # 6.8 10*3/uL (1.4-7.4); Neutrophils % 88.6 % (38.7-73.9); Platelet Count 129 T/CUMM (130-400); White Blood Count 7.7 T/CUMM (4-12)
[2017-10-10 06:33] LABS: Albumin 1.6 G/DL (3.4-5.0); Bilirubin,Total 0.7 MG/DL (0.2-1.0); Calcium 8.2 MG/DL (8.5-10.1); Magnesium 2.7 MG/DL (1.8-2.4); Osmolality,Calculated 319.7 MOS/KG (273-304); Potassium 4.5 MMOL/L (3.5-5.1); Total Protein 5.9 G/DL (6.4-8.3)
[2017-10-10] MEDS: CARVEDILOL 12.5 MG TABLET PO SCH ×2 (10:56→22:27)
[2017-10-10] MEDS: hydroCHLOROthiazide 12.5 MG CAPSULE PO SCH (11:01)
[2017-10-10] MEDS: INSULIN GLARGINE 100 UNIT/ML SUBCUT SCH (11:02)
[2017-10-10] MEDS: BACLOFEN 10 MG TABLET PEG SCH ×3 (11:03→16:10)
[2017-10-10] MEDS: amLODIPine 5 MG TABLET PO SCH ×2 (11:03→22:27)
[2017-10-10] MEDS: LANSOPRAZOLE ODT 30 MG TABLET PO SCH (11:04)
[2017-10-10] MEDS: LISINOPRIL 20 MG TABLET PO SCH ×2 (11:04→22:26)
[2017-10-10] MEDS: methylPREDNISolone SOD SUC 40 MG/1 ML VIAL IV SCH ×2 (11:05→23:09)
[2017-10-10] MEDS: levETIRAcetam LIQUID 100 MG/ML 30 ML/BOTTLE PER TUBE SCH ×2 (14:03→22:27)
[2017-10-10] MEDS: SODIUM HYPOCHLORITE 0.25% IRRIG 473 ML BOTTLE TOP SCH (15:17)
[2017-10-10] MEDS: MUPIROCIN 2% OINT 22 GM TUBE TOP SCH ×2 (15:18→22:31)
[2017-10-11] MEDS: ACETYLCYSTEINE 20% 800 MG/4 ML VIAL RESP TX SCH ×4 (00:14→19:17)
[2017-10-11] MEDS: INSULIN REGULAR 100 UNIT/ML SUBCUT SCH ×4 (01:25→17:05)
[2017-10-11] MEDS: THEOPHYLLINE 5.33 MG/ML 30 ML/BOTTLE PO SCH ×3 (03:59→15:48)
[2017-10-11] MEDS: SODIUM CHLORIDE 0.45% 1,000 ML IV SCH ×3 (05:30→19:56)
[2017-10-11] MEDS: MUPIROCIN 2% OINT 22 GM TUBE TOP SCH (09:58)
[2017-10-11] MEDS: SODIUM HYPOCHLORITE 0.25% IRRIG 473 ML BOTTLE TOP SCH (09:58)
[2017-10-11] MEDS: CARVEDILOL 12.5 MG TABLET PO SCH (09:59)
[2017-10-11] MEDS: hydroCHLOROthiazide 12.5 MG CAPSULE PO SCH (10:00)
[2017-10-11] MEDS: levETIRAcetam LIQUID 100 MG/ML 30 ML/BOTTLE PER TUBE SCH (10:00)
[2017-10-11] MEDS: BACLOFEN 10 MG TABLET PEG SCH ×3 (10:01→17:05)
[2017-10-11] MEDS: amLODIPine 5 MG TABLET PO SCH (10:01)
[2017-10-11] MEDS: LISINOPRIL 20 MG TABLET PO SCH (10:02)
[2017-10-11] MEDS: LANSOPRAZOLE ODT 30 MG TABLET PO SCH (10:02)
[2017-10-11] MEDS: methylPREDNISolone SOD SUC 40 MG/1 ML VIAL IV SCH (10:03)
[2017-10-11] MEDS: INSULIN GLARGINE 100 UNIT/ML SUBCUT SCH (10:23)
[2017-10-12] MEDS: MUPIROCIN 2% OINT 22 GM TUBE TOP SCH ×3 (00:13→23:33)
[2017-10-12] MEDS: CARVEDILOL 12.5 MG TABLET PO SCH ×3 (00:13→23:29)
[2017-10-12] MEDS: amLODIPine 5 MG TABLET PO SCH ×3 (00:14→23:27)
[2017-10-12] MEDS: LISINOPRIL 20 MG TABLET PO SCH ×3 (00:15→23:28)
[2017-10-12] MEDS: methylPREDNISolone SOD SUC 40 MG/1 ML VIAL IV SCH ×4 (00:16→23:46)
[2017-10-12] MEDS: levETIRAcetam LIQUID 100 MG/ML 30 ML/BOTTLE PER TUBE SCH ×3 (00:19→23:31)
[2017-10-12] MEDS: THEOPHYLLINE 5.33 MG/ML 30 ML/BOTTLE PO SCH ×5 (00:20→23:30)
[2017-10-12] MEDS: ACETYLCYSTEINE 20% 800 MG/4 ML VIAL RESP TX SCH ×4 (00:58→19:51)
[2017-10-12] MEDS: INSULIN REGULAR 100 UNIT/ML SUBCUT SCH ×4 (02:27→19:08)
[2017-10-12 06:31] LABS: Basophils % 0.1 % (0.0-0.8); Hematocrit 32.6 VOL% (42.0-52.0); Immature Granulocytes % 0.6 %; Immature Granulocytes Absolute 0.07 #; Lymphocytes # 0.6 10*3/uL (1.4-4.0); Lymphocytes % 4.9 % (21.2-54.2); Mean Corpuscular HGB Conc 33.7 GM/DL (32-36); Mean Corpuscular Hemoglobin 33 PG (27-34); Mean Platelet Volume 11.6 FL (9.6-12.0); Monocytes # 0.2 10*3/uL (0.11-0.8); Monocytes % 1.9 % (1.7-12.7); Neutrophils # 11.2 10*3/uL (1.4-7.4); Neutrophils % 92.5 % (38.7-73.9); Platelet Count 179 T/CUMM (130-400); Red Blood Count 3.36 MC/CUMM (3.8-5.5); Red Cell Distribution Width 16.3 % (9.3-17.3); White Blood Count 12.1 T/CUMM (4-12)
[2017-10-12 07:04] LABS: Band Neutrophils 1 % (0-10); Giant Platelets Few; Hypochromasia 1+; Lymphocytes 3 % (20-55); Ovalocytes Slight; Platelet Estimate Normal; Segmented Neutrophils 94 % (50-85); Total Cells Counted 100
[2017-10-12] MEDS: LANSOPRAZOLE ODT 30 MG TABLET PO SCH (10:38)
[2017-10-12] MEDS: BACLOFEN 10 MG TABLET PEG SCH ×3 (10:38→16:07)
[2017-10-12] MEDS: hydroCHLOROthiazide 12.5 MG CAPSULE PO SCH (10:38)
[2017-10-12] MEDS: SODIUM HYPOCHLORITE 0.25% IRRIG 473 ML BOTTLE TOP SCH (10:41)
[2017-10-12] MEDS: INSULIN GLARGINE 100 UNIT/ML SUBCUT SCH (10:49)
[2017-10-12] MEDS: SODIUM CHLORIDE 0.45% 1,000 ML IV SCH (16:02)
[2017-10-13] MEDS: ACETYLCYSTEINE 20% 800 MG/4 ML VIAL RESP TX SCH ×4 (01:15→20:11)
[2017-10-13] MEDS: INSULIN REGULAR 100 UNIT/ML SUBCUT SCH ×4 (04:12→17:54)
[2017-10-13] MEDS: THEOPHYLLINE 5.33 MG/ML 30 ML/BOTTLE PO SCH ×4 (04:13→22:25)
[2017-10-13 07:34] LABS: Magnesium 2.2 MG/DL (1.8-2.4); Osmolality,Calculated 289.8 MOS/KG (273-304); Potassium 4.5 MMOL/L (3.5-5.1)
[2017-10-13 09:28] LABS: Basophils % 0.1 % (0.0-0.8); Eosinophils % 0.2 % (0.00-10.9); Hematocrit 30.9 VOL% (42.0-52.0); Immature Granulocytes % 0.5 %; Immature Granulocytes Absolute 0.05 #; Lymphocytes # 1.2 10*3/uL (1.4-4.0); Lymphocytes % 11.5 % (21.2-54.2); Mean Corpuscular HGB Conc 32.4 GM/DL (32-36); Mean Corpuscular Hemoglobin 33 PG (27-34); Mean Corpuscular Volume 100.7 FL (87-102); Mean Platelet Volume 11.9 FL (9.6-12.0); Monocytes # 0.4 10*3/uL (0.11-0.8); Monocytes % 3.9 % (1.7-12.7); Neutrophils # 8.3 10*3/uL (1.4-7.4); Neutrophils % 83.8 % (38.7-73.9); Platelet Count 189 T/CUMM (130-400); Red Blood Count 3.07 MC/CUMM (3.8-5.5); Red Cell Distribution Width 16.9 % (9.3-17.3)
[2017-10-13] MEDS: BACLOFEN 10 MG TABLET PEG SCH ×3 (09:45→17:55)
[2017-10-13] MEDS: methylPREDNISolone SOD SUC 40 MG/1 ML VIAL IV SCH ×2 (09:45→22:25)
[2017-10-13] MEDS: LANSOPRAZOLE ODT 30 MG TABLET PO SCH (09:45)
[2017-10-13] MEDS: CARVEDILOL 12.5 MG TABLET PO SCH ×2 (09:48→22:25)
[2017-10-13] MEDS: MUPIROCIN 2% OINT 22 GM TUBE TOP SCH ×2 (09:48→22:24)
[2017-10-13] MEDS: SODIUM HYPOCHLORITE 0.25% IRRIG 473 ML BOTTLE TOP SCH (09:48)
[2017-10-13] MEDS: hydroCHLOROthiazide 12.5 MG CAPSULE PO SCH (09:49)
[2017-10-13] MEDS: INSULIN GLARGINE 100 UNIT/ML SUBCUT SCH (09:50)
[2017-10-13] MEDS: amLODIPine 5 MG TABLET PO SCH ×2 (09:50→22:25)
[2017-10-13] MEDS: levETIRAcetam LIQUID 100 MG/ML 30 ML/BOTTLE PER TUBE SCH ×2 (09:50→22:25)
[2017-10-13] MEDS: LISINOPRIL 20 MG TABLET PO SCH ×2 (09:50→22:26)
[2017-10-13] MEDS: DEXTROSE 50% 25 GM/50 ML VIAL IV PRN (12:12)
[2017-10-13] MEDS: SODIUM CHLORIDE 0.45% 1,000 ML IV SCH (12:14)
[2017-10-13] MEDS ORDERED: SODIUM CHLORIDE 0.9% 250 ML IV ONE (21:47)
[2017-10-14] MEDS: ACETYLCYSTEINE 20% 800 MG/4 ML VIAL RESP TX SCH ×4 (00:46→20:06)
[2017-10-14] MEDS: INSULIN REGULAR 100 UNIT/ML SUBCUT SCH ×4 (02:18→18:33)
[2017-10-14] MEDS: THEOPHYLLINE 5.33 MG/ML 30 ML/BOTTLE PO SCH ×4 (04:03→21:18)
[2017-10-14] MEDS: SODIUM CHLORIDE 0.45% 1,000 ML IV SCH ×2 (04:06→21:21)
[2017-10-14] MEDS: CARVEDILOL 12.5 MG TABLET PO SCH ×3 (09:11→22:35)
[2017-10-14] MEDS: amLODIPine 5 MG TABLET PO SCH ×2 (09:11→21:19)
[2017-10-14] MEDS: hydroCHLOROthiazide 12.5 MG CAPSULE PO SCH (09:11)
[2017-10-14] MEDS: LISINOPRIL 20 MG TABLET PO SCH ×2 (09:11→21:19)
[2017-10-14] MEDS: BACLOFEN 10 MG TABLET PEG SCH ×3 (10:35→18:29)
[2017-10-14] MEDS: LANSOPRAZOLE ODT 30 MG TABLET PO SCH (10:35)
[2017-10-14] MEDS: INSULIN GLARGINE 100 UNIT/ML SUBCUT SCH (10:35)
[2017-10-14] MEDS: methylPREDNISolone SOD SUC 40 MG/1 ML VIAL IV SCH ×2 (10:36→21:15)
[2017-10-14] MEDS: levETIRAcetam LIQUID 100 MG/ML 30 ML/BOTTLE PER TUBE SCH ×2 (10:36→21:19)
[2017-10-14] MEDS: SODIUM HYPOCHLORITE 0.25% IRRIG 473 ML BOTTLE TOP SCH (10:39)
[2017-10-14] MEDS: MUPIROCIN 2% OINT 22 GM TUBE TOP SCH ×2 (10:40→22:35)
[2017-10-15] MEDS: ACETYLCYSTEINE 20% 800 MG/4 ML VIAL RESP TX SCH ×4 (00:38→20:40)
[2017-10-15] MEDS: THEOPHYLLINE 5.33 MG/ML 30 ML/BOTTLE PO SCH ×4 (02:47→23:46)
[2017-10-15] MEDS: INSULIN REGULAR 100 UNIT/ML SUBCUT SCH ×4 (05:53→17:51)
[2017-10-15] MEDS: MUPIROCIN 2% OINT 22 GM TUBE TOP SCH ×2 (10:11→23:41)
[2017-10-15] MEDS: SODIUM HYPOCHLORITE 0.25% IRRIG 473 ML BOTTLE TOP SCH (10:12)
[2017-10-15] MEDS: LISINOPRIL 20 MG TABLET PO SCH ×2 (10:13→23:48)
[2017-10-15] MEDS: LANSOPRAZOLE ODT 30 MG TABLET PO SCH (10:13)
[2017-10-15] MEDS: BACLOFEN 10 MG TABLET PEG SCH ×3 (10:13→16:18)
[2017-10-15] MEDS: amLODIPine 5 MG TABLET PO SCH ×2 (10:13→23:45)
[2017-10-15] MEDS: methylPREDNISolone SOD SUC 40 MG/1 ML VIAL IV SCH ×2 (10:13→23:41)
[2017-10-15] MEDS: hydroCHLOROthiazide 12.5 MG CAPSULE PO SCH (10:13)
[2017-10-15] MEDS: CARVEDILOL 12.5 MG TABLET PO SCH ×2 (10:14→23:40)
[2017-10-15] MEDS: INSULIN GLARGINE 100 UNIT/ML SUBCUT SCH (10:14)
[2017-10-15] MEDS: levETIRAcetam LIQUID 100 MG/ML 30 ML/BOTTLE PER TUBE SCH ×2 (10:19→23:46)
[2017-10-15] MEDS: SODIUM CHLORIDE 0.45% 1,000 ML IV SCH (10:22)
[2017-10-16] MEDS: SODIUM CHLORIDE 0.45% 1,000 ML IV SCH ×2 (00:50→15:47)
[2017-10-16] MEDS: INSULIN REGULAR 100 UNIT/ML SUBCUT SCH ×4 (01:17→18:10)
[2017-10-16] MEDS: THEOPHYLLINE 5.33 MG/ML 30 ML/BOTTLE PO SCH ×4 (03:31→23:55)
[2017-10-16] MEDS: ACETYLCYSTEINE 20% 800 MG/4 ML VIAL RESP TX SCH ×4 (05:04→19:45)
[2017-10-16 09:06] LABS: Calcium 8.1 MG/DL (8.5-10.1); Osmolality,Calculated 290.7 MOS/KG (273-304); Potassium 4.8 MMOL/L (3.5-5.1)
[2017-10-16] MEDS: CARVEDILOL 12.5 MG TABLET PO SCH ×2 (10:07→23:55)
[2017-10-16] MEDS: MUPIROCIN 2% OINT 22 GM TUBE TOP SCH ×2 (10:07→23:55)
[2017-10-16] MEDS: LANSOPRAZOLE ODT 30 MG TABLET PO SCH (10:07)
[2017-10-16] MEDS: hydroCHLOROthiazide 12.5 MG CAPSULE PO SCH (10:07)
[2017-10-16] MEDS: LISINOPRIL 20 MG TABLET PO SCH ×2 (10:08→23:55)
[2017-10-16] MEDS: INSULIN GLARGINE 100 UNIT/ML SUBCUT SCH (10:08)
[2017-10-16] MEDS: amLODIPine 5 MG TABLET PO SCH ×2 (10:08→23:55)
[2017-10-16] MEDS: BACLOFEN 10 MG TABLET PEG SCH ×3 (10:08→16:51)
[2017-10-16] MEDS: methylPREDNISolone SOD SUC 40 MG/1 ML VIAL IV SCH ×2 (10:08→21:45)
[2017-10-16] MEDS: levETIRAcetam LIQUID 100 MG/ML 30 ML/BOTTLE PER TUBE SCH ×2 (10:10→23:55)
[2017-10-16] MEDS: SODIUM HYPOCHLORITE 0.25% IRRIG 473 ML BOTTLE TOP SCH (10:10)
[2017-10-17] MEDS: DEXTROSE 50% 25 GM/50 ML VIAL IV PRN (00:19)
[2017-10-17] MEDS: INSULIN REGULAR 100 UNIT/ML SUBCUT SCH ×5 (00:46→18:58)
[2017-10-17] MEDS: ACETYLCYSTEINE 20% 800 MG/4 ML VIAL RESP TX SCH ×4 (02:21→19:23)
[2017-10-17] MEDS: THEOPHYLLINE 5.33 MG/ML 30 ML/BOTTLE PO SCH ×4 (03:58→23:47)
[2017-10-17] MEDS: SODIUM CHLORIDE 0.45% 1,000 ML IV SCH (06:45)
[2017-10-17] MEDS: MUPIROCIN 2% OINT 22 GM TUBE TOP SCH (09:03)
[2017-10-17] MEDS: levETIRAcetam LIQUID 100 MG/ML 30 ML/BOTTLE PER TUBE SCH ×2 (09:07→23:47)
[2017-10-17] MEDS: LANSOPRAZOLE ODT 30 MG TABLET PO SCH (09:08)
[2017-10-17] MEDS: hydroCHLOROthiazide 12.5 MG CAPSULE PO SCH (09:08)
[2017-10-17] MEDS: BACLOFEN 10 MG TABLET PEG SCH ×3 (09:08→16:51)
[2017-10-17] MEDS: LISINOPRIL 20 MG TABLET PO SCH ×2 (09:09→23:48)
[2017-10-17] MEDS: amLODIPine 5 MG TABLET PO SCH ×2 (09:09→23:47)
[2017-10-17] MEDS: CARVEDILOL 12.5 MG TABLET PO SCH ×2 (09:09→23:47)
[2017-10-17] MEDS: methylPREDNISolone SOD SUC 40 MG/1 ML VIAL IV SCH (09:09)
[2017-10-17] MEDS: INSULIN GLARGINE 100 UNIT/ML SUBCUT SCH (09:10)
[2017-10-17] MEDS: SODIUM HYPOCHLORITE 0.25% IRRIG 473 ML BOTTLE TOP SCH (13:50)
[2017-10-17] MEDS: CIPROFLOXACIN INJ 400 MG in PREMIX 1 EACH IV SCH (18:12)
[2017-10-17] MEDS ORDERED: DEXTROSE 5% NACL 0.22% 1,000 ML IV SCH (19:30)
[2017-10-18] MEDS: methylPREDNISolone SOD SUC 40 MG/1 ML VIAL IV SCH ×3 (00:49→23:12)
[2017-10-18] MEDS: DEXTROSE 5% NACL 0.22% 500 ML IV SCH ×5 (00:50→19:49)
[2017-10-18] MEDS: SODIUM CHLORIDE 0.45% 1,000 ML IV SCH (00:51)
[2017-10-18] MEDS: DEXTROSE 50% 25 GM/50 ML VIAL IV PRN ×2 (01:37→12:26)
[2017-10-18] MEDS: MUPIROCIN 2% OINT 22 GM TUBE TOP SCH ×3 (01:45→23:13)
[2017-10-18] MEDS: INSULIN REGULAR 100 UNIT/ML SUBCUT SCH ×4 (01:45→19:49)
[2017-10-18] MEDS: ACETYLCYSTEINE 20% 800 MG/4 ML VIAL RESP TX SCH ×4 (02:17→19:52)
[2017-10-18] MEDS: THEOPHYLLINE 5.33 MG/ML 30 ML/BOTTLE PO SCH ×4 (03:00→22:43)
[2017-10-18] MEDS: CIPROFLOXACIN INJ 400 MG in PREMIX 1 EACH IV SCH ×2 (04:58→19:48)
[2017-10-18] MEDS: CARVEDILOL 12.5 MG TABLET PO SCH ×3 (08:45→22:48)
[2017-10-18] MEDS: SODIUM HYPOCHLORITE 0.25% IRRIG 473 ML BOTTLE TOP SCH (08:45)
[2017-10-18] MEDS: levETIRAcetam LIQUID 100 MG/ML 30 ML/BOTTLE PER TUBE SCH ×2 (08:46→22:43)
[2017-10-18] MEDS: hydroCHLOROthiazide 12.5 MG CAPSULE PO SCH (08:46)
[2017-10-18] MEDS: INSULIN GLARGINE 100 UNIT/ML SUBCUT SCH (08:47)
[2017-10-18] MEDS: amLODIPine 5 MG TABLET PO SCH ×2 (08:47→22:48)
[2017-10-18] MEDS: LANSOPRAZOLE ODT 30 MG TABLET PO SCH (08:47)
[2017-10-18] MEDS: BACLOFEN 10 MG TABLET PEG SCH ×3 (08:47→17:14)
[2017-10-18] MEDS: LISINOPRIL 20 MG TABLET PO SCH ×2 (08:48→22:48)
[2017-10-18] MEDS: ACETAMINOPHEN 325 MG TABLET PO PRN (19:15)
[2017-10-19] MEDS: INSULIN REGULAR 100 UNIT/ML SUBCUT SCH ×4 (00:38→19:45)
[2017-10-19] MEDS: ACETYLCYSTEINE 20% 800 MG/4 ML VIAL RESP TX SCH ×4 (02:15→20:04)
[2017-10-19] MEDS: THEOPHYLLINE 5.33 MG/ML 30 ML/BOTTLE PO SCH ×4 (04:04→21:41)
[2017-10-19] MEDS: DEXTROSE 5% NACL 0.22% 500 ML IV SCH (05:12)
[2017-10-19] MEDS: CIPROFLOXACIN INJ 400 MG in PREMIX 1 EACH IV SCH ×2 (05:37→18:49)
[2017-10-19] MEDS: DEXTROSE 5% NACL 0.22% 1,000 ML IV SCH ×2 (05:42→17:48)
[2017-10-19] MEDS: LANSOPRAZOLE ODT 30 MG TABLET PO SCH (10:13)
[2017-10-19] MEDS: amLODIPine 5 MG TABLET PO SCH ×2 (10:13→21:41)
[2017-10-19] MEDS: hydroCHLOROthiazide 12.5 MG CAPSULE PO SCH (10:13)
[2017-10-19] MEDS: LISINOPRIL 20 MG TABLET PO SCH ×2 (10:13→21:40)
[2017-10-19] MEDS: BACLOFEN 10 MG TABLET PEG SCH ×3 (10:14→18:12)
[2017-10-19] MEDS: CARVEDILOL 12.5 MG TABLET PO SCH ×2 (10:14→21:41)
[2017-10-19] MEDS: levETIRAcetam LIQUID 100 MG/ML 30 ML/BOTTLE PER TUBE SCH ×2 (10:14→21:40)
[2017-10-19] MEDS: methylPREDNISolone SOD SUC 40 MG/1 ML VIAL IV SCH ×2 (10:40→21:42)
[2017-10-19] MEDS: INSULIN GLARGINE 100 UNIT/ML SUBCUT SCH (12:45)
[2017-10-19] MEDS: MUPIROCIN 2% OINT 22 GM TUBE TOP SCH ×2 (12:59→21:48)
[2017-10-19] MEDS: SODIUM HYPOCHLORITE 0.25% IRRIG 473 ML BOTTLE TOP SCH (15:35)
[2017-10-20] MEDS: INSULIN REGULAR 100 UNIT/ML SUBCUT SCH ×4 (00:44→18:25)
[2017-10-20] MEDS: ACETYLCYSTEINE 20% 800 MG/4 ML VIAL RESP TX SCH ×4 (00:45→19:05)
[2017-10-20] MEDS: THEOPHYLLINE 5.33 MG/ML 30 ML/BOTTLE PO SCH ×4 (04:22→23:21)
[2017-10-20] MEDS: CIPROFLOXACIN INJ 400 MG in PREMIX 1 EACH IV SCH ×2 (05:34→16:44)
[2017-10-20] MEDS: DEXTROSE 5% NACL 0.22% 1,000 ML IV SCH ×2 (05:36→16:42)
[2017-10-20] MEDS: MUPIROCIN 2% OINT 22 GM TUBE TOP SCH ×2 (10:06→23:23)
[2017-10-20] MEDS: SODIUM HYPOCHLORITE 0.25% IRRIG 473 ML BOTTLE TOP SCH (10:07)
[2017-10-20] MEDS: hydroCHLOROthiazide 12.5 MG CAPSULE PO SCH (10:09)
[2017-10-20] MEDS: CARVEDILOL 12.5 MG TABLET PO SCH ×2 (10:10→23:16)
[2017-10-20] MEDS: levETIRAcetam LIQUID 100 MG/ML 30 ML/BOTTLE PER TUBE SCH ×2 (10:11→23:22)
[2017-10-20] MEDS: INSULIN GLARGINE 100 UNIT/ML SUBCUT SCH (10:12)
[2017-10-20] MEDS: amLODIPine 5 MG TABLET PO SCH ×2 (10:13→23:16)
[2017-10-20] MEDS: BACLOFEN 10 MG TABLET PEG SCH ×3 (10:13→16:16)
[2017-10-20] MEDS: LANSOPRAZOLE ODT 30 MG TABLET PO SCH (10:14)
[2017-10-20] MEDS: LISINOPRIL 20 MG TABLET PO SCH ×2 (10:14→23:40)
[2017-10-20] MEDS: methylPREDNISolone SOD SUC 40 MG/1 ML VIAL IV SCH ×2 (10:15→23:23)
[2017-10-21] MEDS: INSULIN REGULAR 100 UNIT/ML SUBCUT SCH ×4 (01:56→19:30)
[2017-10-21] MEDS: DEXTROSE 5% NACL 0.22% 1,000 ML IV SCH ×2 (04:48)
[2017-10-21] MEDS: CIPROFLOXACIN INJ 400 MG in PREMIX 1 EACH IV SCH (04:55)
[2017-10-21 07:03] LABS: Hematocrit 23.6 VOL% (42.0-52.0); Hemoglobin 7.6 GM/DL (14.0-18.0); Immature Granulocytes % 0.4 %; Immature Granulocytes Absolute 0.03 #; Lymphocytes # 0.5 10*3/uL (1.4-4.0); Lymphocytes % 6.4 % (21.2-54.2); Mean Corpuscular HGB Conc 32.2 GM/DL (32-36); Mean Corpuscular Hemoglobin 32 PG (27-34); Mean Platelet Volume 10.4 FL (9.6-12.0); Monocytes # 0.2 10*3/uL (0.11-0.8); Monocytes % 3.1 % (1.7-12.7); Neutrophils # 6.3 10*3/uL (1.4-7.4); Neutrophils % 90.1 % (38.7-73.9); Platelet Count 126 T/CUMM (130-400); Red Blood Count 2.36 MC/CUMM (3.8-5.5); Red Cell Distribution Width 16.4 % (9.3-17.3)
[2017-10-21 07:29] LABS: Hypochromasia Slight
[2017-10-21 07:38] LABS: Calcium 8.2 MG/DL (8.5-10.1); Osmolality,Calculated 281.2 MOS/KG (273-304); Potassium 4.3 MMOL/L (3.5-5.1)
[2017-10-21] MEDS: THEOPHYLLINE 5.33 MG/ML 30 ML/BOTTLE PO SCH ×4 (08:04→22:47)
[2017-10-21] MEDS: MUPIROCIN 2% OINT 22 GM TUBE TOP SCH ×2 (10:23→22:39)
[2017-10-21] MEDS: CARVEDILOL 12.5 MG TABLET PO SCH ×2 (10:24→22:39)
[2017-10-21] MEDS: hydroCHLOROthiazide 12.5 MG CAPSULE PO SCH (10:26)
[2017-10-21] MEDS: levETIRAcetam LIQUID 100 MG/ML 30 ML/BOTTLE PER TUBE SCH ×2 (10:27→22:46)
[2017-10-21] MEDS: INSULIN GLARGINE 100 UNIT/ML SUBCUT SCH (10:28)
[2017-10-21] MEDS: BACLOFEN 10 MG TABLET PEG SCH ×3 (10:28→18:05)
[2017-10-21] MEDS: LANSOPRAZOLE ODT 30 MG TABLET PO SCH (10:29)
[2017-10-21] MEDS: LISINOPRIL 20 MG TABLET PO SCH ×2 (10:29→22:51)
[2017-10-21] MEDS: methylPREDNISolone SOD SUC 40 MG/1 ML VIAL IV SCH ×2 (10:30→22:48)
[2017-10-21 12:37] LABS: Hematocrit 22.6 VOL% (42.0-52.0); Hemoglobin 7.4 GM/DL (14.0-18.0); Immature Granulocytes % 0.5 %; Immature Granulocytes Absolute 0.03 #; Lymphocytes # 0.5 10*3/uL (1.4-4.0); Lymphocytes % 8.3 % (21.2-54.2); Mean Corpuscular HGB Conc 32.7 GM/DL (32-36); Mean Corpuscular Hemoglobin 33 PG (27-34); Mean Corpuscular Volume 100.4 FL (87-102); Mean Platelet Volume 10.4 FL (9.6-12.0); Monocytes # 0.2 10*3/uL (0.11-0.8); Monocytes % 3.8 % (1.7-12.7); Neutrophils # 5.3 10*3/uL (1.4-7.4); Neutrophils % 87.4 % (38.7-73.9); Platelet Count 115 T/CUMM (130-400); Red Blood Count 2.25 MC/CUMM (3.8-5.5); Red Cell Distribution Width 16.7 % (9.3-17.3); White Blood Count 6.1 T/CUMM (4-12)
[2017-10-21 13:14] LABS: Band Neutrophils 1 % (0-10); Hypochromasia 1+; Lymphocytes 12 % (20-55); Macrocytosis 1+; Segmented Neutrophils 84 % (50-85); Total Cells Counted 100
[2017-10-21 13:15] LABS: Platelet Estimate Adequate
[2017-10-21] MEDS ORDERED: SODIUM CHLORIDE 0.9% 1,000 ML IV PRN (13:16)
[2017-10-21] MEDS: amLODIPine 5 MG TABLET PO SCH ×2 (13:28→22:40)
[2017-10-21] MEDS: SODIUM HYPOCHLORITE 0.25% IRRIG 473 ML BOTTLE TOP SCH (13:28)
[2017-10-21] MEDS: ACETAMINOPHEN 325 MG TABLET PO PRN (22:40)
[2017-10-22] MEDS: INSULIN REGULAR 100 UNIT/ML SUBCUT SCH ×4 (00:42→19:17)
[2017-10-22] MEDS: THEOPHYLLINE 5.33 MG/ML 30 ML/BOTTLE PO SCH ×4 (04:52→20:53)
[2017-10-22] MEDS ORDERED: SODIUM CHLORIDE 0.9% 1,000 ML IV PRN (09:21)
[2017-10-22] MEDS: INSULIN GLARGINE 100 UNIT/ML SUBCUT SCH (10:15)
[2017-10-22] MEDS: LISINOPRIL 20 MG TABLET PO SCH ×2 (10:15→20:53)
[2017-10-22] MEDS: CARVEDILOL 12.5 MG TABLET PO SCH ×2 (10:15→20:52)
[2017-10-22] MEDS: BACLOFEN 10 MG TABLET PEG SCH ×3 (10:15→16:37)
[2017-10-22] MEDS: methylPREDNISolone SOD SUC 40 MG/1 ML VIAL IV SCH ×2 (10:16→20:55)
[2017-10-22] MEDS: amLODIPine 5 MG TABLET PO SCH ×2 (10:16→20:53)
[2017-10-22] MEDS: LANSOPRAZOLE ODT 30 MG TABLET PO SCH (10:16)
[2017-10-22] MEDS: hydroCHLOROthiazide 12.5 MG CAPSULE PO SCH (10:16)
[2017-10-22] MEDS: SODIUM HYPOCHLORITE 0.25% IRRIG 473 ML BOTTLE TOP SCH (10:17)
[2017-10-22] MEDS: MUPIROCIN 2% OINT 22 GM TUBE TOP SCH ×2 (10:17→20:53)
[2017-10-22] MEDS: levETIRAcetam LIQUID 100 MG/ML 30 ML/BOTTLE PER TUBE SCH ×2 (10:17→20:55)
[2017-10-22] MEDS: DEXTROSE 5% NACL 0.22% 1,000 ML IV SCH ×3 (12:58→18:44)
[2017-10-22] MEDS: ACETAMINOPHEN 325 MG TABLET PO PRN (20:53)
[2017-10-22] MEDS: GENTAMICIN 0.1% CREAM 15 GM TUBE TOP SCH (20:54)
[2017-10-22] MEDS: CHLORHEXIDINE 4% SOLN 118 ML BOTTLE TOP SCH (20:55)
[2017-10-23] MEDS: INSULIN REGULAR 100 UNIT/ML SUBCUT SCH ×4 (00:54→17:26)
[2017-10-23] MEDS: DEXTROSE 50% 25 GM/50 ML VIAL IV PRN (00:55)
[2017-10-23] MEDS: DEXTROSE 5% NACL 0.22% 1,000 ML IV SCH ×2 (01:07→15:26)
[2017-10-23] MEDS: ACETIC ACID 0.25% IRRIGATION 1,000 ML BOTTLE IRRIG SCH ×3 (01:08→21:23)
[2017-10-23] MEDS: THEOPHYLLINE 5.33 MG/ML 30 ML/BOTTLE PO SCH ×4 (03:29→21:22)
[2017-10-23 06:02] LABS: Hematocrit 34.5 VOL% (42.0-52.0); Hemoglobin 11.4 GM/DL (14.0-18.0)
[2017-10-23 06:33] LABS: Magnesium 2.2 MG/DL (1.8-2.4); Osmolality,Calculated 279.8 MOS/KG (273-304); Potassium 4.9 MMOL/L (3.5-5.1); Prealbumin 20.8 MG/DL (20-40)
[2017-10-23] MEDS: methylPREDNISolone SOD SUC 40 MG/1 ML VIAL IV SCH ×2 (09:35→21:23)
[2017-10-23] MEDS: amLODIPine 5 MG TABLET PO SCH ×2 (09:38→21:19)
[2017-10-23] MEDS: CARVEDILOL 12.5 MG TABLET PO SCH ×2 (09:38→21:20)
[2017-10-23] MEDS: hydroCHLOROthiazide 12.5 MG CAPSULE PO SCH (09:38)
[2017-10-23] MEDS: LISINOPRIL 20 MG TABLET PO SCH ×2 (09:38→21:21)
[2017-10-23] MEDS: BACLOFEN 10 MG TABLET PEG SCH ×3 (09:38→17:20)
[2017-10-23] MEDS: LANSOPRAZOLE ODT 30 MG TABLET PO SCH (09:38)
[2017-10-23] MEDS: INSULIN GLARGINE 100 UNIT/ML SUBCUT SCH ×2 (09:39→10:20)
[2017-10-23] MEDS: levETIRAcetam LIQUID 100 MG/ML 30 ML/BOTTLE PER TUBE SCH ×2 (09:39→21:22)
[2017-10-23] MEDS: GENTAMICIN 0.1% CREAM 15 GM TUBE TOP SCH ×2 (10:23→21:22)
[2017-10-23] MEDS: MUPIROCIN 2% OINT 22 GM TUBE TOP SCH ×2 (10:23→21:22)
[2017-10-23] MEDS: CHLORHEXIDINE 4% SOLN 118 ML BOTTLE TOP SCH ×2 (10:23→21:23)
[2017-10-23] MEDS ORDERED: TUBERCULIN SKIN TEST 0.1 ML SYRINGE INTRADERM ONE (18:00)
[2017-10-24] MEDS: INSULIN REGULAR 100 UNIT/ML SUBCUT SCH ×2 (01:27→07:15)
[2017-10-24] MEDS: THEOPHYLLINE 5.33 MG/ML 30 ML/BOTTLE PO SCH ×2 (03:43→07:14)
[2017-10-24] MEDS: DEXTROSE 5% NACL 0.22% 1,000 ML IV SCH (05:01)
[2017-10-24] MEDS: CARVEDILOL 12.5 MG TABLET PO SCH (07:13)
[2017-10-24] MEDS: LANSOPRAZOLE ODT 30 MG TABLET PO SCH (07:14)
[2017-10-24] MEDS: amLODIPine 5 MG TABLET PO SCH (07:14)
[2017-10-24] MEDS: levETIRAcetam LIQUID 100 MG/ML 30 ML/BOTTLE PER TUBE SCH (07:14)
[2017-10-24] MEDS: BACLOFEN 10 MG TABLET PEG SCH (07:14)
[2017-10-24] MEDS: hydroCHLOROthiazide 12.5 MG CAPSULE PO SCH (07:15)
[2017-10-24] MEDS: CHLORHEXIDINE 4% SOLN 118 ML BOTTLE TOP SCH (07:15)
[2017-10-24] MEDS: GENTAMICIN 0.1% CREAM 15 GM TUBE TOP SCH (07:15)
[2017-10-24] MEDS: MUPIROCIN 2% OINT 22 GM TUBE TOP SCH (07:15)
[2017-10-24] MEDS: ACETIC ACID 0.25% IRRIGATION 1,000 ML BOTTLE IRRIG SCH (07:16)
[2017-10-24] MEDS: LISINOPRIL 20 MG TABLET PO SCH (07:16)
[2017-10-24] MEDS: methylPREDNISolone SOD SUC 40 MG/1 ML VIAL IV SCH (07:16)
[2017-10-24] MEDS: INSULIN GLARGINE 100 UNIT/ML SUBCUT SCH (07:16)
[2017-10-24 08:11] VITALS: BP 101/70
== END 2017-10-24 09:08 | DRG 5 ==
LOC: EDBD → EDUNIT# → N.ED 08:19 → SUATTDRO 09:24 → SUPCPDRO 09:24 → N.EDINP 09:24 → N.ICU 09:55 → N.TELEN 09-23 19:20 → N.2E 09-24 15:37
PROVIDERS: ADMIT Internal Medicine Cardiovascular Disease; ATTEND Internal Medicine Geriatric Medicine

== ENCOUNTER 2020-11-17 02:12 | Inpatient (IN) ==
[2020-11-17 02:40] LABS: Basophils # 0.1 10*3/uL (0.0-0.2); Basophils % 0.6 % (0.0-0.8); Eosinophils # 0.3 10*3/uL (0.0-0.87); Eosinophils % 3.6 % (0.00-10.9); Hemoglobin 12.1 GM/DL (14.0-18.0); Immature Granulocytes % 0.4 %; Immature Granulocytes Absolute 0.04 #; Lymphocytes # 2.8 10*3/uL (1.4-4.0); Lymphocytes % 30.9 % (21.2-54.2); Mean Corpuscular HGB Conc 30.3 GM/DL (32-36); Mean Platelet Volume 9.4 FL (9.6-12.0); Neutrophils % 57.5 % (38.7-73.9); Platelet Count 235 T/CUMM (130-400); Red Blood Count 3.54 MC/CUMM (3.8-5.5); Red Cell Distribution Width 19.6 % (9.3-17.3); White Blood Count 8.9 T/CUMM (4-12)
[2020-11-17] MEDS ORDERED: ALBUTEROL/IPRATROPIUM 3 ML NEB RESP TX STA (02:50)
[2020-11-17] MEDS ORDERED: SODIUM CHLORIDE 0.9% 500 ML IV STA ×2 (02:50→04:04)
[2020-11-17] MEDS ORDERED: methylPREDNISolone SOD SUC 125 MG/2 ML VIAL IV STA (02:50)
[2020-11-17] MEDS ORDERED: ONDANSETRON 4 MG/2 ML VIAL IV STA (02:50)
[2020-11-17] MEDS ORDERED: PIPERACILLIN/TAZOBACTAM 3,375 MG in SODIUM CHLORIDE 0.9% 100 ML IV STA (02:50)
[2020-11-17 02:52] LABS: PT Patient Result 10.3 SECS (9.8-11.9); Partial Thromboplastin Time 29.2 SECS (23.9-33.8)
[2020-11-17 03:02] LABS: Albumin 3.3 G/DL (3.4-5.0); Bilirubin,Total 0.6 MG/DL (0.2-1.0); Calcium 9.8 MG/DL (8.5-10.1); Osmolality,Calculated 277.4 MOS/KG (273-304); Potassium 3.5 MMOL/L (3.5-5.1); Total Protein 10.3 G/DL (6.4-8.3)
[2020-11-17] MEDS ORDERED: DEXTROSE 50% 25 GM/50 ML VIAL IV PRN (04:03)
[2020-11-17] MEDS ORDERED: GLUCAGON 1 MG VIAL IM PRN (04:03)
[2020-11-17] MEDS ORDERED: ONDANSETRON 4 MG/2 ML VIAL IV PRN (04:03)
[2020-11-17] MEDS ORDERED: VANCOMYCIN INJ 1,000 MG in SODIUM CHLORIDE 0.9% 250 ML IV ONE (05:00)
[2020-11-17] MEDS: INSULIN REGULAR 100 UNIT/ML SUBCUT SCH ×3 (06:00→17:29)
[2020-11-17] MEDS ORDERED: PIPERACILLIN/TAZOBACTAM 3,375 MG in SODIUM CHLORIDE 0.9% 100 ML IV SCH (10:30)
[2020-11-18] MEDS: INSULIN REGULAR 100 UNIT/ML SUBCUT SCH ×4 (00:17→18:23)
[2020-11-18 05:25] LABS: Basophils % 0.4 % (0.0-0.8); Eosinophils # 0.1 10*3/uL (0.0-0.87); Eosinophils % 1.5 % (0.00-10.9); Hematocrit 32.6 VOL% (42.0-52.0); Immature Granulocytes % 0.3 %; Immature Granulocytes Absolute 0.02 #; Lymphocytes # 2.2 10*3/uL (1.4-4.0); Lymphocytes % 27.6 % (21.2-54.2); Mean Corpuscular HGB Conc 29.8 GM/DL (32-36); Mean Corpuscular Volume 114.8 FL (87-102); Mean Platelet Volume 9.8 FL (9.6-12.0); Monocytes % 7.9 % (1.7-12.7); Neutrophils % 62.3 % (38.7-73.9); Platelet Count 214 T/CUMM (130-400); Red Blood Count 2.84 MC/CUMM (3.8-5.5); White Blood Count 7.9 T/CUMM (4-12)
[2020-11-18 05:26] LABS: Calcium 9.2 MG/DL (8.5-10.1); Osmolality,Calculated 302.4 MOS/KG (273-304)
[2020-11-18 05:29] LABS: Albumin 2.9 G/DL (3.4-5.0); Bilirubin,Total 0.6 MG/DL (0.2-1.0); Calcium 9.4 MG/DL (8.5-10.1); Potassium 3.9 MMOL/L (3.5-5.1); Total Protein 8.4 G/DL (6.4-8.3)
[2020-11-18 05:32] LABS: Hemoglobin 9.7 GM/DL (14.0-18.0)
[2020-11-18] MEDS ORDERED: VANCOMYCIN INJ 1,250 MG in SODIUM CHLORIDE 0.9% 250 ML IV PRN (06:00)
[2020-11-18] MEDS: SODIUM CHLORIDE 0.9% 2,000 ML IV ONE ×2 (13:00→15:25)
[2020-11-18] MEDS ORDERED: VANCOMYCIN INJ 1,000 MG in SODIUM CHLORIDE 0.9% 250 ML IV SCH (14:30)
[2020-11-18] MEDS: SODIUM CHLORIDE 0.9% 1,000 ML IV SCH (15:25)
[2020-11-18] MEDS: HEPARIN 5,000 UNIT/1 ML VIAL SUBCUT SCH (18:23)
[2020-11-18] MEDS: levETIRAcetam 250 MG TABLET PO SCH (23:29)
[2020-11-18] MEDS: METOPROLOL TARTRATE 25 MG TABLET PEG SCH (23:30)
[2020-11-19] MEDS: INSULIN REGULAR 100 UNIT/ML SUBCUT SCH ×5 (00:18→23:57)
[2020-11-19] MEDS: HEPARIN 5,000 UNIT/1 ML VIAL SUBCUT SCH ×4 (01:50→23:59)
[2020-11-19 06:17] LABS: Basophils % 0.5 % (0.0-0.8); Eosinophils # 0.3 10*3/uL (0.0-0.87); Eosinophils % 4.3 % (0.00-10.9); Hematocrit 33.8 VOL% (42.0-52.0); Hemoglobin 10.4 GM/DL (14.0-18.0); Immature Granulocytes % 0.3 %; Immature Granulocytes Absolute 0.02 #; Lymphocytes % 35.1 % (21.2-54.2); Mean Corpuscular HGB Conc 30.8 GM/DL (32-36); Monocytes % 5.7 % (1.7-12.7); Neutrophils % 54.1 % (38.7-73.9); Platelet Count 222 T/CUMM (130-400); Red Blood Count 2.99 MC/CUMM (3.8-5.5); Red Cell Distribution Width 19.4 % (9.3-17.3); White Blood Count 5.8 T/CUMM (4-12)
[2020-11-19 06:38] LABS: Calcium 9.3 MG/DL (8.5-10.1); Osmolality,Calculated 273.4 MOS/KG (273-304); Potassium 4.3 MMOL/L (3.5-5.1)
[2020-11-19 06:55] LABS: Hypochromasia 1+; Macrocytosis 1+
[2020-11-19 06:56] LABS: Platelet Estimate Normal
[2020-11-19] MEDS ORDERED: VANCOMYCIN INJ 1,250 MG in SODIUM CHLORIDE 0.9% 250 ML IV ONE (09:00)
[2020-11-19] MEDS: METOPROLOL TARTRATE 25 MG TABLET PEG SCH ×2 (09:05→20:24)
[2020-11-19] MEDS: levETIRAcetam 250 MG TABLET PO SCH ×2 (09:05→20:24)
[2020-11-19] MEDS: SODIUM CHLORIDE 0.9% 1,000 ML IV SCH (11:17)
[2020-11-20 05:15] LABS: Calcium 8.9 MG/DL (8.5-10.1); Osmolality,Calculated 286.1 MOS/KG (273-304); Potassium 4.5 MMOL/L (3.5-5.1)
[2020-11-20] MEDS: INSULIN REGULAR 100 UNIT/ML SUBCUT SCH ×3 (05:22→17:49)
[2020-11-20] MEDS: METOPROLOL TARTRATE 25 MG TABLET PEG SCH ×2 (09:30→21:31)
[2020-11-20] MEDS: HEPARIN 5,000 UNIT/1 ML VIAL SUBCUT SCH ×2 (09:30→17:33)
[2020-11-20] MEDS: levETIRAcetam 250 MG TABLET PO SCH ×2 (09:30→21:31)
[2020-11-20] MEDS ORDERED: VANCOMYCIN INJ 1,000 MG in SODIUM CHLORIDE 0.9% 250 ML IV SCH (13:30)
[2020-11-21] MEDS: INSULIN REGULAR 100 UNIT/ML SUBCUT SCH ×4 (00:20→17:19)
[2020-11-21] MEDS: HEPARIN 5,000 UNIT/1 ML VIAL SUBCUT SCH ×3 (05:37→21:24)
[2020-11-21 05:50] LABS: Calcium 9.1 MG/DL (8.5-10.1); Osmolality,Calculated 279.9 MOS/KG (273-304); Potassium 4.8 MMOL/L (3.5-5.1)
[2020-11-21] MEDS ORDERED: HEPARIN 10,000 UNIT/10 ML VIAL IV PRN (12:28)
[2020-11-21] MEDS: levETIRAcetam 250 MG TABLET PO SCH ×2 (13:41→21:23)
[2020-11-21] MEDS: METOPROLOL TARTRATE 25 MG TABLET PEG SCH ×2 (13:41→21:23)
[2020-11-22] MEDS: INSULIN REGULAR 100 UNIT/ML SUBCUT SCH ×4 (01:54→17:33)
[2020-11-22] MEDS: HEPARIN 5,000 UNIT/1 ML VIAL SUBCUT SCH ×2 (06:13→16:46)
[2020-11-22 09:16] LABS: Basophils % 0.4 % (0.0-0.8); Eosinophils # 0.2 10*3/uL (0.0-0.87); Eosinophils % 4.7 % (0.00-10.9); Hematocrit 31.6 VOL% (42.0-52.0); Hemoglobin 9.4 GM/DL (14.0-18.0); Immature Granulocytes % 0.2 %; Immature Granulocytes Absolute 0.01 #; Lymphocytes # 1.8 10*3/uL (1.4-4.0); Lymphocytes % 37.8 % (21.2-54.2); Mean Corpuscular HGB Conc 29.7 GM/DL (32-36); Mean Corpuscular Volume 114.1 FL (87-102); Mean Platelet Volume 9.8 FL (9.6-12.0); Monocytes % 8.8 % (1.7-12.7); Neutrophils % 48.1 % (38.7-73.9); Platelet Count 231 T/CUMM (130-400); Red Blood Count 2.77 MC/CUMM (3.8-5.5); Red Cell Distribution Width 18.9 % (9.3-17.3); White Blood Count 4.9 T/CUMM (4-12)
[2020-11-22 09:25] LABS: Calcium 9.2 MG/DL (8.5-10.1); Osmolality,Calculated 274.5 MOS/KG (273-304); Potassium 4.8 MMOL/L (3.5-5.1)
[2020-11-22 09:34] LABS: Hypochromasia 1+; Microcytosis 1+; Platelet Estimate Adequate
[2020-11-22] MEDS: levETIRAcetam 250 MG TABLET PO SCH (10:36)
[2020-11-22] MEDS: METOPROLOL TARTRATE 25 MG TABLET PEG SCH (10:36)
[2020-11-22 16:08] VITALS: BP 151/95
== END 2020-11-22 19:47 | DRG 682 ==
LOC: EDUNIT# → EDBD → N.ED 02:12 → SUATTDRO 04:03 → N.EDINP 04:03 → N.5E 14:14
PROVIDERS: ADMIT Internal Medicine; ATTEND Family Medicine

== ENCOUNTER 2021-02-01 14:30 | Observation (INO) ==
[2021-02-01] MEDS ORDERED: levETIRAcetam 500 MG/5 ML VIAL IV ONE (14:44)
[2021-02-01 14:49] LABS: Basophils % 0.2 % (0.0-0.8); Eosinophils # 0.2 10*3/uL (0.0-0.87); Eosinophils % 1.9 % (0.00-10.9); Hematocrit 37.9 VOL% (42.0-52.0); Hemoglobin 11.7 GM/DL (14.0-18.0); Immature Granulocytes % 0.6 %; Immature Granulocytes Absolute 0.06 #; Lymphocytes # 0.4 10*3/uL (1.4-4.0); Lymphocytes % 4.2 % (21.2-54.2); Mean Corpuscular HGB Conc 30.9 GM/DL (32-36); Mean Corpuscular Volume 117.7 FL (87-102); Mean Platelet Volume 9.6 FL (9.6-12.0); Monocytes % 3.9 % (1.7-12.7); NRBC # 0.02 10*3/uL; Neutrophils % 89.2 % (38.7-73.9); Platelet Count 203 T/CUMM (130-400); Red Blood Count 3.22 MC/CUMM (3.8-5.5); Red Cell Distribution Width 15.9 % (9.3-17.3); White Blood Count 10.1 T/CUMM (4-12)
[2021-02-01 15:23] LABS: Albumin 3.4 G/DL (3.4-5.0); Bilirubin,Total 0.5 MG/DL (0.2-1.0); Calcium 9.2 MG/DL (8.5-10.1); Osmolality,Calculated 271.7 MOS/KG (273-304); Potassium 2.6 MMOL/L (3.5-5.1); Total Protein 8.8 G/DL (6.4-8.2)
[2021-02-01] MEDS ORDERED: SODIUM CHLORIDE 0.9% 500 ML IV STA (16:49)
[2021-02-01 17:13] LABS: Lymphocytes 7 % (20-55); Segmented Neutrophils 88 % (50-85); Total Cells Counted 100
[2021-02-01 17:14] LABS: Polychromasia 2+
[2021-02-01 17:15] LABS: Anisocytosis 1+; Hypochromasia 1+; Macrocytosis 2+; Platelet Estimate Normal; Stomatocytes 1+; Toxic Granulation 1+
[2021-02-01 17:33] LABS: ABG Base Excess 3.5 MMOL/L (-2.5-2.5); ABG HCO3 27.4 MMOL/L (20-26); ABG Oxygen Saturation 94.8 % (95-100); ABG PCO2 39.8 MM HG (35-48); ABG PO2 71.4 MM HG (80-95); ABG TCO2 24.7 MMOL/L (23-27)
[2021-02-01] MEDS ORDERED: ACETAMINOPHEN 325 MG TABLET PO PRN (18:03)
[2021-02-01] MEDS ORDERED: DEXTROSE 50% 25 GM/50 ML VIAL IV PRN (18:03)
[2021-02-01] MEDS ORDERED: ONDANSETRON 4 MG/2 ML VIAL IV PRN (18:03)
[2021-02-01] MEDS ORDERED: GLUCAGON 1 MG VIAL IM PRN (18:03)
[2021-02-01] MEDS ORDERED: LORazepam 2 MG/1 ML VIAL IV PRN (18:07)
[2021-02-01] MEDS ORDERED: POTASSIUM CHLORIDE 20 MEQ TABLET PO STA (18:14)
[2021-02-01] MEDS ORDERED: SODIUM CHLORIDE 0.9% 1,000 ML IV SCH (18:30)
[2021-02-01] MEDS: INSULIN REGULAR 100 UNIT/ML SUBCUT SCH ×2 (20:20→23:43)
[2021-02-01] MEDS: HEPARIN 5,000 UNIT/1 ML VIAL SUBCUT SCH (21:34)
[2021-02-01] MEDS: METOPROLOL TARTRATE 25 MG TABLET PEG SCH (21:34)
[2021-02-02] MEDS: HEPARIN 5,000 UNIT/1 ML VIAL SUBCUT SCH ×2 (04:01→12:20)
[2021-02-02] MEDS: INSULIN REGULAR 100 UNIT/ML SUBCUT SCH ×2 (06:00→12:52)
[2021-02-02 07:19] LABS: Basophils % 0.6 % (0.0-0.8); Eosinophils # 0.2 10*3/uL (0.0-0.87); Eosinophils % 3.5 % (0.00-10.9); Hematocrit 36.6 VOL% (42.0-52.0); Hemoglobin 11.3 GM/DL (14.0-18.0); Immature Granulocytes % 0.4 %; Immature Granulocytes Absolute 0.02 #; Lymphocytes # 1.8 10*3/uL (1.4-4.0); Mean Corpuscular HGB Conc 30.9 GM/DL (32-36); Mean Corpuscular Volume 117.3 FL (87-102); Mean Platelet Volume 9.6 FL (9.6-12.0); NRBC # 0.02 10*3/uL; Neutrophils % 52.5 % (38.7-73.9); Platelet Count 190 T/CUMM (130-400); Red Blood Count 3.12 MC/CUMM (3.8-5.5); White Blood Count 5.4 T/CUMM (4-12)
[2021-02-02 07:57] LABS: Calcium 9.6 MG/DL (8.5-10.1); Potassium 3.3 MMOL/L (3.5-5.1); Risk Ratio 2.78; Thyroid Stimulating Hormone 0.575 uIU/ml (0.358-3.74); VLDL CHOLESTEROL 30.2 MG/DL
[2021-02-02 08:08] LABS: Eosinophils 2 % (0-10); Lymphocytes 34 % (20-55); Segmented Neutrophils 54 % (50-85); Total Cells Counted 100
[2021-02-02 08:09] LABS: Platelet Estimate Normal
[2021-02-02 08:10] LABS: Anisocytosis 2+; Macrocytosis 2+; Polychromasia Few
[2021-02-02] MEDS ORDERED: SKIN HEALING OINT (AQUAPHOR) 50 GM TUBE TOP SCH (09:00)
[2021-02-02] MEDS ORDERED: MULTIVITAMIN (BEROCCA) TABLET PEG SCH (09:00)
[2021-02-02] MEDS ORDERED: ASPIRIN CHEW 81 MG TABLET PO SCH (09:00)
[2021-02-02] MEDS ORDERED: PANTOPRAZOLE 40 MG TABLET PO SCH (09:00)
[2021-02-02] MEDS: METOPROLOL TARTRATE 25 MG TABLET PEG SCH (09:56)
[2021-02-02 12:24] VITALS: BP 110/85
[2021-02-02] MEDS ORDERED: levETIRAcetam 500 MG TABLET PO SCH (21:00)
== END 2021-02-02 14:14 ==
LOC: EDBD → EDUNIT# → N.EDINP 14:30 → N.ED 14:30 → N.5E 18:36
PROVIDERS: ADMIT Internal Medicine; ATTEND Internal Medicine

== ENCOUNTER 2021-02-23 16:30 | Observation (INO) ==
[2021-02-23 18:03] LABS: Basophils % 0.5 % (0.0-0.8); Eosinophils # 0.2 10*3/uL (0.0-0.87); Eosinophils % 3.7 % (0.00-10.9); Hematocrit 42.4 VOL% (42.0-52.0); Hemoglobin 13.5 GM/DL (14.0-18.0); Immature Granulocytes % 0.3 %; Immature Granulocytes Absolute 0.02 #; Lymphocytes # 1.9 10*3/uL (1.4-4.0); Lymphocytes % 30.8 % (21.2-54.2); Mean Corpuscular HGB Conc 31.8 GM/DL (32-36); Mean Corpuscular Volume 111.3 FL (87-102); Mean Platelet Volume 10.3 FL (9.6-12.0); Monocytes % 6.5 % (1.7-12.7); Neutrophils % 58.2 % (38.7-73.9); Platelet Count 148 T/CUMM (130-400); Red Blood Count 3.81 MC/CUMM (3.8-5.5); White Blood Count 6.3 T/CUMM (4-12)
[2021-02-23 18:21] LABS: Calcium 10.5 MG/DL (8.5-10.1); Osmolality,Calculated 272.8 MOS/KG (273-304)
[2021-02-23] MEDS ORDERED: DEXTROSE 50% 25 GM/50 ML VIAL IV PRN (19:02)
[2021-02-23] MEDS ORDERED: GLUCAGON 1 MG VIAL IM PRN (19:02)
[2021-02-23] MEDS ORDERED: ONDANSETRON 4 MG/2 ML VIAL IV PRN (19:02)
[2021-02-23] MEDS: ACETAMINOPHEN 325 MG TABLET PO PRN (21:56)
[2021-02-23] MEDS: OMEPRAZOLE ODT 20 MG TABLET PEG SCH (21:56)
[2021-02-23] MEDS: levETIRAcetam LIQUID 100 MG/ML 30 ML/BOTTLE PO SCH (21:57)
[2021-02-23] MEDS: METOPROLOL TARTRATE 25 MG TABLET PEG SCH (21:57)
[2021-02-24 07:58] LABS: Basophils % 0.6 % (0.0-0.8); Eosinophils # 0.3 10*3/uL (0.0-0.87); Eosinophils % 5.7 % (0.00-10.9); Hematocrit 39.2 VOL% (42.0-52.0); Hemoglobin 12.5 GM/DL (14.0-18.0); Immature Granulocytes % 0.2 %; Immature Granulocytes Absolute 0.01 #; Lymphocytes % 36.3 % (21.2-54.2); Mean Corpuscular HGB Conc 31.9 GM/DL (32-36); Mean Corpuscular Volume 110.7 FL (87-102); Monocytes % 8.3 % (1.7-12.7); Neutrophils % 48.9 % (38.7-73.9); Platelet Count 144 T/CUMM (130-400); Red Blood Count 3.54 MC/CUMM (3.8-5.5); Red Cell Distribution Width 13.8 % (9.3-17.3); White Blood Count 5.4 T/CUMM (4-12)
[2021-02-24 08:11] LABS: Calcium 9.8 MG/DL (8.5-10.1); Osmolality,Calculated 277.8 MOS/KG (273-304); Potassium 3.4 MMOL/L (3.5-5.1)
[2021-02-24] MEDS: MULTIVITAMIN LIQUID (CENTRUM) 60 ML BOTTLE PEG SCH (08:57)
[2021-02-24] MEDS: FERROUS SULFATE 300 MG/5 ML UDCUP PEG SCH (08:57)
[2021-02-24] MEDS: SKIN HEALING OINT (AQUAPHOR) 50 GM TUBE TOP SCH (08:57)
[2021-02-24] MEDS: LIDOCAINE 5% PATCH TRANSDERM SCH (08:57)
[2021-02-24] MEDS: levETIRAcetam LIQUID 100 MG/ML 30 ML/BOTTLE PO SCH ×2 (08:57→21:58)
[2021-02-24] MEDS: OMEPRAZOLE ODT 20 MG TABLET PEG SCH ×2 (08:58→21:58)
[2021-02-24] MEDS: METOPROLOL TARTRATE 25 MG TABLET PEG SCH ×2 (08:58→21:58)
[2021-02-24] MEDS ORDERED: BUPIVACAINE MPF 0.25% 30 ML VIAL ONE (09:57)
[2021-02-24] MEDS ORDERED: HEPARIN 5,000 UNIT/1 ML VIAL ONE (09:57)
[2021-02-24] MEDS ORDERED: LIDOCAINE 1%/EPI INJ 20 ML VIAL ONE (09:57)
[2021-02-24] MEDS ORDERED: DEXMEDETOMIDINE 200 MCG/2 ML VIAL ONE (10:16)
[2021-02-24] MEDS ORDERED: LIDOCAINE 2% 5 ML VIAL ONE (10:16)
[2021-02-24] MEDS ORDERED: SODIUM CHLORIDE 0.9% 250 ML IV ONE (10:16)
[2021-02-24] MEDS ORDERED: propofoL 200 MG/20 ML VIAL IV ONE (10:16)
[2021-02-24] MEDS ORDERED: ALBUMIN 5% 12.5 GM/250 ML VIAL IV ONE ×2 (11:20→11:29)
[2021-02-24] MEDS ORDERED: HEPARIN 10,000 UNIT/10 ML VIAL IV SCH (14:30)
[2021-02-24] MEDS: ACETAMINOPHEN 325 MG TABLET PO PRN (21:57)
[2021-02-25 05:38] LABS: Basophils % 0.5 % (0.0-0.8); Eosinophils # 0.3 10*3/uL (0.0-0.87); Eosinophils % 3.4 % (0.00-10.9); Hematocrit 39.1 VOL% (42.0-52.0); Hemoglobin 12.7 GM/DL (14.0-18.0); Immature Granulocytes % 0.1 %; Immature Granulocytes Absolute 0.01 #; Lymphocytes # 1.6 10*3/uL (1.4-4.0); Lymphocytes % 21.9 % (21.2-54.2); Mean Corpuscular HGB Conc 32.5 GM/DL (32-36); Mean Corpuscular Volume 109.5 FL (87-102); Mean Platelet Volume 10.4 FL (9.6-12.0); Monocytes % 6.7 % (1.7-12.7); Neutrophils % 67.4 % (38.7-73.9); Platelet Count 137 T/CUMM (130-400); Red Blood Count 3.57 MC/CUMM (3.8-5.5); Red Cell Distribution Width 13.9 % (9.3-17.3)
[2021-02-25 05:57] LABS: Osmolality,Calculated 279.2 MOS/KG (273-304); Potassium 3.4 MMOL/L (3.5-5.1)
[2021-02-25 05:59] LABS: White Blood Count 7.3 T/CUMM (4-12)
[2021-02-25 06:21] LABS: Hypochromasia Slight; Microcytosis Slight
[2021-02-25] MEDS: OMEPRAZOLE ODT 20 MG TABLET PEG SCH ×2 (08:11→21:30)
[2021-02-25] MEDS: METOPROLOL TARTRATE 25 MG TABLET PEG SCH ×2 (08:11→21:30)
[2021-02-25] MEDS: FERROUS SULFATE 300 MG/5 ML UDCUP PEG SCH (08:11)
[2021-02-25] MEDS: LIDOCAINE 5% PATCH TRANSDERM SCH (08:12)
[2021-02-25] MEDS: levETIRAcetam LIQUID 100 MG/ML 30 ML/BOTTLE PO SCH ×2 (08:12→21:31)
[2021-02-25] MEDS: MULTIVITAMIN LIQUID (CENTRUM) 60 ML BOTTLE PEG SCH (08:12)
[2021-02-25] MEDS: SKIN HEALING OINT (AQUAPHOR) 50 GM TUBE TOP SCH (08:12)
[2021-02-25] MEDS ORDERED: POTASSIUM CHLORIDE 20 MEQ/15 ML UDCUP PER TUBE PRN (17:30)
[2021-02-25] MEDS: POTASSIUM CHLORIDE 20 MEQ/15 ML UDCUP PER TUBE PRN ×3 (18:02→23:47)
[2021-02-25] MEDS ORDERED: MAGNESIUM SULF RIDER 4 GM/100 ML PREMIX IV PRN (18:13)
[2021-02-25] MEDS ORDERED: MAGNESIUM SULF RIDER 2 GM/50 ML PREMIX IV PRN (18:13)
[2021-02-26 05:25] LABS: Basophils % 0.5 % (0.0-0.8); Eosinophils # 0.4 10*3/uL (0.0-0.87); Eosinophils % 5.9 % (0.00-10.9); Hematocrit 37.5 VOL% (42.0-52.0); Hemoglobin 12.1 GM/DL (14.0-18.0); Immature Granulocytes % 0.2 %; Immature Granulocytes Absolute 0.01 #; Lymphocytes # 1.9 10*3/uL (1.4-4.0); Lymphocytes % 29.4 % (21.2-54.2); Mean Corpuscular HGB Conc 32.3 GM/DL (32-36); Mean Corpuscular Volume 110.3 FL (87-102); Mean Platelet Volume 10.7 FL (9.6-12.0); Monocytes % 7.8 % (1.7-12.7); Neutrophils % 56.2 % (38.7-73.9); Platelet Count 118 T/CUMM (130-400); White Blood Count 6.6 T/CUMM (4-12)
[2021-02-26 05:46] LABS: Hypochromasia 1+; Microcytosis 1+
[2021-02-26 05:46] LABS: Calcium 9.9 MG/DL (8.5-10.1); Osmolality,Calculated 297.7 MOS/KG (273-304)
[2021-02-26] MEDS: FERROUS SULFATE 300 MG/5 ML UDCUP PEG SCH (09:55)
[2021-02-26] MEDS: levETIRAcetam LIQUID 100 MG/ML 30 ML/BOTTLE PO SCH ×2 (09:55→20:40)
[2021-02-26] MEDS: MULTIVITAMIN LIQUID (CENTRUM) 60 ML BOTTLE PEG SCH (09:55)
[2021-02-26] MEDS: OMEPRAZOLE ODT 20 MG TABLET PEG SCH ×2 (09:56→20:39)
[2021-02-26] MEDS: METOPROLOL TARTRATE 25 MG TABLET PEG SCH ×2 (09:56→20:39)
[2021-02-26] MEDS: LIDOCAINE 5% PATCH TRANSDERM SCH (09:58)
[2021-02-26] MEDS: SKIN HEALING OINT (AQUAPHOR) 50 GM TUBE TOP SCH (09:58)
[2021-02-26] MEDS: ZINC OXIDE PASTE 113 GM TUBE TOP SCH (20:40)
[2021-02-27] MEDS: SKIN HEALING OINT (AQUAPHOR) 50 GM TUBE TOP SCH (08:26)
[2021-02-27] MEDS: LIDOCAINE 5% PATCH TRANSDERM SCH (08:26)
[2021-02-27] MEDS: ZINC OXIDE PASTE 113 GM TUBE TOP SCH (08:26)
[2021-02-27] MEDS: OMEPRAZOLE ODT 20 MG TABLET PEG SCH (08:27)
[2021-02-27] MEDS: levETIRAcetam LIQUID 100 MG/ML 30 ML/BOTTLE PO SCH (08:27)
[2021-02-27] MEDS: FERROUS SULFATE 300 MG/5 ML UDCUP PEG SCH (08:27)
[2021-02-27] MEDS: MULTIVITAMIN LIQUID (CENTRUM) 60 ML BOTTLE PEG SCH (08:28)
[2021-02-27] MEDS ORDERED: METOPROLOL TARTRATE 25 MG TABLET PEG SCH (09:00)
[2021-02-27 14:12] VITALS: BP 134/84
== END 2021-02-27 15:15 ==
LOC: EDBD → EDUNIT# → N.EDINP 16:30 → N.ED 16:30 → SUATTDRO 19:02 → N.3E 20:05
PROVIDERS: ADMIT Internal Medicine; ATTEND Emergency Medicine

== ENCOUNTER 2021-03-10 12:57 | Inpatient (IN) ==
[2021-03-10 13:31] LABS: Basophils % 0.1 % (0.0-0.8); Hematocrit 29.7 VOL% (42.0-52.0); Hemoglobin 9.5 GM/DL (14.0-18.0); Immature Granulocytes % 0.7 %; Lymphocytes % 6.4 % (21.2-54.2); Mean Corpuscular Volume 111.7 FL (87-102); Mean Platelet Volume 10.5 FL (9.6-12.0); Monocytes % 6.8 % (1.7-12.7); Platelet Count 148 T/CUMM (130-400); Red Blood Count 2.66 MC/CUMM (3.8-5.5); Red Cell Distribution Width 14.7 % (9.3-17.3); White Blood Count 15.1 T/CUMM (4-12)
[2021-03-10 13:37] LABS: Calcium 9.3 MG/DL (8.5-10.1); Osmolality,Calculated 277.2 MOS/KG (273-304); Potassium 2.6 MMOL/L (3.5-5.1)
[2021-03-10] MEDS ORDERED: MEROPENEM 500 MG in SODIUM CHLORIDE 0.9% 100 ML IV STA (13:41)
[2021-03-10] MEDS ORDERED: ACETAMINOPHEN 650 MG SUPP RECTAL STA (13:56)
[2021-03-10 14:03] LABS: Band Neutrophils 9 % (0-10); Lymphocytes 4 % (20-55); Segmented Neutrophils 81 % (50-85); Total Cells Counted 100
[2021-03-10 14:04] LABS: Anisocytosis 1+; Macrocytosis 1+; Microcytosis Slight; Platelet Estimate Adequate; Polychromasia Slight; Toxic Granulation 1+
[2021-03-10 14:05] LABS: Dohle Bodies 1+
[2021-03-10 14:18] LABS: Albumin 2.9 G/DL (3.4-5.0); Bilirubin,Total 0.6 MG/DL (0.2-1.0); Calcium 9.2 MG/DL (8.5-10.1); Osmolality,Calculated 275.4 MOS/KG (273-304); Potassium 2.6 MMOL/L (3.5-5.1); Total Protein 8.8 G/DL (6.4-8.2)
[2021-03-10] MEDS ORDERED: SODIUM CHLORIDE 0.9% 500 ML IV STA (14:22)
[2021-03-10] MEDS ORDERED: HEPARIN LOCK FLUSH 500 UNIT/5 ML SYRINGE IV ONE ×2 (14:41→19:15)
[2021-03-10] MEDS ORDERED: VANCOMYCIN INJ 500 MG in SODIUM CHLORIDE 0.9% 100 ML IV PRN (15:59)
[2021-03-10] MEDS ORDERED: DEXTROSE 50% 25 GM/50 ML VIAL IV PRN (16:28)
[2021-03-10] MEDS ORDERED: GLUCAGON 1 MG VIAL IM PRN (16:28)
[2021-03-10] MEDS ORDERED: SODIUM CHLORIDE 0.9% 250 ML IV ONE (17:31)
[2021-03-10] MEDS ORDERED: VANCOMYCIN INJ 1,750 MG in SODIUM CHLORIDE 0.9% 500 ML IV ONE (18:00)
[2021-03-10] MEDS: INSULIN LISPRO 100 UNIT/ML SUBCUT SCH (18:45)
[2021-03-10] MEDS ORDERED: HEPARIN 10,000 UNIT/10 ML VIAL IV PRN (19:09)
[2021-03-10] MEDS: levETIRAcetam LIQUID 100 MG/ML 30 ML/BOTTLE NG SCH (23:29)
[2021-03-10] MEDS: OMEPRAZOLE ODT 20 MG TABLET PEG SCH (23:31)
[2021-03-11] MEDS: INSULIN LISPRO 100 UNIT/ML SUBCUT SCH ×4 (01:49→17:58)
[2021-03-11] MEDS: ACETAMINOPHEN 325 MG/10.15 ML UDCUP PEG PRN ×2 (01:53→21:34)
[2021-03-11] MEDS ORDERED: METOPROLOL TARTRATE 5 MG/5 ML VIAL IV ONE (02:28)
[2021-03-11] MEDS: POTASSIUM CHLORIDE 20 MEQ/15 ML UDCUP PER TUBE PRN ×4 (02:46→21:30)
[2021-03-11 06:29] LABS: Basophils % 0.2 % (0.0-0.8); Eosinophils % 0.1 % (0.00-10.9); Hematocrit 27.5 VOL% (42.0-52.0); Hemoglobin 8.3 GM/DL (14.0-18.0); Immature Granulocytes % 0.9 %; Immature Granulocytes Absolute 0.09 #; Lymphocytes # 0.8 10*3/uL (1.4-4.0); Lymphocytes % 7.5 % (21.2-54.2); Mean Corpuscular HGB Conc 30.2 GM/DL (32-36); Mean Corpuscular Volume 116.5 FL (87-102); Mean Platelet Volume 10.8 FL (9.6-12.0); Monocytes % 10.1 % (1.7-12.7); Neutrophils % 81.2 % (38.7-73.9); Platelet Count 147 T/CUMM (130-400); Red Blood Count 2.36 MC/CUMM (3.8-5.5); Red Cell Distribution Width 14.8 % (9.3-17.3); White Blood Count 10.1 T/CUMM (4-12)
[2021-03-11 06:45] LABS: Calcium 9.3 MG/DL (8.5-10.1); Potassium 3.4 MMOL/L (3.5-5.1)
[2021-03-11] MEDS ORDERED: POTASSIUM CHLORIDE 20 MEQ TABLET PO ONE (06:56)
[2021-03-11 07:04] LABS: Band Neutrophils 2 % (0-10); Lymphocytes 7 % (20-55); Platelet Estimate Normal; Segmented Neutrophils 86 % (50-85); Total Cells Counted 100
[2021-03-11 07:05] LABS: Hypochromasia Slight; Macrocytosis Slight
[2021-03-11 07:38] LABS: Thyroid Stimulating Hormone 0.855 uIU/ml (0.358-3.74)
[2021-03-11] MEDS ORDERED: SODIUM CHLORIDE 0.45% 1,000 ML IV SCH ×2 (09:30→13:30)
[2021-03-11] MEDS: ASPIRIN CHEW 81 MG TABLET PO SCH (09:30)
[2021-03-11] MEDS: levETIRAcetam LIQUID 100 MG/ML 30 ML/BOTTLE NG SCH ×2 (09:31→21:29)
[2021-03-11] MEDS: MULTIVITAMIN LIQUID (CENTRUM) 60 ML BOTTLE PEG SCH (09:31)
[2021-03-11] MEDS: ASCORBIC ACID 500 MG TABLET PO SCH ×2 (09:31→21:29)
[2021-03-11] MEDS: OMEPRAZOLE ODT 20 MG TABLET PEG SCH ×2 (09:31→21:29)
[2021-03-11] MEDS: FERROUS SULFATE 300 MG/5 ML UDCUP PEG SCH (09:31)
[2021-03-11] MEDS: SKIN HEALING OINT (AQUAPHOR) 50 GM TUBE TOP SCH (09:31)
[2021-03-11] MEDS ORDERED: DIGOXIN 0.5 MG/2 ML AMP IV ONE ×2 (09:55→13:32)
[2021-03-11] MEDS: MEROPENEM 500 MG in SODIUM CHLORIDE 0.9% 100 ML IV SCH (13:55)
[2021-03-11] MEDS: METOPROLOL TARTRATE 25 MG TABLET NG SCH ×2 (13:56→21:28)
[2021-03-11] MEDS: ROSUVASTATIN 20 MG TABLET NG SCH (21:31)
[2021-03-12] MEDS: INSULIN LISPRO 100 UNIT/ML SUBCUT SCH ×5 (00:30→23:46)
[2021-03-12 06:53] LABS: Basophils % 0.3 % (0.0-0.8); Eosinophils # 0.2 10*3/uL (0.0-0.87); Eosinophils % 2.4 % (0.00-10.9); Hematocrit 24.4 VOL% (42.0-52.0); Hemoglobin 7.7 GM/DL (14.0-18.0); Immature Granulocytes % 0.9 %; Immature Granulocytes Absolute 0.08 #; Lymphocytes # 0.7 10*3/uL (1.4-4.0); Lymphocytes % 7.6 % (21.2-54.2); Mean Corpuscular HGB Conc 31.6 GM/DL (32-36); Mean Platelet Volume 10.2 FL (9.6-12.0); Monocytes % 9.3 % (1.7-12.7); Neutrophils % 79.5 % (38.7-73.9); Platelet Count 142 T/CUMM (130-400); Red Blood Count 2.14 MC/CUMM (3.8-5.5); Red Cell Distribution Width 14.6 % (9.3-17.3); White Blood Count 8.8 T/CUMM (4-12)
[2021-03-12 07:11] LABS: Calcium 9.5 MG/DL (8.5-10.1); Osmolality,Calculated 301.5 MOS/KG (273-304); Potassium 3.7 MMOL/L (3.5-5.1)
[2021-03-12 07:14] LABS: Eosinophils 5 % (0-10); Hypochromasia 1+; Lymphocytes 5 % (20-55); Microcytosis 1+; Platelet Estimate Adequate; Segmented Neutrophils 82 % (50-85); Total Cells Counted 100
[2021-03-12] MEDS: ASPIRIN CHEW 81 MG TABLET PO SCH (09:30)
[2021-03-12] MEDS: SKIN HEALING OINT (AQUAPHOR) 50 GM TUBE TOP SCH (09:30)
[2021-03-12] MEDS: MULTIVITAMIN LIQUID (CENTRUM) 60 ML BOTTLE PEG SCH (09:31)
[2021-03-12] MEDS: FERROUS SULFATE 300 MG/5 ML UDCUP PEG SCH (09:31)
[2021-03-12] MEDS: levETIRAcetam LIQUID 100 MG/ML 30 ML/BOTTLE NG SCH ×2 (09:31→20:28)
[2021-03-12] MEDS: ASCORBIC ACID 500 MG TABLET PO SCH ×2 (09:32→20:28)
[2021-03-12] MEDS: METOPROLOL TARTRATE 25 MG TABLET NG SCH ×2 (09:32→20:28)
[2021-03-12] MEDS: OMEPRAZOLE ODT 20 MG TABLET PEG SCH ×2 (09:32→20:28)
[2021-03-12] MEDS ORDERED: POTASSIUM CHLORIDE 20 MEQ/15 ML UDCUP NG ONE (11:45)
[2021-03-12] MEDS: MEROPENEM 500 MG in SODIUM CHLORIDE 0.9% 100 ML IV SCH (13:41)
[2021-03-12] MEDS ORDERED: VANCOMYCIN INJ 500 MG in SODIUM CHLORIDE 0.9% 100 ML IV ONE (17:00)
[2021-03-12] MEDS: COAL TAR TOP SCH (17:13)
[2021-03-12] MEDS: ROSUVASTATIN 20 MG TABLET NG SCH (20:28)
[2021-03-12] MEDS: LIDOCAINE 5% PATCH TRANSDERM SCH (20:29)
[2021-03-13 05:15] LABS: Basophils % 0.1 % (0.0-0.8); Eosinophils # 0.3 10*3/uL (0.0-0.87); Eosinophils % 3.2 % (0.00-10.9); Hematocrit 26.7 VOL% (42.0-52.0); Hemoglobin 8.4 GM/DL (14.0-18.0); Immature Granulocytes % 0.9 %; Immature Granulocytes Absolute 0.07 #; Lymphocytes % 12.9 % (21.2-54.2); Mean Corpuscular HGB Conc 31.5 GM/DL (32-36); Mean Corpuscular Volume 113.1 FL (87-102); Mean Platelet Volume 10.7 FL (9.6-12.0); Monocytes % 8.1 % (1.7-12.7); Neutrophils % 74.8 % (38.7-73.9); Platelet Count 163 T/CUMM (130-400); Red Blood Count 2.36 MC/CUMM (3.8-5.5); Red Cell Distribution Width 14.7 % (9.3-17.3); White Blood Count 7.7 T/CUMM (4-12)
[2021-03-13 05:38] LABS: Calcium 9.9 MG/DL (8.5-10.1); Osmolality,Calculated 304.7 MOS/KG (273-304); Potassium 4.1 MMOL/L (3.5-5.1)
[2021-03-13 05:42] LABS: Calcium 10.1 MG/DL (8.5-10.1); Osmolality,Calculated 304.7 MOS/KG (273-304); Potassium 4.1 MMOL/L (3.5-5.1)
[2021-03-13] MEDS: INSULIN LISPRO 100 UNIT/ML SUBCUT SCH ×4 (05:43→23:53)
[2021-03-13 05:46] LABS: Band Neutrophils 1 % (0-10); Eosinophils 2 % (0-10); Lymphocytes 16 % (20-55); Platelet Estimate Normal; Segmented Neutrophils 80 % (50-85); Total Cells Counted 100
[2021-03-13 05:47] LABS: Hypochromasia Slight; Macrocytosis Slight
[2021-03-13] MEDS: ACETAMINOPHEN 325 MG/10.15 ML UDCUP PEG PRN (10:32)
[2021-03-13] MEDS: LIDOCAINE 5% PATCH TRANSDERM SCH (10:33)
[2021-03-13] MEDS ORDERED: METOPROLOL TARTRATE 25 MG TABLET PO ONE (11:16)
[2021-03-13] MEDS ORDERED: DIGOXIN 0.5 MG/2 ML AMP IV ONE (12:52)
[2021-03-13] MEDS: ASCORBIC ACID 500 MG TABLET PO SCH ×2 (13:31→20:27)
[2021-03-13] MEDS: OMEPRAZOLE ODT 20 MG TABLET PEG SCH ×2 (13:31→20:28)
[2021-03-13] MEDS: FERROUS SULFATE 300 MG/5 ML UDCUP PEG SCH (13:31)
[2021-03-13] MEDS: ASPIRIN CHEW 81 MG TABLET PO SCH (13:32)
[2021-03-13] MEDS: MULTIVITAMIN LIQUID (CENTRUM) 60 ML BOTTLE PEG SCH (13:32)
[2021-03-13] MEDS: SKIN HEALING OINT (AQUAPHOR) 50 GM TUBE TOP SCH (13:33)
[2021-03-13] MEDS: METOPROLOL TARTRATE 25 MG TABLET NG SCH ×2 (13:42→20:27)
[2021-03-13] MEDS: levETIRAcetam LIQUID 100 MG/ML 30 ML/BOTTLE NG SCH ×2 (14:30→20:27)
[2021-03-13] MEDS: MEROPENEM 500 MG in SODIUM CHLORIDE 0.9% 100 ML IV SCH (16:25)
[2021-03-13] MEDS: ALBUTEROL/IPRATROPIUM 3 ML NEB RESP TX PRN (18:21)
[2021-03-13] MEDS: ROSUVASTATIN 20 MG TABLET NG SCH (20:27)
[2021-03-14 05:56] LABS: Basophils % 0.1 % (0.0-0.8); Eosinophils # 0.2 10*3/uL (0.0-0.87); Eosinophils % 3.2 % (0.00-10.9); Hematocrit 22.4 VOL% (42.0-52.0); Hemoglobin 7.1 GM/DL (14.0-18.0); Immature Granulocytes % 1.1 %; Immature Granulocytes Absolute 0.08 #; Lymphocytes # 1.4 10*3/uL (1.4-4.0); Lymphocytes % 18.5 % (21.2-54.2); Mean Corpuscular HGB Conc 31.7 GM/DL (32-36); Mean Corpuscular Volume 113.1 FL (87-102); Mean Platelet Volume 10.3 FL (9.6-12.0); Monocytes % 12.3 % (1.7-12.7); Neutrophils % 64.8 % (38.7-73.9); Platelet Count 160 T/CUMM (130-400); Red Blood Count 1.98 MC/CUMM (3.8-5.5); Red Cell Distribution Width 14.7 % (9.3-17.3); White Blood Count 7.4 T/CUMM (4-12)
[2021-03-14] MEDS: INSULIN LISPRO 100 UNIT/ML SUBCUT SCH ×3 (05:58→17:07)
[2021-03-14 06:19] LABS: Calcium 9.7 MG/DL (8.5-10.1); Osmolality,Calculated 295.8 MOS/KG (273-304); Potassium 4.5 MMOL/L (3.5-5.1)
[2021-03-14 06:31] LABS: Hypochromasia 1+; Macrocytosis 1+
[2021-03-14 06:32] LABS: Platelet Estimate Adequate; Polychromasia Slight
[2021-03-14] MEDS ORDERED: LIDOCAINE 1%/EPI INJ 20 ML VIAL ONE (09:23)
[2021-03-14] MEDS ORDERED: propofoL 200 MG/20 ML VIAL IV ONE (09:31)
[2021-03-14] MEDS ORDERED: LIDOCAINE 2% 5 ML VIAL ONE (09:31)
[2021-03-14] MEDS ORDERED: SODIUM CHLORIDE 0.9% 250 ML IV SCH (10:00)
[2021-03-14] MEDS: LIDOCAINE 5% PATCH TRANSDERM SCH (11:19)
[2021-03-14] MEDS: levETIRAcetam LIQUID 100 MG/ML 30 ML/BOTTLE NG SCH ×2 (11:20→21:35)
[2021-03-14] MEDS: MULTIVITAMIN LIQUID (CENTRUM) 60 ML BOTTLE PEG SCH (11:20)
[2021-03-14] MEDS: METOPROLOL TARTRATE 25 MG TABLET NG SCH ×2 (11:21→21:35)
[2021-03-14] MEDS: OMEPRAZOLE ODT 20 MG TABLET PEG SCH ×2 (11:22→21:35)
[2021-03-14] MEDS: ASCORBIC ACID 500 MG TABLET PO SCH ×2 (11:22→21:35)
[2021-03-14] MEDS: ASPIRIN CHEW 81 MG TABLET PO SCH (11:22)
[2021-03-14] MEDS: SKIN HEALING OINT (AQUAPHOR) 50 GM TUBE TOP SCH (11:22)
[2021-03-14] MEDS: FERROUS SULFATE 300 MG/5 ML UDCUP PEG SCH (11:23)
[2021-03-14] MEDS: MEROPENEM 500 MG in SODIUM CHLORIDE 0.9% 100 ML IV SCH (12:14)
[2021-03-14] MEDS: COAL TAR TOP SCH (14:47)
[2021-03-14] MEDS ORDERED: VANCOMYCIN INJ 500 MG in SODIUM CHLORIDE 0.9% 100 ML IV ONE (17:00)
[2021-03-14] MEDS: ROSUVASTATIN 20 MG TABLET NG SCH (21:35)
[2021-03-15 05:04] LABS: Basophils % 0.3 % (0.0-0.8); Eosinophils # 0.2 10*3/uL (0.0-0.87); Eosinophils % 3.5 % (0.00-10.9); Hematocrit 21.9 VOL% (42.0-52.0); Hemoglobin 6.8 GM/DL (14.0-18.0); Immature Granulocytes % 1.3 %; Immature Granulocytes Absolute 0.08 #; Lymphocytes # 1.4 10*3/uL (1.4-4.0); Lymphocytes % 23.2 % (21.2-54.2); Mean Corpuscular HGB Conc 31.1 GM/DL (32-36); Mean Corpuscular Volume 116.5 FL (87-102); Mean Platelet Volume 9.9 FL (9.6-12.0); Monocytes % 10.1 % (1.7-12.7); Neutrophils % 61.6 % (38.7-73.9); Platelet Count 163 T/CUMM (130-400); Red Blood Count 1.88 MC/CUMM (3.8-5.5); Red Cell Distribution Width 14.9 % (9.3-17.3); White Blood Count 6.2 T/CUMM (4-12)
[2021-03-15 05:27] LABS: Eosinophils 5 % (0-10); Hypochromasia 1+; Lymphocytes 27 % (20-55); Macrocytosis 1+; Platelet Estimate Normal; Segmented Neutrophils 63 % (50-85); Total Cells Counted 100
[2021-03-15 05:31] LABS: Osmolality,Calculated 306.5 MOS/KG (273-304); Potassium 4.1 MMOL/L (3.5-5.1)
[2021-03-15] MEDS: INSULIN LISPRO 100 UNIT/ML SUBCUT SCH ×4 (07:03→17:31)
[2021-03-15] MEDS: ASPIRIN CHEW 81 MG TABLET PO SCH (09:33)
[2021-03-15] MEDS: METOPROLOL TARTRATE 25 MG TABLET NG SCH ×2 (09:33→21:30)
[2021-03-15] MEDS: LIDOCAINE 5% PATCH TRANSDERM SCH (09:33)
[2021-03-15] MEDS: ASCORBIC ACID 500 MG TABLET PO SCH ×2 (09:33→21:31)
[2021-03-15] MEDS: levETIRAcetam LIQUID 100 MG/ML 30 ML/BOTTLE NG SCH ×2 (09:34→21:30)
[2021-03-15] MEDS: OMEPRAZOLE ODT 20 MG TABLET PEG SCH ×2 (09:34→21:30)
[2021-03-15] MEDS: FERROUS SULFATE 300 MG/5 ML UDCUP PEG SCH (09:34)
[2021-03-15] MEDS: MULTIVITAMIN LIQUID (CENTRUM) 60 ML BOTTLE PEG SCH (09:35)
[2021-03-15] MEDS: SKIN HEALING OINT (AQUAPHOR) 50 GM TUBE TOP SCH (09:36)
[2021-03-15] MEDS ORDERED: SODIUM CHLORIDE 0.9% 1,000 ML IV PRN (09:52)
[2021-03-15] MEDS: ACETAMINOPHEN 325 MG/10.15 ML UDCUP PEG PRN (11:42)
[2021-03-15] MEDS: MEROPENEM 500 MG in SODIUM CHLORIDE 0.9% 100 ML IV SCH (14:22)
[2021-03-15] MEDS ORDERED: SODIUM PHOSPHATE INJ 15 MMOL in SODIUM CHLORIDE 0.9% 250 ML IV ONE (15:30)
[2021-03-15 18:29] LABS: Basophils % 0.3 % (0.0-0.8); Eosinophils # 0.3 10*3/uL (0.0-0.87); Eosinophils % 3.7 % (0.00-10.9); Hematocrit 27.1 VOL% (42.0-52.0); Hemoglobin 8.2 GM/DL (14.0-18.0); Immature Granulocytes % 2.2 %; Immature Granulocytes Absolute 0.17 #; Lymphocytes # 1.5 10*3/uL (1.4-4.0); Lymphocytes % 19.5 % (21.2-54.2); Mean Corpuscular HGB Conc 30.3 GM/DL (32-36); Mean Corpuscular Volume 116.3 FL (87-102); Mean Platelet Volume 9.5 FL (9.6-12.0); Monocytes % 8.9 % (1.7-12.7); Neutrophils % 65.4 % (38.7-73.9); Platelet Count 199 T/CUMM (130-400); Red Blood Count 2.33 MC/CUMM (3.8-5.5); Red Cell Distribution Width 16.7 % (9.3-17.3); White Blood Count 7.8 T/CUMM (4-12)
[2021-03-15] MEDS: ROSUVASTATIN 20 MG TABLET NG SCH (21:30)
[2021-03-16] MEDS: INSULIN LISPRO 100 UNIT/ML SUBCUT SCH ×5 (01:18→23:54)
[2021-03-16 06:16] LABS: Calcium 9.9 MG/DL (8.5-10.1); Osmolality,Calculated 312.4 MOS/KG (273-304); Potassium 4.2 MMOL/L (3.5-5.1)
[2021-03-16] MEDS: levETIRAcetam LIQUID 100 MG/ML 30 ML/BOTTLE NG SCH ×2 (09:09→20:37)
[2021-03-16] MEDS: MULTIVITAMIN LIQUID (CENTRUM) 60 ML BOTTLE PEG SCH (09:11)
[2021-03-16] MEDS: FERROUS SULFATE 300 MG/5 ML UDCUP PEG SCH (09:12)
[2021-03-16] MEDS: ASCORBIC ACID 500 MG TABLET PO SCH ×2 (09:12→20:38)
[2021-03-16] MEDS: ASPIRIN CHEW 81 MG TABLET PO SCH (09:12)
[2021-03-16] MEDS: LIDOCAINE 5% PATCH TRANSDERM SCH (09:14)
[2021-03-16] MEDS: OMEPRAZOLE ODT 20 MG TABLET PEG SCH ×2 (09:18→20:38)
[2021-03-16] MEDS: METOPROLOL TARTRATE 25 MG TABLET NG SCH ×2 (09:18→20:38)
[2021-03-16] MEDS ORDERED: fentaNYL 100 MCG/2 ML VIAL IV ONE (11:25)
[2021-03-16] MEDS ORDERED: MIDAZOLAM 2 MG/2 ML VIAL IV ONE (11:25)
[2021-03-16] MEDS ORDERED: SODIUM CHLORIDE 0.45% 1,000 ML IV SCH (11:30)
[2021-03-16] MEDS ORDERED: HEPARIN LOCK FLUSH 500 UNIT/5 ML SYRINGE IV ONE (12:14)
[2021-03-16] MEDS: SKIN HEALING OINT (AQUAPHOR) 50 GM TUBE TOP SCH (12:17)
[2021-03-16] MEDS: MEROPENEM 500 MG in SODIUM CHLORIDE 0.9% 100 ML IV SCH (13:28)
[2021-03-16] MEDS ORDERED: TISSUE ADHESIVE 1 EACH APPLICATOR TOP ONE (13:39)
[2021-03-16] MEDS: COAL TAR TOP SCH (16:24)
[2021-03-16] MEDS ORDERED: HEPARIN LOCK FLUSH 500 UNIT/5 ML SYRINGE IV PRN (16:32)
[2021-03-16] MEDS ORDERED: HEPARIN 10,000 UNIT/10 ML VIAL IV PRN (17:08)
[2021-03-16] MEDS: ALBUTEROL/IPRATROPIUM 3 ML NEB RESP TX PRN (19:49)
[2021-03-16] MEDS: ROSUVASTATIN 20 MG TABLET NG SCH (20:38)
[2021-03-16] MEDS: ACETAMINOPHEN 325 MG/10.15 ML UDCUP PEG PRN (21:01)
[2021-03-17] MEDS: INSULIN LISPRO 100 UNIT/ML SUBCUT SCH ×3 (08:03→18:15)
[2021-03-17 08:24] LABS: Basophils % 0.2 % (0.0-0.8); Eosinophils # 0.3 10*3/uL (0.0-0.87); Eosinophils % 2.9 % (0.00-10.9); Hematocrit 26.8 VOL% (42.0-52.0); Hemoglobin 8.5 GM/DL (14.0-18.0); Immature Granulocytes % 1.3 %; Immature Granulocytes Absolute 0.11 #; Lymphocytes # 1.4 10*3/uL (1.4-4.0); Lymphocytes % 16.5 % (21.2-54.2); Mean Corpuscular HGB Conc 31.7 GM/DL (32-36); Mean Corpuscular Volume 110.7 FL (87-102); Mean Platelet Volume 9.7 FL (9.6-12.0); Monocytes % 6.4 % (1.7-12.7); Neutrophils % 72.7 % (38.7-73.9); Platelet Count 240 T/CUMM (130-400); Red Blood Count 2.42 MC/CUMM (3.8-5.5); Red Cell Distribution Width 16.4 % (9.3-17.3); White Blood Count 8.7 T/CUMM (4-12)
[2021-03-17] MEDS: MULTIVITAMIN LIQUID (CENTRUM) 60 ML BOTTLE PEG SCH (08:36)
[2021-03-17] MEDS: ASPIRIN CHEW 81 MG TABLET PO SCH (08:36)
[2021-03-17] MEDS: LIDOCAINE 5% PATCH TRANSDERM SCH (08:37)
[2021-03-17] MEDS: levETIRAcetam LIQUID 100 MG/ML 30 ML/BOTTLE NG SCH ×2 (08:38→21:37)
[2021-03-17] MEDS: FERROUS SULFATE 300 MG/5 ML UDCUP PEG SCH (08:38)
[2021-03-17] MEDS: METOPROLOL TARTRATE 25 MG TABLET NG SCH ×2 (08:39→21:37)
[2021-03-17] MEDS: ASCORBIC ACID 500 MG TABLET PO SCH ×2 (08:39→21:37)
[2021-03-17] MEDS: OMEPRAZOLE ODT 20 MG TABLET PEG SCH ×2 (08:39→21:37)
[2021-03-17 08:44] LABS: Hypochromasia 1+
[2021-03-17 08:45] LABS: Anisocytosis 1+; Macrocytosis 1+; Platelet Estimate Normal
[2021-03-17 08:54] LABS: Calcium 9.7 MG/DL (8.5-10.1); Potassium 4.1 MMOL/L (3.5-5.1)
[2021-03-17] MEDS: SKIN HEALING OINT (AQUAPHOR) 50 GM TUBE TOP SCH (11:23)
[2021-03-17] MEDS: MEROPENEM 500 MG in SODIUM CHLORIDE 0.9% 100 ML IV SCH (13:20)
[2021-03-17] MEDS: ACETAMINOPHEN 325 MG/10.15 ML UDCUP PEG PRN (18:37)
[2021-03-17] MEDS: ROSUVASTATIN 20 MG TABLET NG SCH (21:37)
[2021-03-18] MEDS: INSULIN LISPRO 100 UNIT/ML SUBCUT SCH ×4 (01:23→17:34)
[2021-03-18] MEDS: ACETAMINOPHEN 325 MG/10.15 ML UDCUP PEG PRN (02:26)
[2021-03-18 05:19] LABS: Basophils % 0.2 % (0.0-0.8); Eosinophils # 0.2 10*3/uL (0.0-0.87); Eosinophils % 2.7 % (0.00-10.9); Hematocrit 25.8 VOL% (42.0-52.0); Hemoglobin 7.9 GM/DL (14.0-18.0); Immature Granulocytes % 1.1 %; Immature Granulocytes Absolute 0.09 #; Lymphocytes % 22.9 % (21.2-54.2); Mean Corpuscular HGB Conc 30.6 GM/DL (32-36); Mean Corpuscular Volume 114.7 FL (87-102); Mean Platelet Volume 9.5 FL (9.6-12.0); Monocytes % 6.2 % (1.7-12.7); Neutrophils % 66.9 % (38.7-73.9); Platelet Count 241 T/CUMM (130-400); Red Blood Count 2.25 MC/CUMM (3.8-5.5); Red Cell Distribution Width 16.4 % (9.3-17.3); White Blood Count 8.5 T/CUMM (4-12)
[2021-03-18 06:00] LABS: Calcium 9.7 MG/DL (8.5-10.1); Osmolality,Calculated 300.5 MOS/KG (273-304); Potassium 4.1 MMOL/L (3.5-5.1)
[2021-03-18 06:36] LABS: Anisocytosis 1+; Macrocytosis 1+; Platelet Estimate Normal; Polychromasia Slight
[2021-03-18] MEDS ORDERED: VANCOMYCIN INJ 500 MG in SODIUM CHLORIDE 0.9% 100 ML IV PRN (08:22)
[2021-03-18] MEDS ORDERED: VANCOMYCIN INJ 500 MG in SODIUM CHLORIDE 0.9% 100 ML IV SCH (08:30)
[2021-03-18] MEDS: LIDOCAINE 5% PATCH TRANSDERM SCH (09:49)
[2021-03-18] MEDS: FERROUS SULFATE 300 MG/5 ML UDCUP PEG SCH (09:50)
[2021-03-18] MEDS: MULTIVITAMIN LIQUID (CENTRUM) 60 ML BOTTLE PEG SCH (09:50)
[2021-03-18] MEDS: levETIRAcetam LIQUID 100 MG/ML 30 ML/BOTTLE NG SCH ×2 (09:50→21:00)
[2021-03-18] MEDS: ASCORBIC ACID 500 MG TABLET PO SCH ×2 (09:51→21:01)
[2021-03-18] MEDS: ASPIRIN CHEW 81 MG TABLET PO SCH (09:51)
[2021-03-18] MEDS: OMEPRAZOLE ODT 20 MG TABLET PEG SCH ×2 (09:51→21:01)
[2021-03-18] MEDS: METOPROLOL TARTRATE 25 MG TABLET NG SCH ×2 (09:51→21:01)
[2021-03-18] MEDS: MEROPENEM 500 MG in SODIUM CHLORIDE 0.9% 100 ML IV SCH (13:03)
[2021-03-18] MEDS: SKIN HEALING OINT (AQUAPHOR) 50 GM TUBE TOP SCH (15:30)
[2021-03-18] MEDS: ROSUVASTATIN 20 MG TABLET NG SCH (21:01)
[2021-03-19] MEDS: INSULIN LISPRO 100 UNIT/ML SUBCUT SCH ×3 (00:59→12:59)
[2021-03-19] MEDS: OMEPRAZOLE ODT 20 MG TABLET PEG SCH (08:12)
[2021-03-19] MEDS: METOPROLOL TARTRATE 25 MG TABLET NG SCH (08:12)
[2021-03-19] MEDS: ASCORBIC ACID 500 MG TABLET PO SCH (08:12)
[2021-03-19] MEDS: FERROUS SULFATE 300 MG/5 ML UDCUP PEG SCH (08:12)
[2021-03-19] MEDS: ASPIRIN CHEW 81 MG TABLET PO SCH (08:12)
[2021-03-19] MEDS: LIDOCAINE 5% PATCH TRANSDERM SCH (08:13)
[2021-03-19] MEDS: SKIN HEALING OINT (AQUAPHOR) 50 GM TUBE TOP SCH (08:13)
[2021-03-19] MEDS: MULTIVITAMIN LIQUID (CENTRUM) 60 ML BOTTLE PEG SCH (08:13)
[2021-03-19] MEDS: levETIRAcetam LIQUID 100 MG/ML 30 ML/BOTTLE NG SCH (08:13)
[2021-03-19] MEDS ORDERED: VANCOMYCIN INJ 500 MG in SODIUM CHLORIDE 0.9% 100 ML IV ONE (12:00)
[2021-03-19 13:16] VITALS: BP 110/70
[2021-03-19] MEDS: COAL TAR TOP SCH (14:54)
== END 2021-03-19 16:40 | DRG 314 ==
LOC: EDUNIT# → EDBD → N.ED 12:57 → N.EDINP 15:39 → SUATTDRO 15:39 → N.TELEN 16:00
PROVIDERS: ADMIT Internal Medicine; ATTEND Internal Medicine Geriatric Medicine

== ENCOUNTER 2022-03-06 04:09 | Inpatient (IN) ==
[2022-03-06] MEDS ORDERED: PIPERACILLIN/TAZOBACTAM 3,375 MG in SODIUM CHLORIDE 0.9% 100 ML IV STA (04:41)
[2022-03-06] MEDS ORDERED: SODIUM CHLORIDE 0.9% 500 ML IV STA (04:41)
[2022-03-06] MEDS ORDERED: ALBUTEROL/IPRATROPIUM 3 ML NEB RESP TX STA (04:41)
[2022-03-06] MEDS ORDERED: ONDANSETRON 4 MG/2 ML VIAL IV STA (04:41)
[2022-03-06 05:19] LABS: Basophils % 0.3 % (0.0-0.8); Eosinophils # 0.2 10*3/uL (0.0-0.87); Eosinophils % 2.7 % (0.00-10.9); Hematocrit 25.4 VOL% (42.0-52.0); Immature Granulocytes % 0.6 %; Immature Granulocytes Absolute 0.04 #; Lymphocytes # 1.2 10*3/uL (1.4-4.0); Mean Corpuscular HGB Conc 31.5 GM/DL (32-36); Mean Corpuscular Volume 123.3 FL (87-102); Mean Platelet Volume 9.9 FL (9.6-12.0); Monocytes # 0.6 10*3/uL (0.11-0.8); Neutrophils % 69.4 % (38.7-73.9); Platelet Count 183 T/CUMM (130-400); Red Blood Count 2.06 MC/CUMM (3.8-5.5); Red Cell Distribution Width 14.7 % (9.3-17.3); White Blood Count 6.8 T/CUMM (4-12)
[2022-03-06 05:37] LABS: Bilirubin,Total 0.5 MG/DL (0.20-1.00); Calcium 9.4 MG/DL (8.5-10.1); Potassium 3.2 MMOL/L (3.5-5.1); Total Protein 8.2 G/DL (6.4-8.2)
[2022-03-06] MEDS ORDERED: ACETAMINOPHEN 325 MG TABLET PO PRN (06:05)
[2022-03-06] MEDS ORDERED: DEXTROSE 10% 25 GM/250 ML BAG IV PRN (06:05)
[2022-03-06] MEDS ORDERED: GLUCAGON 1 MG VIAL IM PRN (06:05)
[2022-03-06] MEDS ORDERED: ONDANSETRON 4 MG/2 ML VIAL IV PRN (06:05)
[2022-03-06] MEDS ORDERED: hydrALAZINE 20 MG/1 ML VIAL IV PRN (06:05)
[2022-03-06] MEDS: ALBUTEROL/IPRATROPIUM 3 ML NEB RESP TX SCH ×3 (07:45→19:38)
[2022-03-06] MEDS ORDERED: VANCOMYCIN INJ 2,500 MG in SODIUM CHLORIDE 0.9% 500 ML IV ONE (09:00)
[2022-03-06] MEDS: INSULIN LISPRO 100 UNIT/ML SUBCUT SCH ×4 (09:30→21:56)
[2022-03-06] MEDS: PANTOPRAZOLE 40 MG TABLET PO SCH (09:46)
[2022-03-06] MEDS ORDERED: POTASSIUM CHLORIDE 20 MEQ TABLET PO ONE ×2 (10:28→16:00)
[2022-03-06] MEDS ORDERED: PIPERACILLIN/TAZOBACTAM 3,375 MG in SODIUM CHLORIDE 0.9% 100 ML IV SCH (12:00)
[2022-03-06] MEDS: PIPERACILLIN/TAZOBACTAM 3,375 MG in SODIUM CHLORIDE 0.9% 100 ML IV SCH ×2 (16:04→21:55)
[2022-03-06] MEDS: levETIRAcetam 250 MG TABLET PEG SCH (21:54)
[2022-03-06] MEDS: METOPROLOL TARTRATE 25 MG TABLET PEG SCH (21:54)
[2022-03-07] MEDS: ALBUTEROL/IPRATROPIUM 3 ML NEB RESP TX SCH ×4 (00:35→18:59)
[2022-03-07 06:17] LABS: Basophils % 0.6 % (0.0-0.8); Eosinophils # 0.3 10*3/uL (0.0-0.87); Eosinophils % 4.6 % (0.00-10.9); Hematocrit 23.4 VOL% (42.0-52.0); Hemoglobin 7.4 GM/DL (14.0-18.0); Immature Granulocytes % 0.2 %; Immature Granulocytes Absolute 0.01 #; Lymphocytes % 17.4 % (21.2-54.2); Mean Corpuscular HGB Conc 31.6 GM/DL (32-36); Mean Corpuscular Volume 123.8 FL (87-102); Mean Platelet Volume 9.5 FL (9.6-12.0); Monocytes # 0.5 10*3/uL (0.11-0.8); Monocytes % 9.7 % (1.7-12.7); Neutrophils % 67.5 % (38.7-73.9); Platelet Count 157 T/CUMM (130-400); Red Blood Count 1.89 MC/CUMM (3.8-5.5); Red Cell Distribution Width 14.6 % (9.3-17.3); White Blood Count 5.5 T/CUMM (4-12)
[2022-03-07 06:33] LABS: Calcium 9.5 MG/DL (8.5-10.1); Osmolality,Calculated 293.8 MOS/KG (273-304); Potassium 3.5 MMOL/L (3.5-5.1)
[2022-03-07] MEDS: PIPERACILLIN/TAZOBACTAM 3,375 MG in SODIUM CHLORIDE 0.9% 100 ML IV SCH ×3 (07:08→22:55)
[2022-03-07] MEDS: INSULIN LISPRO 100 UNIT/ML SUBCUT SCH ×4 (08:37→20:21)
[2022-03-07] MEDS: levETIRAcetam 250 MG TABLET PEG SCH ×2 (10:31→21:03)
[2022-03-07] MEDS: METOPROLOL TARTRATE 25 MG TABLET PEG SCH ×2 (10:31→21:03)
[2022-03-07] MEDS: OMEPRAZOLE ODT 20 MG TABLET PEG SCH (10:31)
[2022-03-07] MEDS ORDERED: HEPARIN 10,000 UNIT/10 ML VIAL IV SCH (15:30)
[2022-03-07 16:35] LABS: Folate > 24.00 NG/ML (5.38-24.0); Vitamin B12 1210 PG/ML (211-911)
[2022-03-07] MEDS ORDERED: VANCOMYCIN INJ 750 MG in SODIUM CHLORIDE 0.9% 250 ML IV ONE ×2 (17:00→20:00)
[2022-03-07] MEDS: HEPARIN 5,000 UNIT/1 ML VIAL SUBCUT SCH (17:32)
[2022-03-07] MEDS ORDERED: VANCOMYCIN INJ 750 MG in SODIUM CHLORIDE 0.9% 250 ML IV PRN (18:00)
[2022-03-07] MEDS: PANTOPRAZOLE 40 MG TABLET PO SCH (21:06)
[2022-03-08] MEDS: ALBUTEROL/IPRATROPIUM 3 ML NEB RESP TX SCH ×2 (01:30→07:08)
[2022-03-08] MEDS: HEPARIN 5,000 UNIT/1 ML VIAL SUBCUT SCH (03:14)
[2022-03-08 06:11] LABS: Basophils % 0.2 % (0.0-0.8); Eosinophils # 0.2 10*3/uL (0.0-0.87); Eosinophils % 4.7 % (0.00-10.9); Hematocrit 24.8 VOL% (42.0-52.0); Hemoglobin 7.8 GM/DL (14.0-18.0); Immature Granulocytes % 0.2 %; Immature Granulocytes Absolute 0.01 #; Lymphocytes # 1.2 10*3/uL (1.4-4.0); Lymphocytes % 23.3 % (21.2-54.2); Mean Corpuscular HGB Conc 31.5 GM/DL (32-36); Mean Corpuscular Volume 124.6 FL (87-102); Mean Platelet Volume 10.2 FL (9.6-12.0); Monocytes # 0.5 10*3/uL (0.11-0.8); Monocytes % 9.9 % (1.7-12.7); Neutrophils % 61.7 % (38.7-73.9); Platelet Count 169 T/CUMM (130-400); Red Blood Count 1.99 MC/CUMM (3.8-5.5); Red Cell Distribution Width 14.5 % (9.3-17.3); White Blood Count 4.9 T/CUMM (4-12)
[2022-03-08 06:25] LABS: Calcium 9.5 MG/DL (8.5-10.1); Osmolality,Calculated 283.7 MOS/KG (273-304); Potassium 3.4 MMOL/L (3.5-5.1)
[2022-03-08] MEDS ORDERED: DEXTROSE 10% 250 ML BAG IV PRN (06:30)
[2022-03-08] MEDS ORDERED: SODIUM CHLORIDE 0.9% 1,000 ML IV PRN (09:50)
[2022-03-08] MEDS: INSULIN LISPRO 100 UNIT/ML SUBCUT SCH ×2 (09:54→12:55)
[2022-03-08] MEDS ORDERED: POTASSIUM BICARB EFFERVESCENT 20 MEQ TAB.EFF PO ONE (10:00)
[2022-03-08] MEDS: OMEPRAZOLE ODT 20 MG TABLET PEG SCH (10:02)
[2022-03-08] MEDS: METOPROLOL TARTRATE 25 MG TABLET PEG SCH (10:02)
[2022-03-08] MEDS: levETIRAcetam 250 MG TABLET PEG SCH (10:03)
[2022-03-08] MEDS: PIPERACILLIN/TAZOBACTAM 3,375 MG in SODIUM CHLORIDE 0.9% 100 ML IV SCH ×2 (10:03→12:39)
[2022-03-08 12:03] VITALS: BP 101/62
== END 2022-03-08 15:20 | DRG 177 ==
LOC: EDUNIT# → N.ED 04:09 → N.EDINP 06:05 → N.3E 13:25
PROVIDERS: ADMIT Internal Medicine; ATTEND Internal Medicine

== ENCOUNTER 2022-08-09 00:05 | Inpatient (IN) ==
[2022-08-09] MEDS ORDERED: PIPERACILLIN/TAZOBACTAM 3,375 MG in SODIUM CHLORIDE 0.9% 100 ML IV STA (01:34)
[2022-08-09] MEDS ORDERED: SODIUM CHLORIDE 0.9% 1,000 ML IV STA (01:34)
[2022-08-09 01:55] LABS: Basophils % 0.3 % (0.0-0.8); Eosinophils # 0.2 10*3/uL (0.0-0.87); Eosinophils % 3.9 % (0.00-10.9); Hematocrit 33.6 VOL% (42.0-52.0); Hemoglobin 10.5 GM/DL (14.0-18.0); Immature Granulocytes % 0.3 %; Immature Granulocytes Absolute 0.01 #; Lymphocytes # 0.8 10*3/uL (1.4-4.0); Lymphocytes % 20.1 % (21.2-54.2); Mean Corpuscular HGB Conc 31.3 GM/DL (32-36); Mean Corpuscular Volume 115.5 FL (87-102); Mean Platelet Volume 9.6 FL (9.6-12.0); Monocytes # 0.5 10*3/uL (0.11-0.8); Monocytes % 11.8 % (1.7-12.7); Neutrophils % 63.6 % (38.7-73.9); Platelet Count 153 T/CUMM (130-400); Red Blood Count 2.91 MC/CUMM (3.8-5.5); Red Cell Distribution Width 16.6 % (9.3-17.3); White Blood Count 3.9 T/CUMM (4-12)
[2022-08-09 02:03] LABS: Albumin 2.8 G/DL (3.4-5.0); Bilirubin,Total 0.4 MG/DL (0.20-1.00); Calcium 8.7 MG/DL (8.5-10.1); Osmolality,Calculated 280.8 MOS/KG (273-304); Potassium 2.7 MMOL/L (3.5-5.1); Total Protein 7.9 G/DL (6.4-8.2)
[2022-08-09] MEDS ORDERED: ALBUTEROL/IPRATROPIUM 3 ML NEB RESP TX STA (02:15)
[2022-08-09 02:34] LABS: INR 0.9; PT Patient Result 10.5 SECS (10.1-12.1)
[2022-08-09] MEDS ORDERED: ONDANSETRON 4 MG/2 ML VIAL IV PRN (03:04)
[2022-08-09] MEDS ORDERED: hydrALAZINE 20 MG/1 ML VIAL IV PRN (03:04)
[2022-08-09] MEDS ORDERED: POTASSIUM CHLORIDE RIDER 10 MEQ/100 ML PREMIX IV ONE (03:14)
[2022-08-09] MEDS ORDERED: ACETAMINOPHEN 325 MG TABLET PEG PRN (03:17)
[2022-08-09] MEDS ORDERED: VANCOMYCIN INJ 500 MG in SODIUM CHLORIDE 0.9% 100 ML IV PRN (03:54)
[2022-08-09] MEDS ORDERED: VANCOMYCIN INJ 1,000 MG in SODIUM CHLORIDE 0.9% 250 ML IV ONE (04:00)
[2022-08-09] MEDS: ENOXAPARIN 80 MG/0.8 ML SYRINGE SUBCUT SCH (05:40)
[2022-08-09] MEDS: INSULIN LISPRO 100 UNIT/ML SUBCUT SCH ×3 (06:10→18:19)
[2022-08-09] MEDS: VANCOMYCIN INJ 1,750 MG in SODIUM CHLORIDE 0.9% 500 ML IV ONE ×2 (06:51→07:13)
[2022-08-09] MEDS: ALBUTEROL/IPRATROPIUM 3 ML NEB RESP TX SCH ×3 (07:20→19:49)
[2022-08-09] MEDS: PANTOPRAZOLE 40 MG TABLET PO SCH (09:25)
[2022-08-09] MEDS: METOPROLOL TARTRATE 25 MG TABLET PEG SCH ×2 (09:25→22:30)
[2022-08-09] MEDS: levETIRAcetam 500 MG TABLET PO SCH ×2 (09:25→22:30)
[2022-08-09] MEDS: PIPERACILLIN/TAZOBACTAM 3,375 MG in SODIUM CHLORIDE 0.9% 100 ML IV SCH (17:47)
[2022-08-09] MEDS: WARFARIN 3 MG TABLET PEG SCH (18:18)
[2022-08-09] MEDS: ROSUVASTATIN 20 MG TABLET PEG SCH (22:30)
[2022-08-09] MEDS: FERROUS SULFATE 300 MG/5 ML UDCUP PO SCH (22:30)
[2022-08-10] MEDS: ALBUTEROL/IPRATROPIUM 3 ML NEB RESP TX SCH ×4 (00:16→19:34)
[2022-08-10] MEDS: PIPERACILLIN/TAZOBACTAM 3,375 MG in SODIUM CHLORIDE 0.9% 100 ML IV SCH ×3 (00:45→15:46)
[2022-08-10] MEDS: INSULIN LISPRO 100 UNIT/ML SUBCUT SCH ×4 (01:06→17:04)
[2022-08-10] MEDS: ENOXAPARIN 80 MG/0.8 ML SYRINGE SUBCUT SCH (05:31)
[2022-08-10 05:56] LABS: PT Patient Result 11.4 SECS (10.1-12.1)
[2022-08-10 06:02] LABS: Basophils % 0.4 % (0.0-0.8); Eosinophils # 0.2 10*3/uL (0.0-0.87); Eosinophils % 4.2 % (0.00-10.9); Hematocrit 23.6 VOL% (42.0-52.0); Immature Granulocytes % 0.4 %; Immature Granulocytes Absolute 0.02 #; Lymphocytes # 1.2 10*3/uL (1.4-4.0); Lymphocytes % 22.7 % (21.2-54.2); Mean Corpuscular HGB Conc 30.5 GM/DL (32-36); Mean Corpuscular Volume 116.3 FL (87-102); Mean Platelet Volume 10.2 FL (9.6-12.0); Monocytes # 0.4 10*3/uL (0.11-0.8); Monocytes % 7.8 % (1.7-12.7); Neutrophils % 64.5 % (38.7-73.9); Platelet Count 188 T/CUMM (130-400); Red Blood Count 2.03 MC/CUMM (3.8-5.5); Red Cell Distribution Width 16.3 % (9.3-17.3); White Blood Count 5.3 T/CUMM (4-12)
[2022-08-10 06:04] LABS: Hemoglobin 7.2 GM/DL (14.0-18.0)
[2022-08-10 06:08] LABS: Calcium 9.2 MG/DL (8.5-10.1); Osmolality,Calculated 288.5 MOS/KG (273-304); Potassium 2.7 MMOL/L (3.5-5.1)
[2022-08-10] MEDS ORDERED: HEPARIN 10,000 UNIT/10 ML VIAL IV PRN (08:45)
[2022-08-10 09:12] LABS: Folate 19.75 NG/ML (5.38-24.0)
[2022-08-10 09:23] LABS: % Iron Saturation 38.5 % (18-50); Ferritin 2422.4 ng/mL (26-388)
[2022-08-10] MEDS: levETIRAcetam 500 MG TABLET PO SCH ×2 (11:18→21:42)
[2022-08-10] MEDS: PANTOPRAZOLE 40 MG TABLET PO SCH (11:19)
[2022-08-10] MEDS: METOPROLOL TARTRATE 25 MG TABLET PEG SCH ×2 (11:23→21:41)
[2022-08-10] MEDS ORDERED: VANCOMYCIN INJ 500 MG in SODIUM CHLORIDE 0.9% 100 ML IV ONE (17:00)
[2022-08-10] MEDS: WARFARIN 3 MG TABLET PEG SCH (18:44)
[2022-08-10] MEDS: FERROUS SULFATE 300 MG/5 ML UDCUP PO SCH (21:41)
[2022-08-10] MEDS: ROSUVASTATIN 20 MG TABLET PEG SCH (21:42)
[2022-08-11] MEDS: PIPERACILLIN/TAZOBACTAM 3,375 MG in SODIUM CHLORIDE 0.9% 100 ML IV SCH ×3 (00:29→19:13)
[2022-08-11] MEDS: INSULIN LISPRO 100 UNIT/ML SUBCUT SCH ×4 (01:31→18:12)
[2022-08-11] MEDS: ALBUTEROL/IPRATROPIUM 3 ML NEB RESP TX SCH ×4 (02:03→19:02)
[2022-08-11] MEDS: ENOXAPARIN 80 MG/0.8 ML SYRINGE SUBCUT SCH (04:25)
[2022-08-11 06:10] LABS: Basophils % 0.2 % (0.0-0.8); Eosinophils # 0.2 10*3/uL (0.0-0.87); Eosinophils % 4.8 % (0.00-10.9); Hematocrit 23.3 VOL% (42.0-52.0); Hemoglobin 6.8 GM/DL (14.0-18.0); Immature Granulocytes % 0.2 %; Immature Granulocytes Absolute 0.01 #; Lymphocytes # 1.4 10*3/uL (1.4-4.0); Lymphocytes % 29.6 % (21.2-54.2); Mean Corpuscular HGB Conc 29.2 GM/DL (32-36); Mean Corpuscular Volume 119.5 FL (87-102); Mean Platelet Volume 9.2 FL (9.6-12.0); Monocytes # 0.3 10*3/uL (0.11-0.8); Monocytes % 5.9 % (1.7-12.7); Neutrophils % 59.3 % (38.7-73.9); Platelet Count 175 T/CUMM (130-400); Red Blood Count 1.95 MC/CUMM (3.8-5.5); Red Cell Distribution Width 16.5 % (9.3-17.3); White Blood Count 4.8 T/CUMM (4-12)
[2022-08-11 06:21] LABS: INR 1.2; PT Patient Result 12.8 SECS (10.1-12.1)
[2022-08-11 06:31] LABS: Osmolality,Calculated 283.7 MOS/KG (273-304); Potassium 3.1 MMOL/L (3.5-5.1)
[2022-08-11] MEDS ORDERED: SODIUM CHLORIDE 0.9% 1,000 ML IV PRN (08:29)
[2022-08-11] MEDS: PANTOPRAZOLE 40 MG TABLET PO SCH (10:45)
[2022-08-11] MEDS: METOPROLOL TARTRATE 25 MG TABLET PEG SCH ×2 (10:45→22:11)
[2022-08-11] MEDS: levETIRAcetam 500 MG TABLET PO SCH ×2 (10:45→22:11)
[2022-08-11] MEDS: WARFARIN 3 MG TABLET PEG SCH (18:11)
[2022-08-11] MEDS: FERROUS SULFATE 300 MG/5 ML UDCUP PO SCH (22:11)
[2022-08-11] MEDS: ROSUVASTATIN 20 MG TABLET PEG SCH (22:11)
[2022-08-12] MEDS: ALBUTEROL/IPRATROPIUM 3 ML NEB RESP TX SCH ×4 (00:31→19:20)
[2022-08-12] MEDS: PIPERACILLIN/TAZOBACTAM 3,375 MG in SODIUM CHLORIDE 0.9% 100 ML IV SCH ×4 (00:50→23:26)
[2022-08-12] MEDS: INSULIN LISPRO 100 UNIT/ML SUBCUT SCH ×4 (01:01→17:14)
[2022-08-12] MEDS: ENOXAPARIN 80 MG/0.8 ML SYRINGE SUBCUT SCH (03:22)
[2022-08-12 06:02] LABS: INR 1.1; PT Patient Result 12.4 SECS (10.1-12.1)
[2022-08-12 06:04] LABS: Basophils % 0.3 % (0.0-0.8); Eosinophils # 0.3 10*3/uL (0.0-0.87); Eosinophils % 4.4 % (0.00-10.9); Hematocrit 30.9 VOL% (42.0-52.0); Immature Granulocytes % 0.3 %; Immature Granulocytes Absolute 0.02 #; Lymphocytes # 1.4 10*3/uL (1.4-4.0); Lymphocytes % 23.1 % (21.2-54.2); Mean Corpuscular HGB Conc 30.7 GM/DL (32-36); Mean Corpuscular Volume 105.8 FL (87-102); Mean Platelet Volume 10.2 FL (9.6-12.0); Monocytes # 0.4 10*3/uL (0.11-0.8); Monocytes % 6.1 % (1.7-12.7); Neutrophils % 65.8 % (38.7-73.9); Platelet Count 197 T/CUMM (130-400); Red Cell Distribution Width 22.5 % (9.3-17.3); White Blood Count 6.2 T/CUMM (4-12)
[2022-08-12 06:07] LABS: Red Blood Count 2.92 MC/CUMM (3.8-5.5)
[2022-08-12 06:09] LABS: Hemoglobin 9.5 GM/DL (14.0-18.0)
[2022-08-12 06:16] LABS: Calcium 9.1 MG/DL (8.5-10.1); Osmolality,Calculated 290.4 MOS/KG (273-304); Potassium 3.3 MMOL/L (3.5-5.1)
[2022-08-12] MEDS: METOPROLOL TARTRATE 25 MG TABLET PEG SCH ×2 (08:10→23:12)
[2022-08-12] MEDS: levETIRAcetam 500 MG TABLET PO SCH ×2 (08:10→23:12)
[2022-08-12] MEDS: PANTOPRAZOLE 40 MG TABLET PO SCH (08:11)
[2022-08-12] MEDS ORDERED: ZINC OXIDE PASTE 113 GM TUBE TOP PRN (12:52)
[2022-08-12] MEDS: WARFARIN 3 MG TABLET PEG SCH (17:14)
[2022-08-12] MEDS: FERROUS SULFATE 300 MG/5 ML UDCUP PO SCH (23:12)
[2022-08-12] MEDS: ROSUVASTATIN 20 MG TABLET PEG SCH (23:12)
[2022-08-13] MEDS: ALBUTEROL/IPRATROPIUM 3 ML NEB RESP TX SCH ×4 (00:26→20:54)
[2022-08-13] MEDS: INSULIN LISPRO 100 UNIT/ML SUBCUT SCH ×4 (02:03→19:02)
[2022-08-13 06:08] LABS: INR 1.3; PT Patient Result 13.7 SECS (10.1-12.1)
[2022-08-13] MEDS ORDERED: MEPERIDINE 50 MG/1 ML VIAL IM ONE (07:00)
[2022-08-13] MEDS ORDERED: PROMETHAZINE 25 MG/1 ML VIAL IM ONE (07:00)
[2022-08-13] MEDS ORDERED: LIDOCAINE 2% VISCOUS 100 ML BOTTLE SWISH/SPIT ONE (07:30)
[2022-08-13] MEDS ORDERED: LIDOCAINE 2% 20 ML VIAL RESP TX ONE (07:30)
[2022-08-13] MEDS ORDERED: LIDOCAINE 1% 20 ML VIAL MISC INJ ONE (07:30)
[2022-08-13] MEDS ORDERED: MIDAZOLAM 2 MG/2 ML VIAL IV ONE (07:30)
[2022-08-13] MEDS: SODIUM CHLORIDE 0.9% 250 ML IV SCH (12:40)
[2022-08-13] MEDS ORDERED: KETAMINE 500 MG/10 ML VIAL ONE (13:15)
[2022-08-13] MEDS ORDERED: ETOMIDATE 20 MG/10 ML VIAL IV ONE (13:25)
[2022-08-13] MEDS ORDERED: LIDOCAINE 2% 5 ML VIAL ONE (13:25)
[2022-08-13] MEDS: PIPERACILLIN/TAZOBACTAM 3,375 MG in SODIUM CHLORIDE 0.9% 100 ML IV SCH ×2 (15:55→17:09)
[2022-08-13] MEDS: levETIRAcetam 500 MG TABLET PO SCH ×2 (16:59→20:35)
[2022-08-13] MEDS: PANTOPRAZOLE 40 MG TABLET PO SCH (16:59)
[2022-08-13] MEDS: METOPROLOL TARTRATE 25 MG TABLET PEG SCH ×2 (16:59→20:35)
[2022-08-13] MEDS: WARFARIN 3 MG TABLET PEG SCH (17:13)
[2022-08-13] MEDS: FERROUS SULFATE 300 MG/5 ML UDCUP PO SCH (20:34)
[2022-08-13] MEDS: ROSUVASTATIN 20 MG TABLET PEG SCH (20:35)
[2022-08-13] MEDS: DEXTROSE 5% 1,000 ML IV SCH (20:40)
[2022-08-14] MEDS: ALBUTEROL/IPRATROPIUM 3 ML NEB RESP TX SCH ×4 (00:48→19:05)
[2022-08-14] MEDS: PIPERACILLIN/TAZOBACTAM 3,375 MG in SODIUM CHLORIDE 0.9% 100 ML IV SCH ×3 (00:51→17:35)
[2022-08-14] MEDS: INSULIN LISPRO 100 UNIT/ML SUBCUT SCH ×4 (00:51→18:11)
[2022-08-14] MEDS: ENOXAPARIN 80 MG/0.8 ML SYRINGE SUBCUT SCH (04:21)
[2022-08-14] MEDS: METOPROLOL TARTRATE 25 MG TABLET PEG SCH ×2 (09:42→22:03)
[2022-08-14] MEDS: levETIRAcetam 500 MG TABLET PO SCH ×2 (09:42→22:03)
[2022-08-14] MEDS: OMEPRAZOLE ODT 20 MG TABLET PER TUBE SCH ×2 (09:42→22:04)
[2022-08-14] MEDS: SODIUM CHLORIDE 0.9% 250 ML IV SCH ×2 (10:49→17:35)
[2022-08-14] MEDS: DEXTROSE 5% 1,000 ML IV SCH (17:35)
[2022-08-14] MEDS: WARFARIN 3 MG TABLET PEG SCH (18:09)
[2022-08-14] MEDS: ROSUVASTATIN 20 MG TABLET PEG SCH (22:04)
[2022-08-14] MEDS: FERROUS SULFATE 300 MG/5 ML UDCUP PO SCH (22:06)
[2022-08-15] MEDS: ALBUTEROL/IPRATROPIUM 3 ML NEB RESP TX SCH ×3 (00:05→14:45)
[2022-08-15] MEDS: INSULIN LISPRO 100 UNIT/ML SUBCUT SCH ×3 (02:01→12:47)
[2022-08-15] MEDS: PIPERACILLIN/TAZOBACTAM 3,375 MG in SODIUM CHLORIDE 0.9% 100 ML IV SCH ×2 (02:08→11:53)
[2022-08-15] MEDS: ENOXAPARIN 80 MG/0.8 ML SYRINGE SUBCUT SCH (04:49)
[2022-08-15 07:04] LABS: Basophils % 0.3 % (0.0-0.8); Eosinophils # 0.2 10*3/uL (0.0-0.87); Hematocrit 31.6 VOL% (42.0-52.0); Hemoglobin 9.5 GM/DL (14.0-18.0); Immature Granulocytes % 0.3 %; Immature Granulocytes Absolute 0.02 #; Lymphocytes # 1.2 10*3/uL (1.4-4.0); Lymphocytes % 16.5 % (21.2-54.2); Mean Corpuscular HGB Conc 30.1 GM/DL (32-36); Mean Corpuscular Volume 108.2 FL (87-102); Mean Platelet Volume 9.8 FL (9.6-12.0); Monocytes # 0.4 10*3/uL (0.11-0.8); Monocytes % 5.9 % (1.7-12.7); Platelet Count 200 T/CUMM (130-400); Red Blood Count 2.92 MC/CUMM (3.8-5.5); Red Cell Distribution Width 21.3 % (9.3-17.3); White Blood Count 7.1 T/CUMM (4-12)
[2022-08-15 07:13] LABS: INR 1.7; PT Patient Result 17.7 SECS (10.1-12.1)
[2022-08-15] MEDS ORDERED: LIDOCAINE 1% 20 ML VIAL MISC INJ ONE (07:15)
[2022-08-15] MEDS ORDERED: MIDAZOLAM 2 MG/2 ML VIAL IV ONE (07:15)
[2022-08-15] MEDS ORDERED: LIDOCAINE 2% VISCOUS 100 ML BOTTLE SWISH/SPIT ONE (07:15)
[2022-08-15] MEDS ORDERED: LIDOCAINE 2% 20 ML VIAL RESP TX ONE (07:15)
[2022-08-15 07:22] LABS: Albumin 2.6 G/DL (3.4-5.0); Bilirubin,Total 0.5 MG/DL (0.20-1.00); Calcium 9.2 MG/DL (8.5-10.1); Osmolality,Calculated 294.3 MOS/KG (273-304); Potassium 3.1 MMOL/L (3.5-5.1); Total Protein 8.2 G/DL (6.4-8.2)
[2022-08-15] MEDS ORDERED: LEVOFLOXACIN 750 MG TABLET PO ONE (09:30)
[2022-08-15] MEDS ORDERED: predniSONE 20 MG TABLET PO SCH (10:00)
[2022-08-15] MEDS: levETIRAcetam 500 MG TABLET PO SCH (12:11)
[2022-08-15] MEDS: OMEPRAZOLE ODT 20 MG TABLET PER TUBE SCH (12:11)
[2022-08-15] MEDS: METOPROLOL TARTRATE 25 MG TABLET PEG SCH (12:11)
[2022-08-15 12:43] VITALS: BP 120/87
[2022-08-17] MEDS ORDERED: LEVOFLOXACIN 500 MG TABLET PO SCH (09:00)
== END 2022-08-15 15:39 | DRG 177 ==
LOC: EDUNIT# → EDBD → N.ED 00:05 → N.EDINP 03:04 → SUATTDRO 03:04 → N.TELEN 16:15
PROVIDERS: ADMIT Internal Medicine; ATTEND Internal Medicine
PROC: EGDWPEG (ICD-10-PCS; 2022-08-13 07:50)

== ENCOUNTER 2022-11-08 00:46 | Inpatient (IN) ==
[2022-11-08] MEDS ORDERED: methylPREDNISolone SOD SUC 125 MG/2 ML VIAL IV STA (01:21)
[2022-11-08] MEDS ORDERED: ONDANSETRON 4 MG/2 ML VIAL IV STA (01:21)
[2022-11-08] MEDS ORDERED: ALBUTEROL/IPRATROPIUM 3 ML NEB RESP TX STA (01:21)
[2022-11-08 01:27] LABS: Basophils % 0.3 % (0.0-0.8); Eosinophils # 0.2 10*3/uL (0.0-0.87); Hematocrit 29.3 VOL% (42.0-52.0); Hemoglobin 9.5 GM/DL (14.0-18.0); Immature Granulocytes % 0.3 %; Immature Granulocytes Absolute 0.02 #; Lymphocytes # 1.1 10*3/uL (1.4-4.0); Lymphocytes % 15.2 % (21.2-54.2); Mean Corpuscular HGB Conc 32.4 GM/DL (32-36); Mean Corpuscular Volume 119.6 FL (87-102); Monocytes # 0.5 10*3/uL (0.11-0.8); Monocytes % 7.1 % (1.7-12.7); Neutrophils % 75.1 % (38.7-73.9); Platelet Count 188 T/CUMM (130-400); Red Blood Count 2.45 MC/CUMM (3.8-5.5); Red Cell Distribution Width 17.6 % (9.3-17.3); White Blood Count 7.5 T/CUMM (4-12)
[2022-11-08 02:08] LABS: Albumin 3.1 G/DL (3.4-5.0); Bilirubin,Total 0.4 MG/DL (0.20-1.00); Calcium 9.2 MG/DL (8.5-10.1); Osmolality,Calculated 286.4 MOS/KG (273-304); Potassium 3.6 MMOL/L (3.5-5.1); Total Protein 8.8 G/DL (6.4-8.2)
[2022-11-08] MEDS ORDERED: PIPERACILLIN/TAZOBACTAM 3,375 MG in SODIUM CHLORIDE 0.9% 100 ML IV STA (02:12)
[2022-11-08] MEDS ORDERED: DEXTROSE 10% 250 ML BAG IV PRN (05:36)
[2022-11-08 05:39] LABS: PT Patient Result 10.7 SECS (10.1-12.1)
[2022-11-08] MEDS: INSULIN REGULAR 100 UNIT/ML SUBCUT SCH ×3 (05:48→17:51)
[2022-11-08] MEDS: ALBUTEROL/IPRATROPIUM 3 ML NEB RESP TX SCH ×3 (07:58→20:14)
[2022-11-08] MEDS ORDERED: levETIRAcetam 500 MG TABLET PO SCH (08:00)
[2022-11-08] MEDS: METOPROLOL TARTRATE 25 MG TABLET PEG SCH ×2 (09:00→21:51)
[2022-11-08] MEDS ORDERED: OMEGA DHA EPA FISH OIL PO SCH (09:00)
[2022-11-08] MEDS: PANTOPRAZOLE 40 MG TABLET PO SCH ×2 (09:00→17:52)
[2022-11-08] MEDS: PIPERACILLIN/TAZOBACTAM 3,375 MG in SODIUM CHLORIDE 0.9% 100 ML IV SCH ×2 (10:15→17:51)
[2022-11-08] MEDS: ROSUVASTATIN 20 MG TABLET PEG SCH (21:51)
[2022-11-08] MEDS: FERROUS SULFATE 300 MG/5 ML UDCUP PEG SCH (21:51)
[2022-11-08] MEDS: levETIRAcetam LIQUID 100 MG/ML 30 ML/BOTTLE PO SCH (21:51)
[2022-11-09] MEDS: INSULIN REGULAR 100 UNIT/ML SUBCUT SCH ×4 (00:37→23:20)
[2022-11-09] MEDS: ALBUTEROL/IPRATROPIUM 3 ML NEB RESP TX SCH ×4 (00:59→20:48)
[2022-11-09] MEDS: PIPERACILLIN/TAZOBACTAM 3,375 MG in SODIUM CHLORIDE 0.9% 100 ML IV SCH ×2 (01:41→11:30)
[2022-11-09] MEDS: [UNRECOGNIZED DRUG - OTHER] PEG SCH ×2 (06:04→11:30)
[2022-11-09] MEDS: PANTOPRAZOLE 40 MG TABLET PO SCH ×2 (06:04→17:06)
[2022-11-09 06:35] LABS: Basophils % 0.1 % (0.0-0.8); Eosinophils % 0.3 % (0.00-10.9); Hematocrit 26.8 VOL% (42.0-52.0); Hemoglobin 8.4 GM/DL (14.0-18.0); Immature Granulocytes % 0.5 %; Immature Granulocytes Absolute 0.05 #; Lymphocytes # 1.1 10*3/uL (1.4-4.0); Lymphocytes % 11.6 % (21.2-54.2); Mean Corpuscular HGB Conc 31.3 GM/DL (32-36); Mean Corpuscular Volume 121.8 FL (87-102); Mean Platelet Volume 10.2 FL (9.6-12.0); Monocytes # 0.9 10*3/uL (0.11-0.8); Monocytes % 9.2 % (1.7-12.7); Neutrophils % 78.3 % (38.7-73.9); Platelet Count 178 T/CUMM (130-400); Red Cell Distribution Width 17.3 % (9.3-17.3); White Blood Count 9.8 T/CUMM (4-12)
[2022-11-09] MEDS ORDERED: ONDANSETRON 4 MG/2 ML VIAL ONE (06:36)
[2022-11-09] MEDS ORDERED: LIDOCAINE 2% 5 ML VIAL ONE (06:36)
[2022-11-09] MEDS ORDERED: fentaNYL 100 MCG/2 ML VIAL ONE (06:36)
[2022-11-09] MEDS ORDERED: propofoL 200 MG/20 ML VIAL IV ONE (06:36)
[2022-11-09] MEDS ORDERED: MIDAZOLAM 2 MG/2 ML VIAL ONE (06:36)
[2022-11-09 07:00] LABS: Bilirubin,Total 0.4 MG/DL (0.20-1.00); Calcium 9.1 MG/DL (8.5-10.1); Osmolality,Calculated 301.1 MOS/KG (273-304); Potassium 3.3 MMOL/L (3.5-5.1); Total Protein 8.3 G/DL (6.4-8.2)
[2022-11-09 07:03] LABS: PT Patient Result 10.8 SECS (10.1-12.1)
[2022-11-09] MEDS ORDERED: LIDOCAINE 1%/EPI INJ 20 ML VIAL ONE (09:55)
[2022-11-09] MEDS ORDERED: HEPARIN 5,000 UNIT/1 ML VIAL ONE (09:55)
[2022-11-09 10:06] LABS: Anisocytosis 1+; Macrocytosis 1+; Platelet Estimate Normal
[2022-11-09] MEDS ORDERED: BUPIVACAINE MPF 0.25% 10 ML VIAL ONE (10:22)
[2022-11-09] MEDS: METOPROLOL TARTRATE 25 MG TABLET PEG SCH ×2 (11:30→21:41)
[2022-11-09] MEDS: levETIRAcetam LIQUID 100 MG/ML 30 ML/BOTTLE PO SCH ×2 (11:30→21:41)
[2022-11-09] MEDS: AMOXICILLIN/CLAV 500 MG TABLET PO SCH (17:06)
[2022-11-09] MEDS: ROSUVASTATIN 20 MG TABLET PEG SCH (21:40)
[2022-11-09] MEDS: FERROUS SULFATE 300 MG/5 ML UDCUP PEG SCH (21:41)
[2022-11-09] MEDS: HEPARIN 5,000 UNIT/1 ML VIAL SUBCUT SCH (21:42)
[2022-11-10] MEDS: INSULIN REGULAR 100 UNIT/ML SUBCUT SCH ×4 (00:33→19:03)
[2022-11-10] MEDS: ALBUTEROL/IPRATROPIUM 3 ML NEB RESP TX SCH ×4 (01:21→19:23)
[2022-11-10] MEDS: [UNRECOGNIZED DRUG - OTHER] PEG SCH (05:41)
[2022-11-10] MEDS: PANTOPRAZOLE 40 MG TABLET PO SCH ×2 (05:44→17:47)
[2022-11-10 06:18] LABS: Basophils % 0.4 % (0.0-0.8); Eosinophils # 0.2 10*3/uL (0.0-0.87); Eosinophils % 2.7 % (0.00-10.9); Hematocrit 25.5 VOL% (42.0-52.0); Hemoglobin 8.3 GM/DL (14.0-18.0); Immature Granulocytes % 0.3 %; Immature Granulocytes Absolute 0.02 #; Lymphocytes # 0.9 10*3/uL (1.4-4.0); Mean Corpuscular HGB Conc 32.5 GM/DL (32-36); Mean Corpuscular Volume 121.4 FL (87-102); Mean Platelet Volume 10.1 FL (9.6-12.0); Monocytes # 0.5 10*3/uL (0.11-0.8); Monocytes % 6.7 % (1.7-12.7); Neutrophils % 76.9 % (38.7-73.9); Platelet Count 178 T/CUMM (130-400); Red Cell Distribution Width 17.1 % (9.3-17.3)
[2022-11-10 06:33] LABS: Calcium 9.5 MG/DL (8.5-10.1); Osmolality,Calculated 310.8 MOS/KG (273-304); Potassium 3.6 MMOL/L (3.5-5.1)
[2022-11-10 08:41] LABS: Anisocytosis 1+; Macrocytosis 1+; Platelet Estimate Normal; Tear Drop Cells Few
[2022-11-10] MEDS: ZINC OXIDE PASTE 113 GM TUBE TOP PRN (10:00)
[2022-11-10] MEDS: levETIRAcetam LIQUID 100 MG/ML 30 ML/BOTTLE PO SCH ×2 (10:00→22:12)
[2022-11-10] MEDS: HEPARIN 5,000 UNIT/1 ML VIAL SUBCUT SCH (10:01)
[2022-11-10] MEDS: AMOXICILLIN/CLAV 500 MG TABLET PO SCH (10:01)
[2022-11-10] MEDS: METOPROLOL TARTRATE 25 MG TABLET PEG SCH ×2 (10:01→22:12)
[2022-11-10] MEDS: FERROUS SULFATE 300 MG/5 ML UDCUP PEG SCH (22:12)
[2022-11-10] MEDS: ROSUVASTATIN 20 MG TABLET PEG SCH (22:12)
[2022-11-11] MEDS: ALBUTEROL/IPRATROPIUM 3 ML NEB RESP TX SCH ×4 (00:14→19:46)
[2022-11-11] MEDS: INSULIN REGULAR 100 UNIT/ML SUBCUT SCH ×4 (01:21→18:03)
[2022-11-11] MEDS: [UNRECOGNIZED DRUG - OTHER] PEG SCH (05:46)
[2022-11-11] MEDS: PANTOPRAZOLE 40 MG TABLET PO SCH ×2 (05:46→18:03)
[2022-11-11 06:06] LABS: Basophils % 0.4 % (0.0-0.8); Eosinophils # 0.3 10*3/uL (0.0-0.87); Eosinophils % 3.8 % (0.00-10.9); Hematocrit 24.7 VOL% (42.0-52.0); Immature Granulocytes % 0.4 %; Immature Granulocytes Absolute 0.03 #; Lymphocytes % 13.7 % (21.2-54.2); Mean Corpuscular HGB Conc 32.4 GM/DL (32-36); Mean Corpuscular Volume 119.9 FL (87-102); Mean Platelet Volume 10.3 FL (9.6-12.0); Monocytes # 0.6 10*3/uL (0.11-0.8); Monocytes % 7.6 % (1.7-12.7); Neutrophils % 74.1 % (38.7-73.9); Platelet Count 181 T/CUMM (130-400); Red Blood Count 2.06 MC/CUMM (3.8-5.5); Red Cell Distribution Width 17.1 % (9.3-17.3); White Blood Count 7.4 T/CUMM (4-12)
[2022-11-11 06:30] LABS: Calcium 9.4 MG/DL (8.5-10.1); Osmolality,Calculated 313.8 MOS/KG (273-304); Potassium 3.4 MMOL/L (3.5-5.1)
[2022-11-11 06:39] LABS: Folate > 24.00 NG/ML (5.38-24.0); Vitamin B12 1316 PG/ML (211-911)
[2022-11-11] MEDS ORDERED: fentaNYL 100 MCG/2 ML VIAL IV ONE (13:43)
[2022-11-11] MEDS ORDERED: DIAZEPAM 5 MG TABLET PO ONE (13:43)
[2022-11-11] MEDS ORDERED: MIDAZOLAM 2 MG/2 ML VIAL IV ONE (13:43)
[2022-11-11 14:05] LABS: Basophils % 0.4 % (0.0-0.8); Eosinophils # 0.3 10*3/uL (0.0-0.87); Eosinophils % 3.4 % (0.00-10.9); Hematocrit 24.1 VOL% (42.0-52.0); Hemoglobin 7.8 GM/DL (14.0-18.0); Immature Granulocytes % 0.4 %; Immature Granulocytes Absolute 0.03 #; Lymphocytes # 0.9 10*3/uL (1.4-4.0); Lymphocytes % 11.8 % (21.2-54.2); Mean Corpuscular HGB Conc 32.4 GM/DL (32-36); Mean Corpuscular Volume 119.3 FL (87-102); Mean Platelet Volume 9.2 FL (9.6-12.0); Monocytes # 0.5 10*3/uL (0.11-0.8); Monocytes % 6.8 % (1.7-12.7); Neutrophils % 77.2 % (38.7-73.9); Platelet Count 155 T/CUMM (130-400); Red Blood Count 2.02 MC/CUMM (3.8-5.5); Red Cell Distribution Width 16.8 % (9.3-17.3); White Blood Count 7.4 T/CUMM (4-12)
[2022-11-11 14:17] LABS: PT Patient Result 10.8 SECS (10.1-12.1)
[2022-11-11] MEDS: SODIUM CHLORIDE 0.45% 1,000 ML IV SCH (14:27)
[2022-11-11] MEDS ORDERED: HEPARIN LOCK FLUSH 500 UNIT/5 ML SYRINGE IV ONE (15:54)
[2022-11-11] MEDS: METOPROLOL TARTRATE 25 MG TABLET PEG SCH ×2 (16:35→20:52)
[2022-11-11] MEDS: levETIRAcetam LIQUID 100 MG/ML 30 ML/BOTTLE PO SCH ×2 (16:35→20:52)
[2022-11-11] MEDS: AMOXICILLIN/CLAV 500 MG TABLET PO SCH (17:34)
[2022-11-11] MEDS: ROSUVASTATIN 20 MG TABLET PEG SCH (20:52)
[2022-11-11] MEDS: FERROUS SULFATE 300 MG/5 ML UDCUP PEG SCH (20:52)
[2022-11-11] MEDS: ZINC OXIDE PASTE 113 GM TUBE TOP PRN (20:52)
[2022-11-11] MEDS: MENTHOL/ZINC OXIDE OINT 71 GM JAR TOP SCH (22:12)
[2022-11-12] MEDS: INSULIN REGULAR 100 UNIT/ML SUBCUT SCH ×4 (01:40→18:39)
[2022-11-12] MEDS: ALBUTEROL/IPRATROPIUM 3 ML NEB RESP TX SCH ×4 (01:44→19:10)
[2022-11-12 05:30] LABS: Basophils % 0.3 % (0.0-0.8); Eosinophils # 0.3 10*3/uL (0.0-0.87); Eosinophils % 4.3 % (0.00-10.9); Hemoglobin 7.6 GM/DL (14.0-18.0); Immature Granulocytes % 0.3 %; Immature Granulocytes Absolute 0.02 #; Lymphocytes % 13.8 % (21.2-54.2); Mean Corpuscular HGB Conc 31.7 GM/DL (32-36); Mean Corpuscular Volume 123.7 FL (87-102); Mean Platelet Volume 10.3 FL (9.6-12.0); Monocytes # 0.5 10*3/uL (0.11-0.8); Monocytes % 6.4 % (1.7-12.7); Neutrophils % 74.9 % (38.7-73.9); Platelet Count 182 T/CUMM (130-400); Red Blood Count 1.94 MC/CUMM (3.8-5.5); Red Cell Distribution Width 16.8 % (9.3-17.3); White Blood Count 7.5 T/CUMM (4-12)
[2022-11-12 06:04] LABS: Calcium 9.4 MG/DL (8.5-10.1); Osmolality,Calculated 320.7 MOS/KG (273-304); Potassium 3.3 MMOL/L (3.5-5.1)
[2022-11-12] MEDS: PANTOPRAZOLE 40 MG TABLET PO SCH ×2 (08:00→18:39)
[2022-11-12] MEDS: METOPROLOL TARTRATE 25 MG TABLET PEG SCH ×2 (09:18→22:25)
[2022-11-12] MEDS: levETIRAcetam LIQUID 100 MG/ML 30 ML/BOTTLE PO SCH ×2 (09:19→22:26)
[2022-11-12] MEDS: MENTHOL/ZINC OXIDE OINT 71 GM JAR TOP SCH ×2 (09:21→22:26)
[2022-11-12] MEDS ORDERED: fentaNYL 100 MCG/2 ML VIAL ONE (15:38)
[2022-11-12] MEDS ORDERED: MIDAZOLAM 2 MG/2 ML VIAL ONE (15:38)
[2022-11-12] MEDS ORDERED: HEPARIN LOCK FLUSH 500 UNIT/5 ML SYRINGE IV ONE ×2 (16:03→16:10)
[2022-11-12] MEDS ORDERED: TISSUE ADHESIVE 1 EACH APPLICATOR TOP ONE (16:05)
[2022-11-12] MEDS ORDERED: HEPARIN LOCK FLUSH 500 UNIT/5 ML SYRINGE IV PRN (17:14)
[2022-11-12] MEDS: [UNRECOGNIZED DRUG - OTHER] PEG SCH (17:35)
[2022-11-12] MEDS: AMOXICILLIN/CLAV 500 MG TABLET PO SCH (17:35)
[2022-11-12] MEDS: FERROUS SULFATE 300 MG/5 ML UDCUP PEG SCH (22:25)
[2022-11-12] MEDS: ROSUVASTATIN 20 MG TABLET PEG SCH (22:26)
[2022-11-12] MEDS: SODIUM CHLORIDE 0.45% 1,000 ML IV SCH (22:26)
[2022-11-13] MEDS: ALBUTEROL/IPRATROPIUM 3 ML NEB RESP TX SCH ×4 (00:15→19:53)
[2022-11-13] MEDS: INSULIN REGULAR 100 UNIT/ML SUBCUT SCH ×4 (00:38→18:30)
[2022-11-13 06:24] LABS: Calcium 9.4 MG/DL (8.5-10.1); Osmolality,Calculated 303.7 MOS/KG (273-304); Potassium 3.4 MMOL/L (3.5-5.1)
[2022-11-13] MEDS: [UNRECOGNIZED DRUG - OTHER] PEG SCH (06:27)
[2022-11-13] MEDS: PANTOPRAZOLE 40 MG TABLET PO SCH (06:29)
[2022-11-13] MEDS: MENTHOL/ZINC OXIDE OINT 71 GM JAR TOP SCH ×2 (08:34→21:28)
[2022-11-13] MEDS: AMOXICILLIN/CLAV 500 MG TABLET PO SCH (08:34)
[2022-11-13] MEDS: levETIRAcetam LIQUID 100 MG/ML 30 ML/BOTTLE PO SCH ×2 (08:34→21:28)
[2022-11-13] MEDS: METOPROLOL TARTRATE 25 MG TABLET PEG SCH ×2 (08:35→21:28)
[2022-11-13] MEDS ORDERED: HEPARIN 10,000 UNIT/10 ML VIAL IV SCH (10:15)
[2022-11-13] MEDS ORDERED: ALTEPLASE 2 MG VIAL IV ONE (10:30)
[2022-11-13] MEDS: OMEPRAZOLE ODT 20 MG TABLET PO SCH (17:30)
[2022-11-13] MEDS: FERROUS SULFATE 300 MG/5 ML UDCUP PEG SCH (21:28)
[2022-11-13] MEDS: ROSUVASTATIN 20 MG TABLET PEG SCH (21:28)
[2022-11-14] MEDS: ALBUTEROL/IPRATROPIUM 3 ML NEB RESP TX SCH ×4 (01:09→19:00)
[2022-11-14] MEDS: INSULIN REGULAR 100 UNIT/ML SUBCUT SCH ×4 (03:12→18:01)
[2022-11-14 05:20] LABS: Calcium 9.3 MG/DL (8.5-10.1); Osmolality,Calculated 310.4 MOS/KG (273-304); Potassium 3.6 MMOL/L (3.5-5.1)
[2022-11-14] MEDS: OMEPRAZOLE ODT 20 MG TABLET PO SCH ×2 (05:55→17:30)
[2022-11-14] MEDS: [UNRECOGNIZED DRUG - OTHER] PEG SCH (05:56)
[2022-11-14 07:53] LABS: Basophils % 0.3 % (0.0-0.8); Eosinophils # 0.2 10*3/uL (0.0-0.87); Eosinophils % 2.8 % (0.00-10.9); Hematocrit 23.6 VOL% (42.0-52.0); Hemoglobin 7.5 GM/DL (14.0-18.0); Immature Granulocytes % 0.4 %; Immature Granulocytes Absolute 0.03 #; Lymphocytes # 0.8 10*3/uL (1.4-4.0); Lymphocytes % 11.7 % (21.2-54.2); Mean Corpuscular HGB Conc 31.8 GM/DL (32-36); Mean Corpuscular Volume 122.9 FL (87-102); Mean Platelet Volume 10.4 FL (9.6-12.0); Monocytes # 0.6 10*3/uL (0.11-0.8); Monocytes % 8.2 % (1.7-12.7); Neutrophils % 76.6 % (38.7-73.9); Platelet Count 142 T/CUMM (130-400); Red Blood Count 1.92 MC/CUMM (3.8-5.5); Red Cell Distribution Width 16.5 % (9.3-17.3); White Blood Count 7.1 T/CUMM (4-12)
[2022-11-14] MEDS: METOPROLOL TARTRATE 25 MG TABLET PEG SCH ×2 (08:12→21:14)
[2022-11-14] MEDS: MENTHOL/ZINC OXIDE OINT 71 GM JAR TOP SCH ×2 (08:20→21:14)
[2022-11-14] MEDS: levETIRAcetam LIQUID 100 MG/ML 30 ML/BOTTLE PO SCH ×2 (09:25→21:14)
[2022-11-14] MEDS ORDERED: ETOMIDATE 40 MG/20 ML VIAL IV ONE (12:04)
[2022-11-14] MEDS ORDERED: AMOXICILLIN/CLAV 500 MG TABLET PO SCH (17:00)
[2022-11-14] MEDS ORDERED: WARFARIN 5 MG TABLET PO SCH (18:00)
[2022-11-14] MEDS: ROSUVASTATIN 20 MG TABLET PEG SCH (21:14)
[2022-11-14] MEDS: FERROUS SULFATE 300 MG/5 ML UDCUP PEG SCH (21:14)
[2022-11-15] MEDS: ALBUTEROL/IPRATROPIUM 3 ML NEB RESP TX SCH ×2 (00:55→07:47)
[2022-11-15 05:36] LABS: Osmolality,Calculated 295.8 MOS/KG (273-304); Potassium 3.3 MMOL/L (3.5-5.1)
[2022-11-15] MEDS: OMEPRAZOLE ODT 20 MG TABLET PO SCH (06:20)
[2022-11-15] MEDS: INSULIN REGULAR 100 UNIT/ML SUBCUT SCH ×2 (06:28→06:31)
[2022-11-15] MEDS: [UNRECOGNIZED DRUG - OTHER] PEG SCH (07:15)
[2022-11-15 08:05] LABS: Basophils % 0.3 % (0.0-0.8); Eosinophils # 0.2 10*3/uL (0.0-0.87); Eosinophils % 2.1 % (0.00-10.9); Hematocrit 23.9 VOL% (42.0-52.0); Hemoglobin 7.6 GM/DL (14.0-18.0); Immature Granulocytes % 0.3 %; Immature Granulocytes Absolute 0.02 #; Lymphocytes % 13.7 % (21.2-54.2); Mean Corpuscular HGB Conc 31.8 GM/DL (32-36); Mean Corpuscular Volume 123.2 FL (87-102); Mean Platelet Volume 10.8 FL (9.6-12.0); Monocytes # 0.5 10*3/uL (0.11-0.8); Monocytes % 7.6 % (1.7-12.7); Platelet Count 133 T/CUMM (130-400); Red Blood Count 1.94 MC/CUMM (3.8-5.5); Red Cell Distribution Width 15.9 % (9.3-17.3); White Blood Count 7.1 T/CUMM (4-12)
[2022-11-15] MEDS: MENTHOL/ZINC OXIDE OINT 71 GM JAR TOP SCH (08:49)
[2022-11-15] MEDS: levETIRAcetam LIQUID 100 MG/ML 30 ML/BOTTLE PO SCH (08:49)
[2022-11-15] MEDS: METOPROLOL TARTRATE 25 MG TABLET PEG SCH (08:50)
[2022-11-15 09:02] LABS: PT Patient Result 10.8 SECS (10.1-12.1)
[2022-11-15 12:06] VITALS: BP 122/88
== END 2022-11-15 12:30 | DRG 177 ==
LOC: SUATTDRO → N.ED 00:46 → N.EDINP 05:08 → SUATTDRO 05:08 → N.3E 13:43 → UNDODISIN 11-15 11:53
PROVIDERS: ADMIT Internal Medicine; ATTEND Emergency Medicine
PROC: IRFLCVC (2022-11-11 12:05)

== ENCOUNTER 2022-11-16 08:48 | Inpatient (IN) ==
[2022-11-16] MEDS ORDERED: VANCOMYCIN INJ 1,000 MG in SODIUM CHLORIDE 0.9% 250 ML IV STA ×2 (09:05→09:11)
[2022-11-16] MEDS ORDERED: PIPERACILLIN/TAZOBACTAM 3,375 MG in SODIUM CHLORIDE 0.9% 100 ML IV STA (09:05)
[2022-11-16 09:14] LABS: Basophils # 0.1 10*3/uL (0.0-0.2); Basophils % 0.3 % (0.0-0.8); Eosinophils % 0.2 % (0.00-10.9); Hematocrit 22.2 VOL% (42.0-52.0); Hemoglobin 7.1 GM/DL (14.0-18.0); Immature Granulocytes % 1.1 %; Immature Granulocytes Absolute 0.21 #; Lymphocytes # 0.8 10*3/uL (1.4-4.0); Lymphocytes % 4.2 % (21.2-54.2); Mean Platelet Volume 10.8 FL (9.6-12.0); Monocytes # 0.9 10*3/uL (0.11-0.8); Monocytes % 4.6 % (1.7-12.7); NRBC # 0.04 10*3/uL; Neutrophils % 89.6 % (38.7-73.9); Platelet Count 164 T/CUMM (130-400); Red Blood Count 1.79 MC/CUMM (3.8-5.5); Red Cell Distribution Width 15.8 % (9.3-17.3)
[2022-11-16 09:28] LABS: Albumin 2.8 G/DL (3.4-5.0); Bilirubin,Total 0.4 MG/DL (0.20-1.00); Calcium 8.9 MG/DL (8.5-10.1); Potassium 3.5 MMOL/L (3.5-5.1); Total Protein 8.3 G/DL (6.4-8.2)
[2022-11-16 09:35] LABS: Hypochromia Slight; Lymphocytes 2 % (20-55); Macrocytosis 1+; Total Cells Counted 100
[2022-11-16 09:37] LABS: Platelet Estimate Adequate
[2022-11-16] MEDS ORDERED: SODIUM CHLORIDE 0.9% 500 ML IV STA (09:55)
[2022-11-16] MEDS ORDERED: HYDROCORTISONE 100 MG VIAL IV STA (09:55)
[2022-11-16 10:12] LABS: Arterial Base Excess iSTAT -3 MMOL/L (-2.5-2.5); Arterial Bicarbonate iSTAT 23.2 MMOL/L (20-26); Arterial O2 Saturation iSTAT 27 % (95-100); Arterial PCO2 iSTAT 46 MM HG (35-48); Arterial PO2 iSTAT 20 MM HG (80-95); Arterial Total CO2 iSTAT 25 MMO/L (23-27)
[2022-11-16] MEDS ORDERED: ALBUTEROL 2.5 MG/3 ML NEB RESP TX PRN (10:15)
[2022-11-16] MEDS ORDERED: PANTOPRAZOLE 40 MG VIAL IV SCH (12:00)
[2022-11-16] MEDS: PHENYLEPHRINE DRIP 40 MG/250 ML PREMIX IV PRN ×2 (14:10→18:55)
[2022-11-16] MEDS ORDERED: HYDROCORTISONE 100 MG VIAL IV SCH (16:00)
[2022-11-16] MEDS ORDERED: HEPARIN 10,000 UNIT/10 ML VIAL IV PRN (17:19)
[2022-11-16] MEDS ORDERED: ALBUMIN 25% 25 GM/100 ML VIAL IV ONE (17:30)
[2022-11-16] MEDS ORDERED: ALBUMIN 25% 25 GM/100 ML VIAL IV PRN (18:30)
[2022-11-16] MEDS ORDERED: PHENYLEPHRINE DRIP 40 MG/250 ML PREMIX IV ONE (18:54)
[2022-11-16] MEDS: ENOXAPARIN 30 MG/0.3 ML SYRINGE SUBCUT SCH (20:27)
[2022-11-16] MEDS: HYDROCORTISONE 100 MG VIAL IV SCH (20:45)
[2022-11-16] MEDS: PANTOPRAZOLE 40 MG VIAL IV SCH (20:45)
[2022-11-17] MEDS: PHENYLEPHRINE DRIP 40 MG/250 ML PREMIX IV PRN ×3 (00:08→06:10)
[2022-11-17] MEDS: HYDROCORTISONE 100 MG VIAL IV SCH ×3 (04:09→21:39)
[2022-11-17 04:31] LABS: Bilirubin,Total 0.5 MG/DL (0.20-1.00); Calcium 8.7 MG/DL (8.5-10.1); Osmolality,Calculated 294.4 MOS/KG (273-304); Potassium 3.8 MMOL/L (3.5-5.1); Total Protein 7.9 G/DL (6.4-8.2)
[2022-11-17 05:32] LABS: Basophils % 0.1 % (0.0-0.8); Eosinophils % 0.1 % (0.00-10.9); Immature Granulocytes % 0.8 %; Immature Granulocytes Absolute 0.13 #; Lymphocytes # 0.9 10*3/uL (1.4-4.0); Lymphocytes % 5.4 % (21.2-54.2); Mean Corpuscular Volume 122.9 FL (87-102); Mean Platelet Volume 9.8 FL (9.6-12.0); Monocytes # 0.6 10*3/uL (0.11-0.8); Monocytes % 3.6 % (1.7-12.7); NRBC # 0.05 10*3/uL; Platelet Count 150 T/CUMM (130-400); Red Cell Distribution Width 16.2 % (9.3-17.3); White Blood Count 17.3 T/CUMM (4-12)
[2022-11-17 05:35] LABS: Hematocrit 17.2 VOL% (42.0-52.0); Hemoglobin 5.5 GM/DL (14.0-18.0)
[2022-11-17] MEDS ORDERED: SODIUM CHLORIDE 0.9% 1,000 ML IV PRN (05:41)
[2022-11-17 06:01] LABS: Hypochromia 2+
[2022-11-17 06:02] LABS: Macrocytosis 1+; Platelet Estimate Normal
[2022-11-17] MEDS: MEROPENEM 500 MG in SODIUM CHLORIDE 0.9% 100 ML IV SCH ×2 (09:45→21:33)
[2022-11-17 18:08] VITALS: BP 109/74
[2022-11-17] MEDS: PANTOPRAZOLE 40 MG VIAL IV SCH (21:39)
[2022-11-17] MEDS: ENOXAPARIN 30 MG/0.3 ML SYRINGE SUBCUT SCH (21:39)
[2022-11-18] MEDS: HYDROCORTISONE 100 MG VIAL IV SCH ×3 (03:59→15:19)
[2022-11-18 05:07] LABS: Basophils % 0.1 % (0.0-0.8); Hematocrit 23.5 VOL% (42.0-52.0); Immature Granulocytes % 0.7 %; Immature Granulocytes Absolute 0.08 #; Lymphocytes # 0.6 10*3/uL (1.4-4.0); Lymphocytes % 4.9 % (21.2-54.2); Mean Corpuscular HGB Conc 31.5 GM/DL (32-36); Mean Corpuscular Volume 116.3 FL (87-102); Mean Platelet Volume 10.7 FL (9.6-12.0); Monocytes # 0.3 10*3/uL (0.11-0.8); Monocytes % 2.8 % (1.7-12.7); NRBC # 0.07 10*3/uL; Neutrophils % 91.5 % (38.7-73.9); Platelet Count 129 T/CUMM (130-400); White Blood Count 12.3 T/CUMM (4-12)
[2022-11-18 05:09] LABS: Hemoglobin 7.4 GM/DL (14.0-18.0); Red Blood Count 2.02 MC/CUMM (3.8-5.5)
[2022-11-18 05:17] LABS: Calcium 9.4 MG/DL (8.5-10.1); Osmolality,Calculated 299.5 MOS/KG (273-304); Potassium 3.8 MMOL/L (3.5-5.1)
[2022-11-18 05:29] LABS: Lymphocytes 8 % (20-55); Macrocytosis 1+; Nucleated Red Blood Cells 1 /100 WBC (0-5); Polychromasia Slight; Total Cells Counted 100
[2022-11-18 05:30] LABS: Hypochromia 1+
[2022-11-18 05:31] LABS: Platelet Estimate Adequate
[2022-11-18 07:58] LABS: INR 1.1; PT Patient Result 12.1 SECS (10.1-12.1)
[2022-11-18] MEDS ORDERED: METOPROLOL TARTRATE 25 MG TABLET PO SCH (09:00)
[2022-11-18] MEDS: MEROPENEM 500 MG in SODIUM CHLORIDE 0.9% 100 ML IV SCH (09:30)
[2022-11-18] MEDS ORDERED: MORPHINE 2 MG/1 ML SYRINGE IV ONE ×2 (10:35→15:17)
[2022-11-18] MEDS ORDERED: MORPHINE 2 MG/1 ML SYRINGE IV PRN ×2 (12:58→15:18)
[2022-11-18 13:05] LABS: Basophils % 0.1 % (0.0-0.8); Hematocrit 31.7 VOL% (42.0-52.0); Hemoglobin 10.1 GM/DL (14.0-18.0); Immature Granulocytes % 0.7 %; Immature Granulocytes Absolute 0.08 #; Lymphocytes # 0.5 10*3/uL (1.4-4.0); Lymphocytes % 3.9 % (21.2-54.2); Mean Corpuscular HGB Conc 31.9 GM/DL (32-36); Mean Corpuscular Volume 110.8 FL (87-102); Mean Platelet Volume 10.5 FL (9.6-12.0); Monocytes # 0.6 10*3/uL (0.11-0.8); Monocytes % 4.7 % (1.7-12.7); Neutrophils % 90.6 % (38.7-73.9); Platelet Count 114 T/CUMM (130-400); Red Blood Count 2.86 MC/CUMM (3.8-5.5); Red Cell Distribution Width 22.4 % (9.3-17.3)
[2022-11-18 13:35] LABS: Lymphocytes 4 % (20-55); Nucleated Red Blood Cells 3 /100 WBC (0-5); Total Cells Counted 100
[2022-11-18 13:36] LABS: Anisocytosis 1+
[2022-11-18 13:37] LABS: Platelet Estimate Normal
[2022-11-18] MEDS ORDERED: BISACODYL 10 MG SUPP RECTAL ONE (13:53)
[2022-11-18] MEDS: CEFEPIME 1,000 MG in SODIUM CHLORIDE 0.9% 100 ML IV SCH (15:30)
[2022-11-18] MEDS ORDERED: VANCOMYCIN INJ 1,000 MG in SODIUM CHLORIDE 0.9% 250 ML IV PRN (17:00)
[2022-11-18] MEDS ORDERED: VANCOMYCIN INJ 1,000 MG in SODIUM CHLORIDE 0.9% 250 ML IV ONE (17:00)
[2022-11-18 19:42] LABS: Basophils % 0.1 % (0.0-0.8); Hematocrit 28.2 VOL% (42.0-52.0); Hemoglobin 9.3 GM/DL (14.0-18.0); Immature Granulocytes % 0.5 %; Immature Granulocytes Absolute 0.06 #; Lymphocytes # 0.5 10*3/uL (1.4-4.0); Lymphocytes % 3.7 % (21.2-54.2); Mean Corpuscular Volume 107.6 FL (87-102); Mean Platelet Volume 9.9 FL (9.6-12.0); Monocytes # 0.5 10*3/uL (0.11-0.8); Monocytes % 4.3 % (1.7-12.7); NRBC # 0.13 10*3/uL; Neutrophils % 91.4 % (38.7-73.9); Platelet Count 113 T/CUMM (130-400); Red Blood Count 2.62 MC/CUMM (3.8-5.5); Red Cell Distribution Width 22.2 % (9.3-17.3); White Blood Count 12.7 T/CUMM (4-12)
[2022-11-18 20:09] LABS: Lymphocytes 4 % (20-55); Macrocytosis Slight; Total Cells Counted 100
[2022-11-18 20:10] LABS: Platelet Estimate Normal; Stomatocytes Slight
[2022-11-18] MEDS: METOPROLOL TARTRATE 25 MG TABLET PO SCH (20:20)
[2022-11-18] MEDS: levETIRAcetam 250 MG TABLET PO SCH (20:20)
[2022-11-18] MEDS: ROSUVASTATIN 20 MG TABLET PEG SCH (20:20)
[2022-11-18] MEDS: PANTOPRAZOLE 40 MG VIAL IV SCH (20:21)
[2022-11-18] MEDS: MENTHOL/ZINC OXIDE OINT 71 GM JAR TOP SCH (20:21)
[2022-11-19] MEDS: HYDROCORTISONE 100 MG VIAL IV SCH (01:54)
[2022-11-19] MEDS: CEFEPIME 1,000 MG in SODIUM CHLORIDE 0.9% 100 ML IV SCH ×2 (03:04→17:00)
[2022-11-19 04:30] LABS: Basophils % 0.1 % (0.0-0.8); Hematocrit 27.6 VOL% (42.0-52.0); Hemoglobin 9.1 GM/DL (14.0-18.0); Immature Granulocytes % 0.6 %; Immature Granulocytes Absolute 0.09 #; Lymphocytes # 0.5 10*3/uL (1.4-4.0); Lymphocytes % 3.2 % (21.2-54.2); Mean Corpuscular Volume 109.1 FL (87-102); Mean Platelet Volume 10.7 FL (9.6-12.0); Monocytes # 0.7 10*3/uL (0.11-0.8); Monocytes % 5.1 % (1.7-12.7); NRBC # 0.12 10*3/uL; Platelet Count 151 T/CUMM (130-400); Red Blood Count 2.53 MC/CUMM (3.8-5.5); Red Cell Distribution Width 22.3 % (9.3-17.3); White Blood Count 14.2 T/CUMM (4-12)
[2022-11-19 04:38] LABS: INR 1.1; PT Patient Result 12.2 SECS (10.1-12.1)
[2022-11-19 04:51] LABS: Band Neutrophils 1 % (0-10); Hypersegmented Neutrophil SLIGHT; Lymphocytes 4 % (20-55); Nucleated Red Blood Cells 1 /100 WBC (0-5); Total Cells Counted 100
[2022-11-19 04:52] LABS: Macrocytosis 1+; Platelet Estimate Adequate; Polychromasia Slight
[2022-11-19 04:56] LABS: Albumin 3.6 G/DL (3.4-5.0); Bilirubin,Total 0.5 MG/DL (0.20-1.00); Calcium 9.3 MG/DL (8.5-10.1); Osmolality,Calculated 291.8 MOS/KG (273-304); Potassium 3.4 MMOL/L (3.5-5.1); Total Protein 8.7 G/DL (6.4-8.2)
[2022-11-19 05:03] LABS: Calcium 9.4 MG/DL (8.5-10.1); Potassium 3.4 MMOL/L (3.5-5.1)
[2022-11-19] MEDS: levETIRAcetam 250 MG TABLET PO SCH ×2 (05:42→20:22)
[2022-11-19] MEDS: MENTHOL/ZINC OXIDE OINT 71 GM JAR TOP SCH ×2 (08:56→20:23)
[2022-11-19] MEDS: METOPROLOL TARTRATE 25 MG TABLET PO SCH ×2 (08:56→20:23)
[2022-11-19] MEDS ORDERED: GLUCAGON 1 MG VIAL IM PRN (09:02)
[2022-11-19] MEDS ORDERED: DEXTROSE 10% 250 ML BAG IV PRN (09:02)
[2022-11-19] MEDS ORDERED: MORPHINE 2 MG/1 ML SYRINGE IV PRN (09:04)
[2022-11-19] MEDS: INSULIN LISPRO 100 UNIT/ML SUBCUT SCH ×2 (11:20→18:10)
[2022-11-19 14:22] LABS: Eosinophils % 0.1 % (0.00-10.9); Hematocrit 27.5 VOL% (42.0-52.0); Hemoglobin 9.1 GM/DL (14.0-18.0); Immature Granulocytes % 0.5 %; Immature Granulocytes Absolute 0.07 #; Lymphocytes # 0.8 10*3/uL (1.4-4.0); Lymphocytes % 5.8 % (21.2-54.2); Mean Corpuscular HGB Conc 33.1 GM/DL (32-36); Mean Corpuscular Volume 109.1 FL (87-102); Mean Platelet Volume 10.1 FL (9.6-12.0); Monocytes % 6.9 % (1.7-12.7); NRBC # 0.14 10*3/uL; Neutrophils % 86.7 % (38.7-73.9); Platelet Count 136 T/CUMM (130-400); Red Blood Count 2.52 MC/CUMM (3.8-5.5); Red Cell Distribution Width 22.3 % (9.3-17.3); White Blood Count 13.8 T/CUMM (4-12)
[2022-11-19] MEDS: METOCLOPRAMIDE 10 MG/2 ML VIAL IV SCH ×2 (16:58→21:39)
[2022-11-19] MEDS: ROSUVASTATIN 20 MG TABLET PEG SCH (20:23)
[2022-11-19] MEDS: PANTOPRAZOLE 40 MG VIAL IV SCH (20:23)
[2022-11-19 22:40] LABS: Basophils % 0.1 % (0.0-0.8); Eosinophils # 0.1 10*3/uL (0.0-0.87); Eosinophils % 0.4 % (0.00-10.9); Hematocrit 28.1 VOL% (42.0-52.0); Hemoglobin 9.2 GM/DL (14.0-18.0); Immature Granulocytes % 0.7 %; Immature Granulocytes Absolute 0.09 #; Lymphocytes # 1.1 10*3/uL (1.4-4.0); Lymphocytes % 8.1 % (21.2-54.2); Mean Corpuscular HGB Conc 32.7 GM/DL (32-36); Mean Corpuscular Volume 109.3 FL (87-102); Mean Platelet Volume 10.3 FL (9.6-12.0); Monocytes # 0.8 10*3/uL (0.11-0.8); Monocytes % 6.1 % (1.7-12.7); NRBC # 0.15 10*3/uL; Neutrophils % 84.6 % (38.7-73.9); Platelet Count 143 T/CUMM (130-400); Red Blood Count 2.57 MC/CUMM (3.8-5.5); Red Cell Distribution Width 22.3 % (9.3-17.3); White Blood Count 13.3 T/CUMM (4-12)
[2022-11-20] MEDS: INSULIN LISPRO 100 UNIT/ML SUBCUT SCH ×4 (00:14→18:35)
[2022-11-20] MEDS: METOCLOPRAMIDE 10 MG/2 ML VIAL IV SCH ×4 (04:23→22:03)
[2022-11-20 04:52] LABS: Basophils % 0.1 % (0.0-0.8); Eosinophils # 0.1 10*3/uL (0.0-0.87); Eosinophils % 0.8 % (0.00-10.9); Hematocrit 28.6 VOL% (42.0-52.0); Hemoglobin 9.2 GM/DL (14.0-18.0); Immature Granulocytes % 0.5 %; Immature Granulocytes Absolute 0.06 #; Lymphocytes # 1.1 10*3/uL (1.4-4.0); Lymphocytes % 9.5 % (21.2-54.2); Mean Corpuscular HGB Conc 32.2 GM/DL (32-36); Mean Platelet Volume 10.3 FL (9.6-12.0); Monocytes # 0.7 10*3/uL (0.11-0.8); Monocytes % 6.1 % (1.7-12.7); NRBC # 0.14 10*3/uL; Platelet Count 142 T/CUMM (130-400); Red Cell Distribution Width 22.2 % (9.3-17.3); White Blood Count 11.6 T/CUMM (4-12)
[2022-11-20 05:10] LABS: Calcium 9.1 MG/DL (8.5-10.1); Osmolality,Calculated 306.7 MOS/KG (273-304); Potassium 3.4 MMOL/L (3.5-5.1)
[2022-11-20 05:28] LABS: Platelet Estimate Adequate
[2022-11-20 05:29] LABS: Anisocytosis 2+; Macrocytosis 1+
[2022-11-20 06:18] LABS: Basophils % 0.1 % (0.0-0.8); Eosinophils # 0.1 10*3/uL (0.0-0.87); Eosinophils % 0.9 % (0.00-10.9); Hemoglobin 9.2 GM/DL (14.0-18.0); Immature Granulocytes % 0.7 %; Immature Granulocytes Absolute 0.08 #; Lymphocytes # 1.2 10*3/uL (1.4-4.0); Lymphocytes % 9.8 % (21.2-54.2); Mean Corpuscular HGB Conc 32.9 GM/DL (32-36); Mean Corpuscular Volume 109.8 FL (87-102); Mean Platelet Volume 10.4 FL (9.6-12.0); Monocytes # 0.8 10*3/uL (0.11-0.8); Monocytes % 6.3 % (1.7-12.7); NRBC # 0.15 10*3/uL; Neutrophils % 82.2 % (38.7-73.9); Platelet Count 141 T/CUMM (130-400); Red Blood Count 2.55 MC/CUMM (3.8-5.5); Red Cell Distribution Width 22.2 % (9.3-17.3)
[2022-11-20] MEDS: levETIRAcetam 250 MG TABLET PO SCH ×2 (06:26→20:59)
[2022-11-20 06:40] LABS: Macrocytosis 1+
[2022-11-20] MEDS: METOPROLOL TARTRATE 25 MG TABLET PO SCH ×2 (09:41→20:59)
[2022-11-20] MEDS: MENTHOL/ZINC OXIDE OINT 71 GM JAR TOP SCH ×2 (09:41→20:59)
[2022-11-20] MEDS ORDERED: METOPROLOL TARTRATE 5 MG/5 ML VIAL IV ONE (11:24)
[2022-11-20] MEDS ORDERED: DIGOXIN 0.5 MG/2 ML AMP IV ONE (14:08)
[2022-11-20 14:34] LABS: Basophils % 0.1 % (0.0-0.8); Eosinophils # 0.2 10*3/uL (0.0-0.87); Eosinophils % 1.5 % (0.00-10.9); Hematocrit 29.7 VOL% (42.0-52.0); Hemoglobin 9.8 GM/DL (14.0-18.0); Immature Granulocytes % 1.3 %; Immature Granulocytes Absolute 0.18 #; Lymphocytes % 6.9 % (21.2-54.2); Mean Corpuscular Volume 109.6 FL (87-102); Mean Platelet Volume 10.2 FL (9.6-12.0); Monocytes # 0.7 10*3/uL (0.11-0.8); Neutrophils % 85.2 % (38.7-73.9); Platelet Count 147 T/CUMM (130-400); Red Blood Count 2.71 MC/CUMM (3.8-5.5); Red Cell Distribution Width 22.3 % (9.3-17.3); White Blood Count 14.3 T/CUMM (4-12)
[2022-11-20 16:01] LABS: Anisocytosis 1+; Macrocytosis 1+; Platelet Estimate Adequate
[2022-11-20] MEDS ORDERED: VANCOMYCIN INJ 1,000 MG in SODIUM CHLORIDE 0.9% 250 ML IV ONE (17:00)
[2022-11-20] MEDS: CEFEPIME 1,000 MG in SODIUM CHLORIDE 0.9% 100 ML IV SCH (18:40)
[2022-11-20] MEDS: PANTOPRAZOLE 40 MG VIAL IV SCH (20:59)
[2022-11-20] MEDS: ROSUVASTATIN 20 MG TABLET PEG SCH (20:59)
[2022-11-21 05:24] LABS: Phosphorous 1.7 MG/DL (2.5-4.9)
[2022-11-21] MEDS: METOCLOPRAMIDE 10 MG/2 ML VIAL IV SCH ×2 (05:39→09:09)
[2022-11-21] MEDS: INSULIN LISPRO 100 UNIT/ML SUBCUT SCH ×3 (05:40→13:13)
[2022-11-21 07:30] LABS: Folate > 24.00 NG/ML (5.38-24.0); Vitamin B12 972 PG/ML (211-911)
[2022-11-21 08:20] LABS: Basophils % 0.1 % (0.0-0.8); Eosinophils # 0.2 10*3/uL (0.0-0.87); Eosinophils % 1.3 % (0.00-10.9); Hematocrit 28.7 VOL% (42.0-52.0); Hemoglobin 9.4 GM/DL (14.0-18.0); Immature Granulocytes % 0.6 %; Immature Granulocytes Absolute 0.07 #; Lymphocytes # 1.1 10*3/uL (1.4-4.0); Lymphocytes % 8.9 % (21.2-54.2); Mean Corpuscular HGB Conc 32.8 GM/DL (32-36); Mean Corpuscular Volume 110.4 FL (87-102); Mean Platelet Volume 11.3 FL (9.6-12.0); Monocytes # 0.7 10*3/uL (0.11-0.8); NRBC # 0.07 10*3/uL; Neutrophils % 83.1 % (38.7-73.9); Platelet Count 150 T/CUMM (130-400); Red Cell Distribution Width 22.3 % (9.3-17.3); White Blood Count 12.3 T/CUMM (4-12)
[2022-11-21 08:44] LABS: Calcium 9.4 MG/DL (8.5-10.1); Osmolality,Calculated 290.7 MOS/KG (273-304); Potassium 4.9 MMOL/L (3.5-5.1)
[2022-11-21] MEDS: levETIRAcetam 250 MG TABLET PO SCH (08:58)
[2022-11-21] MEDS: METOPROLOL TARTRATE 25 MG TABLET PO SCH (08:58)
[2022-11-21] MEDS: MENTHOL/ZINC OXIDE OINT 71 GM JAR TOP SCH (08:58)
[2022-11-21 09:18] LABS: Macrocytosis 1+
[2022-11-21 09:21] LABS: Polychromasia Slight
[2022-11-21 09:22] LABS: Platelet Estimate Normal
[2022-11-21] MEDS ORDERED: cefTRIAXone 1,000 MG in SODIUM CHLORIDE 0.9% 100 ML IV SCH (10:00)
[2022-11-21] MEDS ORDERED: DIGOXIN 0.125 MG TABLET PO SCH (13:00)
== END 2022-11-21 15:25 | DRG 291 ==
LOC: N.ED 08:48 → N.EDINP 09:51 → SUATTDRO 09:51 → N.ICU 10:41
PROVIDERS: ADMIT Internal Medicine; ATTEND Family Medicine